=== PATIENT | male | born 1965 | race Caucasian/White ===

== ENCOUNTER → 2023-12-04 14:47 | Outpatient (BNVA) | payer MEDICARE, SELFPAY | DX: I48.91 Unspecified atrial fibrillation (principal) | CPT/HCPCS: 80053; 85025 ==

== ENCOUNTER → 2023-12-10 13:30 | Outpatient (BNVA) | payer MEDICARE, SELFPAY | PROVIDERS: Visit Provider Orthopaedic Surgery | DX: M48.062 Spinal stenosis, lumbar region with neurogenic claudication (principal); Z98.1 Arthrodesis status | CPT/HCPCS: 72110; 99204 ==

== ENCOUNTER 2023-12-24 13:37 | Emergency (ER) | payer MEDICARE, SELFPAY ==
[2023-12-24 14:28] VITALS: BP 117/75; PULSE 83; RESP 18; TEMP 36.4; O2SAT 96
--- NOTE | 2023-12-24 14:49 | CTR_ITS ---
PROCEDURE INFORMATION: Exam: CT Lumbar Spine Without Contrast Exam date and time: 12/24/2023 2:54 PM Age: 58 years old Clinical indication: Low back pain TECHNIQUE: Imaging protocol: Computed tomography of the lumbar spine without contrast. Radiation optimization: All CT scans at this facility use at least one of these dose optimization techniques: automated exposure control; mA and/or kV adjustment per patient size (includes targeted exams where dose is matched to clinical indication); or iterative reconstruction. COMPARISON: CR XR lumbar spine min 4V [id number] 12/10/2023 1:58 PM RADIATION DOSE METRICS: Total DLP (mGy-cm): 873 FINDINGS: Bones/joints: There has been previous lower lumbar dorsal decompression and fusion of the L4 through S1 vertebrae, with bilateral pedicle screws and paraspinal rods. No definite hardware related complication is evident. Bilateral osseous fusion are noted. There is an interbody fusion at the L4-L5. Severe loss disc height is seen at L5-S1. There is no anterior wedging deformity. No acute lucent fracture are visualized. Schmorl's nodes at the L2-L3 level are age indeterminate. There is severe facet arthropathy at L3-L4, the lowest non fused lumbar spinal level. No severe central canal stenosis is demonstrated by CT. Neural foraminal seen bilaterally L3-L4 and L5-S1. Soft tissue density in the right lateral recess at L5-S1 may reflect postoperative changes, but recurrent disc extrusion is not excluded. Soft tissues: Unremarkable. CT/CT lumbar spine wo con* [id number] IMPRESSION: 1. Extensive postsurgical changes of the lower lumbar spine, as above. No hardware related complication is evident. 2. Soft tissue density in the right lateral recess at L5-S1 may reflect postoperative changes, but recurrent disc extrusion is not excluded.
--- NOTE | 2023-12-24 15:32 | W.ED.BACK ---
HPI - Back Pain/Injury General: Chief Complaint: Back Pain/Injury Stated Complaint: Low back pain Time Seen by Provider: 12/24/23 14:47 History of Present Illness: 58-year-old man with a history of COPD, A-fib and pacemaker placement who presents to the emergency room with low back pain after fall this morning. He has chronic low back pain issues and has an MRI scheduled in [place] because he has the pacemaker he cannot have it done here. This morning he tripped over a dog and fell. He is having worsening pain in his low back. He is still ambulatory. No saddle numbness, no urinary retention or incontinence, no focal motor deficit, no sensory deficit. no recent fever. no cough. no shortness of breath. no chest pain. no abdominal pain. no nausea or vomiting. no dysuria. no altered mental status. no edema. Related Data Home Medications Medication Instructions Recorded Confirmed ribavirin 200 mg capsule 400 mg PO QAM 12/04/23 12/10/23 sofosbuvir 400 mg-velpatasvir 100 1 tab PO DAILY 12/04/23 12/10/23 mg tablet (Epclusa) sotalol 80 mg tablet 80 mg PO BID 12/04/23 12/10/23 Previous Rx's Medication Instructions Recorded albuterol sulfate 2.5 mg/3 mL 2.5 mg (3 mL) inhalation QID #75 mL 12/04/23 (0.083 %) solution for nebulization apixaban 5 mg tablet (Eliquis) 5 mg PO BID #60 tabs 12/04/23 cyclobenzaprine 5 mg tablet 5 mg PO TID PRN muscle spasm #90 12/04/23 tabs gabapentin 100 mg capsule 100 mg PO DAILY #30 caps 12/04/23 prednisone 20 mg tablet 20 mg PO DAILY #15 tabs 12/16/23 dexamethasone 6 mg tablet 6 mg PO DAILY 5 days #5 tabs 12/24/23 diclofenac sodium 50 mg 50 mg PO BID PRN pain #14 tabs 12/24/23 tablet,delayed release hydrocodone 5 mg-acetaminophen 325 1 tab PO Q6H PRN pain #20 tabs 12/24/23 mg tablet polyethylene glycol 3350 17 17 g PO DAILY #510 grams 12/24/23 gram/dose oral powder (Miralax) Allergies Allergy/AdvReac Type Severity Reaction Status Date / Time No Known Allergies Allergy Verified 12/24/23 14:33 Review of Systems Narrative: Constitutional symptoms: Negative except as documented in HPI. Skin symptoms: Negative except as documented in HPI. Eye symptoms: Negative except as documented in HPI. ENMT symptoms: Negative except as documented in HPI. Respiratory symptoms: Negative except as documented in HPI. Cardiovascular symptoms: Negative except as documented in HPI. Gastrointestinal symptoms: Negative except as documented in HPI. Genitourinary symptoms: Negative except as documented in HPI. Musculoskeletal symptoms: Negative except as documented in HPI. Neurologic symptoms: Negative except as documented in HPI. Psychiatric symptoms: Negative except as documented in HPI. Endocrine symptoms: Negative except as documented in HPI. PFS ED PFSH: Medical History (Updated 12/24/23 @ 15:37 by Latia Che MD) Encounter to establish care COPD (chronic obstructive pulmonary disease) Atrial fibrillation Hepatitis C Pacemaker 2023 Family History Father Congestive heart failure (CHF) Mother Heart disease Diabetes Brother Diabetes Social History Smoking and tobacco/nicotine status: never used tobacco/nicotine Physical Exam Narrative: EXAM NARRATIVE: General: Alert, no acute distress. Head: Normocephalic Neck: Trachea midline Eye: Extraocular movements are intact. Ears, nose, mouth and throat: Oral mucosa moist Respiratory: Respirations are non-labored Musculoskeletal: Normal ROM Back: no step off, no focal tenderness, some paraspinal muscle tenderness Neurological: Alert and oriented to person, place, time, and situation, No focal neurological deficit observed. Psychiatric: Cooperative, appropriate mood & affect. Course Vital Signs: Vital signs: Vital Signs Temperature 97.5 F L 12/24/23 14:28 Pulse Rate 83 12/24/23 14:28 Respiratory Rate 18 12/24/23 14:28 Blood Pressure 117/75 12/24/23 14:28 Pulse Oximetry 96 12/24/23 14:28 Oxygen Delivery Me thod Room Air 12/24/23 14:28 MDM - Back Pain/Injury Medical Decision Making CT of the lumbar spine: There is hardware present in the lumbar spine. No obvious hardware failures. No fracture. There may be evidence of some disc protrusion. No signs of canal stenosis. Patient will need an MRI and this is being scheduled in [place]. Cannot be done here because of his pacemaker. Good alignment. No step-offs. This was reviewed and interpreted by myself the emergency room physician. Assessment and plan: Acute on chronic low back pain Fall Lumbar strain ? IM Toradol, IM Decadron and p.o. [place]. - Discharged home - Discussed plan with patient. Answered any questions. - Evaluation and treatment of this problem were appropriate in the emergency setting. Labs Radiology Impressions Lumbar Spine CT 12/24/23 14:49 IMPRESSION: 1. Extensive postsurgical changes of the lower lumbar spine, as above. No hardware related complication is evident. 2. Soft tissue density in the right lateral recess at L5-S1 may reflect postoperative changes, but recurrent disc extrusion is not excluded. All radiology interpretation(s) finalized by discharge Discharge Plan Discharge Patient Disposition: Home Clinical Impression: Strain of lumbar region, History of back surgery, Acute exacerbation of chronic low back pain, Fall Condition: Stable Prescriptions: New hydrocodone-acetaminophen 5-325 mg tablet 1 tab PO Q6H PRN (Reason: pain) Qty: 20 0RF dexamethasone 6 mg tablet 6 mg PO DAILY 5 Days Qty: 5 0RF diclofenac sodium 50 mg tablet,delayed release (DR/EC) 50 mg PO BID PRN (Reason: pain) Qty: 14 0RF polyethylene glycol 3350 [Miralax] 17 gram/dose powder 17 g PO DAILY Qty: 510 0RF Rx Instructions: Take 1 scoop daily while taking pain medications. No Action sotalol 80 mg tablet 80 mg PO BID sofosbuvir-velpatasvir [Epclusa] 400-100 mg tablet 1 tab PO DAILY ribavirin 200 mg capsule 400 mg PO QAM Rx Instructions: must administer with food, preferably a high-fat meal albuterol sulfate 2.5 mg /3 mL (0.083 %) solution for nebulization 2.5 mg inhalation QID Qty: 75 0RF Eliquis 5 mg tablet 5 mg PO BID Qty: 60 2RF gabapentin 100 mg capsule 100 mg PO DAILY Qty: 30 2RF cyclobenzaprine 5 mg tablet 5 mg PO TID PRN (Reason: muscle spasm) Qty: 90 0RF prednisone 20 mg tablet 20 mg PO DAILY Qty: 15 0RF Rx Instructions: 60MG for 3 days 40MG for 2 days 20MG for 2 days Discharge Orders: Discharge ED (Routine); Ordered 12/24/23 Ordered By: Latia Che Referrals: Oren Andrews DO [Physician] - 1-3 days (Please call for an appointment and follow-up in the next few days.) Lakeisha Linder, MARGARET [Primary Care Provider] - Discharge Diet: Usual diet Discharge Activity: Increase activity as tolerated Patient Instructions: Back Pain (ED), Opioid Safety, Pain Management Activity Restrictions/Additional Instructions: Thank you for choosing [facility] for your healthcare needs today. Please realize this is an emergency room and that we are providing you with a medical screening exam and this may not be complete and all inclusive of all the testing and or work up that you may need to determine your ailment or severity of your illness. You have been screened and evaluated and felt safe for discharge. Health conditions do change or evolve sometimes and as such it is important that you follow up with your Primary Doctor to be re checked, 3-5 days is a general good time frame for follow up. You are always welcome to return to the ED for re assessment if your symptoms are worsening or you have new concerns Coding Level of Care Code ED Reading Specialist for Colleen Vaughan
[2023-12-24] MEDS: HYDROcodone-acetaminophen 10-325 mg Tablet 1 TAB PO (15:52)
[2023-12-24] MEDS: dexamethasone 10 mg/mL INJ IM (15:53)
[2023-12-24] MEDS: ketorolac 60 mg/2 mL INJ IM (15:55)
[2023-12-24 15:59] VITALS: PULSE 73; RESP 18; O2SAT 98
== END 2023-12-24 16:49 | disposition home or self-care (01) ==
PROVIDERS: Emergency Provider Emergency Medicine
DX: S39.012A Strain of muscle, fascia and tendon of lower back, initial encounter (principal); G89.29 Other chronic pain; Z79.01 Long term (current) use of anticoagulants; J44.9 Chronic obstructive pulmonary disease, unspecified; Z86.19 Personal history of other infectious and parasitic diseases; Z95.0 Presence of cardiac pacemaker; W01.0XXA Fall on same level from slipping, tripping and stumbling without subsequent striking against object, initial encounter
CPT/HCPCS: 72131; 96372; 99284; J1100; J1885

== ENCOUNTER → 2024-01-01 14:10 | Outpatient (BNVA) | payer MEDICAID, SELFPAY | DX: Z76.89 Persons encountering health services in other specified circumstances (principal); R35.1 Nocturia | CPT/HCPCS: 83036; G0103 ==

== ENCOUNTER 2024-01-02 13:39 | Emergency (ER) | payer MEDICARE, SELFPAY ==
[2024-01-02] VITALS (27 sets, daily range): BP systolic 97–118; BP diastolic 63–87; PULSE 73–83; RESP 14–29; TEMP 36.8; O2SAT 92–97; BMI 27.3
--- NOTE | 2024-01-02 13:49 | CT_ITS ---
WS: [id number] CT HEAD NONCONTRAST HISTORY: tia TECHNIQUE: Contiguous axial imaging performed through the brain in 2.5 mm imaging. Bone and soft tiss ue windows. Sagittal and coronal reformats reviewed. All CT scans at [facility] use at least one of these dose optimization techniques: automated exposure control; mA and/or kV adjustment per pa tient size (includes targeted exams where dose is matched to clinical indication); or iterative recon struction. DLP: 1145.75 mGy COMPARISON: None available. No acute intracranial hemorrhage, midline shift or mass effect. Mild volume loss and atrophy. Mild small vessel disease. Mild cerebellar atrophy. Ventricles: Normal size with no hydrocephalus. No inferior displacement of the cerebellar tonsils. Paranasal sinuses: Mild mucoperiosteal thickening in the posterior LEFT ethmoid air cells and LEFT sp henoid sinus. Mastoid air cells: Well pneumatized. Calvarium and scalp: Skull is intact with no soft tissue edema or swelling. Mild atherosclerosis in the intracranial carotid arteries. CT/CT head thrombolytic [id number] IMPRESSION: 1. No acute intracranial hemorrhage or edema. 2. Mild volume loss and small vessel disease. Notified Leah Petit MD at 01/02/2024 2:06 PM.
--- NOTE | 2024-01-02 13:50 | ECG_ITS ---
[facility] Test Date: 2024-01-02 Pat Name: Reji Remy Department: Room: Gender: Male Plant Controller: : 1965 Requested By: Leah Petit Order Number: [id number] Kadie MD: Bryan Lopez M.D. Measurements Intervals [place] Rate: 75 P: 67 TX: 150 QRS: 56 QRSD: 104 T: 37 QT: 401 QTc: 448 Interpretive Statements SINUS RHYTHM NONSPECIFIC T-WAVE ABNORMALITY No previous ECG available for comparison Electronically Signed On 01-02-2024 14:41:45 CDT by Bryan Lopez M.D. [id number]
--- NOTE | 2024-01-02 13:59 | XR_ITS ---
WS: [id number] Examination: XR chest 1V portable [id number] Reason for Exam: tia Date: 01/02/2024 Comparison: None. Findings: The heart is not enlarged mediastinum not widened. The paulino are not enlarged. Pacer leads are in plac e Granulomatous changes are present. There is no pulmonary edema. There is no large effusion. I see no dense consolidation. XR/XR chest 1V portable [id number] Impression: No acute lung process is seen.
[2024-01-02 14:08] LABS: Glucose Point of Care 543 mg/dL (70-110)
[2024-01-02 14:26] LABS: Basophils % 0.4 %; Eosinophils # 0.2 10^3/uL (0.0-0.8); Hematocrit 41.8 % (37-53); Lymphocytes # 2.4 10^3/uL (0.8-4.8); Lymphocytes % 20.8 %; Mean Corpuscular HGB Conc 36.6 g/dL (30-55); Mean Corpuscular Hemoglobin 32.7 pg (27-33); Mean Corpuscular Volume 89.3 fl (82-101); Mean Platelet Volume 9.6 fL (7.4-10.4); Monocytes # 0.7 10^3/uL (0.2-0.9); Monocytes % 6.4 %; Nucleated Red Blood Cells % 0 %; Platelet Count 362 10^3/cmm (157-399); Red Blood Count 4.68 10^6/uL (3.85-5.65); White Blood Count 11.28 10^3/uL (3.29-11.43)
--- NOTE | 2024-01-02 14:27 | ED_ITS ---
HPI - Altered Mental Status 2 General: Chief Complaint: Altered Mental Status Stated Complaint: possible tia Time Seen by Provider: 01/02/24 13:59 Source: patient Mode of arrival: ambulatory Limitations: no limitations History of Present Illness: 58-year-old male states roughly an hour before arrival he started to get a headache he states he had had some confusion with a headache and had numbness to the left side of his face. Patient states that his symptoms are since resolved his headaches improved is mild currently he states he no longer has any numbness he is ambulatory here he has no slurred speech no focal weakness. He states he is recently diagnosed with diabetes but is not started his meds. Denies any chest pain or fever Related Data Home Medications Medication Instructions Recorded Confirmed ribavirin 200 mg capsule 400 mg PO QAM 12/04/23 01/01/24 sofosbuvir 400 mg-velpatasvir 100 1 tab PO DAILY 12/04/23 01/01/24 mg tablet (Epclusa) sotalol 80 mg tablet 80 mg PO BID 12/04/23 01/01/24 Previous Rx's Medication Instructions Recorded albuterol sulfate 2.5 mg/3 mL 2.5 mg (3 mL) inhalation QID #75 mL 12/04/23 (0.083 %) solution for nebulization apixaban 5 mg tablet (Eliquis) 5 mg PO BID #60 tabs 12/04/23 prednisone 20 mg tablet 20 mg PO DAILY #15 tabs 12/16/23 citalopram 20 mg tablet (Celexa) 20 mg PO DAILY #30 tabs 01/01/24 cyclobenzaprine 5 mg tablet 5 mg PO TID PRN muscle spasm #90 01/01/24 tabs fluticasone propionate 50 1 spray intranasal BID #16 grams 01/01/24 mcg/actuation nasal spray,suspension (Flonase Allergy Relief) gabapentin 100 mg capsule 200 mg (2 x 100 mg) PO DAILY #60 01/01/24 caps metformin 500 mg tablet,extended 500 mg PO BID #60 tabs 01/02/24 release 24 hr ondansetron 4 mg disintegrating 4 mg PO Q6H PRN nausea and 01/02/24 tablet vomiting #14 tabs Allergies Allergy/AdvReac Type Severity Reaction Status Date / Time No Known Allergies Allergy Verified 01/01/24 13:34 Review of Systems 2 Const: Denies: fever(s), chills, body aches or change in appetite Eyes: Denies: blurry vision or eye discomfort ENMT: Denies: throat pain or dental pain Card: Denies: chest pain Resp: Denies: dyspnea GI: Denies: abdominal pain, nausea, vomiting or diarrhea Musc: Denies: neck pain or back pain Skin/Breast: Denies: rash Neuro: Reports: headache(s) PFSH ED 2 PFSH: Medical History (Updated 01/02/24 @ 16:07 by Leah Petit MD) Diabetes mellitus Depression Nocturia Encounter to establish care COPD (chronic obstructive pulmonary disease) Atrial fibrillation Hepatitis C Pacemaker 2023 Family History Father Congestive heart failure (CHF) Mother Heart disease Diabetes Brother Diabetes Social History Smoking and tobacco/nicotine status: never used tobacco/nicotine Physical Exam 2 Const: COMMON NORMALS: no acute distress, patient oriented x3 and healthy appearing HENMT: COMMON NORMALS: normocephalic and atraumatic HEAD & SCALP: n ormocephalic and atraumatic Neck/C-Spine: COMMON NORMALS: full ROM and supple Chest: COMMONS NORMALS: normal inspection of the chest and normal palpation of entire chest wall Resp: COMMON NORMALS: normal respiratory effort, No retractions, No use of accessory muscles and clear to auscultation bilaterally AUSCULTATION: clear to auscultation bilaterally Cardio: COMMON NORMALS: regular rate, regular rhythm and No murmurs present (Cardio) RATE: regular rate RHYTHM: regular rhythm Extremity: COMMON NORMALS: normal to inspection and full ROM Neuro: COMMON NORMALS: patient oriented x3, moves all extremities and no focal motor deficits CRANIAL NERVES: Yes CN normal except as noted SPEECH: s peech normal GAIT: Yes Normal gait present MOTOR EXAM: 5/5 motor strength present throughout Psych: COMMON NORMALS: mental status grossly normal, Normal thought process present and cooperative THOUGHT PROCESS: Normal thought process present Skin: COMMON NORMALS: no rashes or lesions noted and no wounds GENERAL SKIN EXAM: no rashes or lesions noted Course 2 Vital Signs: Vital signs: Vital Signs Temperature 98.2 F 01/02/24 13:46 Pulse Rate 76 01/02/24 16:35 Respiratory Rate 21 H 01/02/24 16:10 Blood Pressure 118/87 01/02/24 16:35 Pulse Oximetry 96 01/02/24 16:35 Oxygen Delivery Me thod Room Air 01/02/24 15:50 MDM - Altered Mental Status Medical Decision Making Patient presents with a headache he had had some facial numbness as well. His symptoms resolved his headaches resolved currently has no signs of a stroke here is a new onset diabetic is physician has just called him and metformin is blood sugars improved here we will prescribe some Zofran he stable for discharge she is follow-up with PCP return if worsening Medical Records I reviewed the patient's medical records. Lab Data I reviewed the patient's lab results. 01/02/24 14:13 01/02/24 14:[address] 01/02/24 13:49 IMPRESSION: 1. No acute intracranial hemorrhage or edema. 2. Mild volume loss and small vessel disease. Notified Leah Petit MD at 01/02/2024 2:06 PM. Chest X-Ray 01/02/24 13:59 Impression: No acute lung process is seen. Laboratory Results WBC 11.28 10^3/uL (3.29-11.43) 01/02/24 14:13 RBC 4.68 10^6/uL (3.85-5.65) 01/02/24 14:13 Hgb 15.30 g/dL (11.27-16.99) 01/02/24 14:13 Hct 41.8 % (37-53) 01/02/24 14:13 MCV 89.3 fl (82-101) 01/02/24 14:13 MCH 32.7 pg (27-33) 01/02/24 14:13 MCHC 36.6 g/dL (30-55) 01/02/24 14:13 RDW 12.0 % (12.1-15.1) L 01/02/24 14:13 Plt Count 362 10^3/cmm (157-399) 01/02/24 14:13 MPV 9.6 fL (7.4-10.4) 01/02/24 14:13 Neut % (Auto) 70.0 % 01/02/24 14:13 Lymph % (Auto) 20.8 % 01/02/24 14:13 [place] % (Auto) 6.4 % 01/02/24 14:13 Eos % (Auto) 2.0 % 01/02/24 14:13 Baso % (Auto) 0.4 % 01/02/24 14:13 Neut # (Auto) 7.90 10^3/uL (1.8-7.7) H 01/02/24 14:13 Lymph # (Auto) 2.4 10^3/uL (0.8-4.8) 01/02/24 14:13 [place] # (Auto) 0.7 10^3/uL (0.2-0.9) 01/02/24 14:13 Eos # (Auto) 0.2 10^3/uL (0.0-0.8) 01/02/24 14:13 Baso # (Auto) 0.0 10^3/uL (0.0-0.1) 01/02/24 14:13 Nucleated RBC % (auto) 0 % 01/02/24 14:13 Nucleated RBCs # 0.0 /100WBC 01/02/24 14:13 PT 15.90 SECONDS (12.1-14.9) H 01/02/24 14:13 INR 1.23 (0.8-1.2) H 01/02/24 14:13 Sodium 126 mmol/L (136-145) L 01/02/24 14:13 Potassium 4.3 mmol/L (3.5-5.1) 01/02/24 14:13 Chloride 87 mmol/L (98-107) L 01/02/24 14:13 Carbon Dioxide 20 mmol/L (22-29) L 01/02/24 14:13 Anion Gap 23.3 (5-19) H 01/02/24 14:13 BUN 32 mg/dL (8-23) H 01/02/24 14:13 Creatinine 1.6 mg/dL (0.7-1.2) H 01/02/24 14:13 GFR Calculation 44.3 mL/min (90-130) L 01/02/24 14:13 Glucose 535 mg/dL (65-115) H* 01/02/24 14:13 POC Glucose 256 mg/dL (70-110) H 01/02/24 15:53 Calculated Osmolality 293 mOsm/kg (285-295) 01/02/24 14:13 Calcium 8.9 mg/dL (8.5-10.5) 01/02/24 14:13 Total Bilirubin 0.7 mg/dL (0.15-1.2) 01/02/24 14:13 AST 26 U/L (0-40) 01/02/24 14:13 ALT 29 U/L (0-41) 01/02/24 14:13 Alkaline Phosphatase 69 U/L (40-130) 01/02/24 14:13 Total Protein 7.6 g/dL (6.6-8.7) 01/02/24 14:13 Albumin 4.1 g/dL (3.5-5.2) 01/02/24 14:13 Globulin 3.5 g/dL (1.3-4.6) 01/02/24 14:13 Ethyl Alcohol 52 mg/dL (0-10) H 01/02/24 14:13 All radiology interpretation(s) finalized by discharge Discharge Plan Discharge Patient Disposition: Home Clinical Impression: Headache, Hyperglycemia Condition: Stable Prescriptions: New ondansetron 4 mg tablet,disintegrating 4 mg PO Q6H PRN (Reason: nausea and vomiting) Qty: 14 0RF No Action sotalol 80 mg tablet 80 mg PO BID sofosbuvir-velpatasvir [Epclusa] 400-100 mg tablet 1 tab PO DAILY ribavirin 200 mg capsule 400 mg PO QAM Rx Instructions: must administer with food, preferably a high-fat meal albuterol sulfate 2.5 mg /3 mL (0.083 %) solution for nebulization 2.5 mg inhalation QID Qty: 75 0RF Eliquis 5 mg tablet 5 mg PO BID Qty: 60 2RF gabapentin 100 mg capsule 200 mg PO DAILY Qty: 60 2RF cyclobenzaprine 5 mg tablet 5 mg PO TID PRN (Reason: muscle spasm) Qty: 90 2RF fluticasone propionate [Flonase Allergy Relief] 50 mcg/actuation spray,suspension 1 spray intranasal BID Qty: 16 2RF Rx Instructions: administer into each nostril citalopram [Celexa] 20 mg tablet 20 mg PO DAILY Qty: 30 2RF prednisone 20 mg tablet 20 mg PO DAILY Qty: 15 0RF Rx Instructions: 60MG for 3 days 40MG for 2 days 20MG for 2 days metformin 500 mg tablet extended release 24 hr 500 mg PO BID Qty: 60 2RF Discharge Orders: Discharge ED (Routine); Ordered 01/02/24 Ordered By: Leah Petit Referrals: Lakeisha Linder, INTERNAL CONTROLS SPECIALIST [Primary Care Provider] - 4-7 days Discharge Diet: Advance as tolerated Discharge Activity: Resume usual activity Patient Instructions: Diabetic Hyperglycemia (ED), General Headache (ED) Coding Level of Care Code ED Horse Race Timer for Chg Thiernod NIH stroke score NIHSS Level Of Consciousness - 1a: 0 Level Of Consciousness Questions - 1b: Both Correct Level Of Consciousness Commands - 1c: Both Correct Best Gaze - 2: Normal Visual Huitron - 3: No Visual Loss Facial Palsy - 4: Normal Motor Arm Right - 5: No Drift Motor Arm Left - 5: No Drift Motor Leg Right - 6: No Drift Motor Leg Left - 6: No Drift Limb Ataxia - 7: Absent Sensory - 8: Normal Best Language - 9: No Aphasia Dysarthia - 10: Normal Extinction And Inattention - 11: 0 Score Total Score: 0
[2024-01-02 14:43] LABS: Alanine Aminotransferase 29 U/L (0-41); Albumin Level 4.1 g/dL (3.5-5.2); Alcohol Level 52 mg/dL (0-10); Alkaline Phosphatase 69 U/L (40-130); Aspartate Amino Transferase 26 U/L (0-40); Blood Urea Nitrogen 32 mg/dL (8-23); Calcium 8.9 mg/dL (8.5-10.5); Carbon Dioxide 20 mmol/L (22-29); Chloride 87 mmol/L (98-107); Creatinine Clr Calc Pharmacy 54.4822; Globulin 3.5 g/dL (1.3-4.6); Glomerular Filtration Rate 44.3 mL/min (90-130); Osmolality Calculated 293 mOsm/kg (285-295); Sodium 126 mmol/L (136-145); Total Bilirubin 0.7 mg/dL (0.15-1.2); Total Protein 7.6 g/dL (6.6-8.7)
[2024-01-02 14:48] LABS: Anion Gap 23.3 (5-19); Glucose 535 mg/dL (65-115); Potassium 4.3 mmol/L (3.5-5.1)
[2024-01-02 14:53] LABS: INR 1.23 (0.8-1.2)
[2024-01-02] MEDS: sodium chloride 0.9% 1,000 ML 999 ML IV ×2 (14:53→15:15)
[2024-01-02] MEDS: ondansetron 2 mg/ML SDV 2 mL 4 MG IVP (14:54)
[2024-01-02] MEDS: morphine 4 mg/mL SDV 1 mL IVP (14:59)
[2024-01-02] MEDS: insulin regular-human 100 units/1 mL 10 UNIT IVP (15:02)
[2024-01-02 15:58] LABS: Glucose Point of Care 256 mg/dL (70-110)
== END 2024-01-02 16:35 | disposition home or self-care (01) ==
PROVIDERS: Emergency Provider Emergency Medicine
DX: R51.9 Headache, unspecified (principal); E11.65 Type 2 diabetes mellitus with hyperglycemia; J44.9 Chronic obstructive pulmonary disease, unspecified; Z86.19 Personal history of other infectious and parasitic diseases; Z95.0 Presence of cardiac pacemaker; Z79.01 Long term (current) use of anticoagulants; Z79.84 Long term (current) use of oral hypoglycemic drugs
CPT/HCPCS: 36416; 70450; 71045; 80053; 80307; 82962; 85025; 85610; 93005; 96361; 96374; 96375; 99285; J1815; J2270; J2405; J7030

== ENCOUNTER → 2024-03-02 13:52 | Outpatient (BNVA) | payer MEDICARE, SELFPAY | DX: Z95.0 Presence of cardiac pacemaker (principal) | CPT/HCPCS: 93005 ==

== ENCOUNTER 2024-05-15 18:16 | Emergency (ER) | payer MEDICARE, SELFPAY ==
[2024-05-15] VITALS (8 sets, daily range): BP systolic 92–105; BP diastolic 57–76; PULSE 67–72; RESP 16–20; TEMP 36.4; O2SAT 91–97; BMI 27.2
--- NOTE | 2024-05-15 18:44 | XRR_ITS ---
PROCEDURE INFORMATION: Exam: XR Lumbosacral Spine Exam date and time: 05/15/2024 7:23 PM Age: 58 years old Clinical indication: Lumbago; Patient HX: Low back pain; HX lumbar discectomy/fusion x 5; Additional info: Fall low back pain TECHNIQUE: Imaging protocol: Radiologic exam of the lumbosacral spine. Views: 2 or 3 views. COMPARISON: CT lumbar spine wo con* [id number] 12/24/2023 2:54 PM FINDINGS: Bones/joints: Posterior instrumented fusion from L5-S1 with interbody cage graft at L4-L5. Hardware appears intact without complication. L4 and L5 laminectomies. Similar degenerative changes of the lumbar spine. No acute fracture. Vertebral body heights are maintained. Soft tissues: Unremarkable. XR/XR lumbar spine 2-3V* [id number] IMPRESSION: 1. No acute osseous findings. 2. Postsurgical changes in the lower lumbar spine.
--- NOTE | 2024-05-15 18:44 | XRR_ITS ---
PROCEDURE INFORMATION: Exam: XR Chest Exam date and time: 05/15/2024 8:10 PM Age: 58 years old Clinical indication: Fever; Prior surgery; Surgery date: 6+ months; Surgery type: Pacemaker; Additional info: Syncope; Fever TECHNIQUE: Imaging protocol: Radiologic exam of the chest. Views: 1 view. COMPARISON: CR XR chest 1V portable [id number] 01/02/2024 2:20 PM FINDINGS: Tubes, catheters and devices: Left subclavian pacer is in stable position. Lungs: Calcified granulomas in the left lung. No focal consolidation or evidence of pulmonary edema. Pleural spaces: Unremarkable. No pleural effusion. No pneumothorax. Heart/Mediastinum: Unremarkable. No cardiomegaly. Bones/joints: Unremarkable. XR/XR chest 1V portable [id number] IMPRESSION: No acute cardiopulmonary findings.
--- NOTE | 2024-05-15 18:57 | ECG_ITS ---
[facility] Date: [facility] Pat Name: Reji Remy Department: Room: Gender: Male Superintendent Drivers: : 1965 Requested By: Latia Mayo Order Number: [id number] Kadie MD: LORE CROW Measurements Intervals [place] Rate: 76 P: 75 NM: 160 QRS: 72 QRSD: 96 T: 67 QT: 409 QTc: 460 Interpretive Statements SINUS RHYTHM NONSPECIFIC T-WAVE ABNORMALITY Compared to ECG 01/02/2024 14:08:32 No significant changes Electronically Signed On 05-15-2024 23:18:48 HISTORICAL RECORDS ADMINISTRATOR by LORE CROW [id number]
[2024-05-15 19:01] LABS: Glucose Point of Care 142 mg/dL (70-110)
[2024-05-15] MEDS: ketorolac 30 mg/mL INJ IVP (19:18)
[2024-05-15 19:26] LABS: INR 1.01 (0.8-1.2)
[2024-05-15 19:28] LABS: Basophils # 0.1 10^3/uL (0.0-0.1); Eosinophils # 0.6 10^3/uL (0.0-0.8); Eosinophils % 6.8 %; Hematocrit 40.6 % (37-53); Lymphocytes # 3.1 10^3/uL (0.8-4.8); Lymphocytes % 38.3 %; Mean Corpuscular HGB Conc 36.2 g/dL (30-55); Mean Corpuscular Hemoglobin 32.1 pg (27-33); Mean Corpuscular Volume 88.6 fl (82-101); Mean Platelet Volume 9.4 fL (7.4-10.4); Monocytes # 0.8 10^3/uL (0.2-0.9); Monocytes % 9.5 %; Neutrophils # 3.61 10^3/uL (1.8-7.7); Neutrophils % 44.3 %; Nucleated Red Blood Cells % 0 %; Platelet Count 246 10^3/cmm (157-399); Red Blood Count 4.58 10^6/uL (3.85-5.65); Red Cell Distribution Width 11.6 % (12.1-15.1); White Blood Count 8.13 10^3/uL (3.29-11.43)
[2024-05-15 19:32] LABS: Alanine Aminotransferase 27 U/L (0-41); Albumin Level 4.3 g/dL (3.5-5.2); Alkaline Phosphatase 80 U/L (40-130); Aspartate Amino Transferase 26 U/L (0-40); Blood Urea Nitrogen 21 mg/dL (8-23); Carbon Dioxide 18 mmol/L (22-29); Chloride 97 mmol/L (98-107); Creatinine Clr Calc Pharmacy 72.4752; Globulin 3.1 g/dL (1.3-4.6); Glomerular Filtration Rate 61.8 mL/min (90-130); Glucose 128 mg/dL (65-115); Osmolality Calculated 277 mOsm/kg (285-295); Sodium 131 mmol/L (136-145); Total Bilirubin 0.4 mg/dL (0.15-1.2); Total Protein 7.4 g/dL (6.6-8.7)
[2024-05-15] MEDS: orphenadrine 30 mg/mL Inj 2 mL 60 MG IVP (20:24)
[2024-05-15] MEDS: morphine 4 mg/mL SDV 1 mL IVP (20:24)
--- NOTE | 2024-05-15 21:00 | W.ED.SYNCOPE ---
HPI - Syncope General: Chief Complaint: Syncope Stated Complaint: Passed out 4 times and fell Fever last 20 minutes Time Seen by Provider: 05/15/24 18:44 History of Present Illness: Patient presents to the ER with new onset syncopal episodes. Patient admits passing out twice a day at least 1 time falling down on his butt and injuring his low back. Patient does have a history of several back surgeries. Patient not hit his head. Patient is on Eliquis. Patient said he is mildly nauseous this may be due to the severe pain in his low back. Patient has no other complaints at this time. Related Data Home Medications Medication Instructions Recorded Confirmed ribavirin 200 mg capsule 400 mg PO QAM 12/04/23 03/02/24 sofosbuvir 400 mg-velpatasvir 100 1 tab PO DAILY 12/04/23 03/02/24 mg tablet (Epclusa) sotalol 80 mg tablet 80 mg PO BID 12/04/23 03/02/24 Previous Rx's Medication Instructions Recorded albuterol sulfate 2.5 mg/3 mL 2.5 mg (3 mL) inhalation QID #75 mL 12/04/23 (0.083 %) solution for nebulization prednisone 20 mg tablet 20 mg PO DAILY #15 tabs 12/16/23 cyclobenzaprine 5 mg tablet 5 mg PO TID PRN muscle spasm #90 01/01/24 tabs ondansetron 4 mg disintegrating 4 mg PO Q6H PRN nausea and 01/02/24 tablet vomiting #14 tabs glimepiride 1 mg tablet 1 mg PO QAM #30 tabs 03/03/24 apixaban 5 mg tablet (Eliquis) 5 mg PO BID #60 tabs 03/19/24 fluticasone propionate 50 1 spray intranasal BID #16 grams 03/25/24 mcg/actuation nasal spray,suspension (Flonase Allergy Relief) gabapentin 100 mg capsule 200 mg (2 x 100 mg) PO DAILY #60 03/25/24 caps gulcometer, stips, and lancets #1 ea 03/25/24 citalopram 20 mg tablet (Celexa) 20 mg PO DAILY #30 tabs 04/01/24 metformin 500 mg tablet,extended 500 mg PO BID #60 tabs 05/05/24 release 24 hr tadalafil 5 mg tablet (Cialis) 5 mg PO DAILY #30 tabs 05/05/24 Allergies Allergy/AdvReac Type Severity Reaction Status Date / Time No Known Allergies Allergy Verified 03/02/24 13:52 Review of Systems General: Reports: 10 or more systems reviewed and unremarkable except in HPI and below PFSH ED PFSH: Medical History Syncope Erectile dysfunction Diabetes mellitus Depression Nocturia Encounter to establish care COPD (chronic obstructive pulmonary disease) Atrial fibrillation Hepatitis C Pacemaker 2023 Family History Father Congestive heart failure (CHF) Mother Heart disease Diabetes Brother Diabetes Social History Smoking and tobacco/nicotine status: never used tobacco/nicotine Physical Exam Const: COMMON NORMALS: no acute distress, average body habitus, patient oriented x3, no limitations, healthy appearing, alert and well nourished HENMT: COMMON NORMALS: normocephalic, atraumatic, hearing grossly normal bilaterally, external ears normal, Normal external nose present and moist oral mucous membranes HEAD & SCALP: normocephalic and atraumatic NOSE: Normal external nose present EXTERNAL EAR: Yes external ears normal Eye: COMMON NORMALS: Equal, round and reactive pupils present, EOMs intact bilaterally, conjunctivae normal and no scleral icterus CONJUNCTIVA: Yes conjunctivae normal PUPIL: Yes Equal, round and reactive pupils present Neck/C-Spine: COMMON NORMALS: full ROM, no lymphadenopathy, supple, no meningeal signs, no JVD and Thyroid normal THYROID: Thyroid normal Chest: COMMONS NORMALS: normal inspection of the chest and normal palpation of entire chest wall Resp: COMMON NORMALS: normal respiratory effort, No retractions, No use of accessory muscles and clear to auscultation bilaterally AUSCULTATION: clear to auscultation bilaterally Cardio: COMMON NORMALS: no JVD, regular rate, regular rhythm, S1 normal heart sound present, S2 normal heart sound present, No gallops present (Cardio), No clicks present (Cardio), No murmurs present (Cardio) and No rub (Cardio) RATE: regular rate RHYTHM: regular rhythm HEART SOUNDS: S1 normal heart sound present and S2 normal heart sound present GI: COMMON NORMALS: Normal to inspection, nondistended, normoactive bowel sounds present, Soft to palpation, non-tender, No hepatosplenomegaly present and no masses PALPATION: Yes Soft to palpation and Yes No hepatosplenomegaly present Neuro: COMMON NORMALS: patient oriented x3 SENSORIUM/ORIENTATION: Yes alert MENINGEAL SIGNS: Yes no meningeal signs Course Vital Signs: Vital signs: Vital Signs Temperature 97.6 F 05/15/24 18:32 Pulse Rate 67 05/15/24 21:17 Respiratory Rate 18 05/15/24 21:19 Blood Pressure 104/76 05/15/24 21:17 Pulse Oximetry 95 05/15/24 21:19 Oxygen Delivery Me thod Room Air 05/15/24 18:32 MDM - Syncope Medical Decision Making Lab work was obtained as well as chest x-ray and lumbar spine x-ray, all essentially benign. Patient was informed of these results. Patient thinks the problem was he got up too quickly got lightheaded dizzy did not stop Walking and then passed out. His blood pressure here has been in the 90s to low 100s. We will decrease his blood pressure medicine and have him follow-up with his PCP. Medical Records I reviewed the patient's medical records. Lab Data I reviewed the patient's lab results. 05/15/24 19:07 05/15/24 19:07 Radiology Impressions Chest X-Ray 05/15/24 18:44 IMPRESSION: No acute cardiopulmonary findings. Lumbar Spine X-Ray 05/15/24 18:44 IMPRESSION: 1. No acute osseous findings. 2. Postsurgical changes in the lower lumbar spine. Laboratory Results WBC 8.13 10^3/uL (3.29-11.43) 05/15/24 19:07 RBC 4.58 10^6/uL (3.85-5.65) 05/15/24 19:07 Hgb 14.70 g/dL (11.27-16.99) 05/15/24 19:07 Hct 40.6 % (37-53) 05/15/24 19:07 MCV 88.6 fl (82-101) 05/15/24 19:07 MCH 32.1 pg (27-33) 05/15/24 19:07 MCHC 36.2 g/dL (30-55) 05/15/24 19:07 RDW 11.6 % (12.1-15.1) L 05/15/24 19:07 Plt Count 246 10^3/cmm (157-399) 05/15/24 19:07 MPV 9.4 fL (7.4-10.4) 05/15/24 19:07 Neut % (Auto) 44.3 % 05/15/24 19:07 Lymph % (Auto) 38.3 % 05/15/24 19:07 [place] % (Auto) 9.5 % 05/15/24 19:07 Eos % (Auto) 6.8 % 05/15/24 19:07 Baso % (Auto) 1.0 % 05/15/24 19:07 Neut # (Auto) 3.61 10^3/uL (1.8-7.7) 05/15/24 19:07 Lymph # (Auto) 3.1 10^3/uL (0.8-4.8) 05/15/24 19:07 [place] # (Auto) 0.8 10^3/uL (0.2-0.9) 05/15/24 19:07 Eos # (Auto) 0.6 10^3/uL (0.0-0.8) 05/15/24 19:07 Baso # (Auto) 0.1 10^3/uL (0.0-0.1) 05/15/24 19:07 Nucleated RBC % (auto) 0 % 05/15/24 19:07 Nucleated RBCs # 0.0 /100WBC 05/15/24 19:07 PT 14.00 SECONDS (12.1-14.9) 05/15/24 19:07 INR 1.01 (0.8-1.2) 05/15/24 19:07 Sodium 131 mmol/L (136-145) L 05/15/24 19:07 Potassium 4.0 mmol/L (3.5-5.1) 05/15/24 19:07 Chloride 97 mmol/L (98-107) L 05/15/24 19:07 Carbon Dioxide 18 mmol/L (22-29) L 05/15/24 19:07 Anion Gap 20.0 (5-19) H 05/15/24 19:07 BUN 21 mg/dL (8-23) 05/15/24 19:07 Creatinine 1.2 mg/dL (0.7-1.2) 05/15/24 19:07 GFR Calculation 61.8 mL/min (90-130) L 05/15/24 19:07 Glucose 128 mg/dL (65-115) H 05/15/24 19:07 POC Glucose 142 mg/dL (70-110) H 05/15/24 18:36 Calculated Osmolality 277 mOsm/kg (285-295) L 05/15/24 19:07 Calcium 9.0 mg/dL (8.5-10.5) 05/15/24 19:07 Total Bilirubin 0.4 mg/dL (0.15-1.2) 05/15/24 19:07 AST 26 U/L (0-40) 05/15/24 19:07 ALT 27 U/L (0-41) 05/15/24 19:07 Alkaline Phosphatase 80 U/L (40-130) 05/15/24 19:07 Total Protein 7.4 g/dL (6.6-8.7) 05/15/24 19:07 Albumin 4.3 g/dL (3.5-5.2) 05/15/24 19:07 Globulin 3.1 g/dL (1.3-4.6) 05/15/24 19:07 All radiology interpretation(s) finalized by discharge Discharge Plan Discharge Patient Disposition: Home Clinical Impression: Syncope due to orthostatic hypotension Condition: Stable Prescriptions: No Action sotalol 80 mg tablet 80 mg PO BID sofosbuvir-velpatasvir [Epclusa] 400-100 mg tablet 1 tab PO DAILY ribavirin 200 mg capsule 400 mg PO QAM Rx Instructions: must administer with food, preferably a high-fat meal albuterol sulfate 2.5 mg /3 mL (0.083 %) solution for nebulization 2.5 mg inhalation QID Qty: 75 0RF cyclobenzaprine 5 mg tablet 5 mg PO TID PRN (Reason: muscle spasm) Qty: 90 2RF glimepiride 1 mg tablet 1 mg PO QAM Qty: 30 0RF Rx Instructions: administer with breakfast prednisone 20 mg tablet 20 mg PO DAILY Qty: 15 0RF Rx Instructions: 60MG for 3 days 40MG for 2 days 20MG for 2 days Eliquis 5 mg tablet 5 mg PO BID Qty: 60 2RF (DME) gulcometer, stips, and lancets See Rx Instructions .Route .MEDSUPPLY Qty: 1 0RF Rx Instructions: As directed fluticasone propionate [Flonase Allergy Relief] 50 mcg/actuation spray,suspension 1 spray intranasal BID Qty: 16 2RF Rx Instructions: administer into each nostril gabapentin 100 mg capsule 200 mg PO DAILY Qty: 60 2RF citalopram [Celexa] 20 mg tablet 20 mg PO DAILY Qty: 30 2RF tadalafil [Cialis] 5 mg tablet 5 mg PO DAILY Qty: 30 0RF metformin 500 mg tablet extended release 24 hr 500 mg PO BID Qty: 60 2RF ondansetron 4 mg tablet,disintegrating 4 mg PO Q6H PRN (Reason: nausea and vomiting) Qty: 14 0RF Discharge Orders: Discharge ED (Routine); Ordered 05/15/24 Ordered By: Adarsh Eli Referrals: Lakeisha Linder, TECHNICIAN AUTOMATED EQUIPMENT [Primary Care Provider] - 1 week Patient Instructions: Syncope (ED), Hypotension (ED) Activity Restrictions/Additional Instructions: Please cut your olmesartan 40 mg tablets into half. Take half or 20 mg a day and see if this increases your blood pressure and makes it less likely to have orthostatic hypotension and syncope. Please keep a blood pressure log and follow-up with your family physician within the next 7 days for further evaluation and treatment. Thank you for choosing [facility] for your healthcare needs today. Please realize that you were seen in the emergency department and that we are providing you with an emergency medical screening exam and this may not be a complete and all exclusive of all testing and/or medical workup we may need to determine your element or severity of your illness. It is very important that you follow-up as instructed with your primary care provider or specialist for the additional evaluation and to discuss your medical treatment plan. You may return to the emergency department should you have concerns or if your condition changes or worsens in any way. Coding Level of Care Code ED Gold Frame Assembler for Colleen Vaughan
[2024-05-15] MEDS: HYDROmorphone 1 mg/mL INJ 1 mL IVP ×2 (21:19→22:50)
== END 2024-05-15 23:00 | disposition home or self-care (01) ==
PROVIDERS: Emergency Provider Emergency Medicine
DX: I95.1 Orthostatic hypotension (principal); Z79.01 Long term (current) use of anticoagulants; Z79.84 Long term (current) use of oral hypoglycemic drugs; J44.9 Chronic obstructive pulmonary disease, unspecified; Z95.0 Presence of cardiac pacemaker; E11.9 Type 2 diabetes mellitus without complications
CPT/HCPCS: 36416; 71045; 72100; 80053; 82962; 85025; 85610; 93005; 96374; 96375; 96376; 99285; J1171; J1885; J2270; J2360

== ENCOUNTER → 2024-06-02 10:56 | Outpatient (BNVA) | payer MEDICARE, SELFPAY | PROVIDERS: PCP Family Medicine; Visit Provider Family Medicine | DX: E11.9 Type 2 diabetes mellitus without complications (principal) | CPT/HCPCS: 82043; 83036; 84439; 84443 ==

== ENCOUNTER 2024-06-30 08:41 | Outpatient (CLI) | payer MEDICARE, SELFPAY ==
--- NOTE | 2024-06-30 08:47 | CT_ITS ---
WS: [id number] LDCT LUNG CANCER SCREENING HISTORY: NICOTINE DEPENDENCE, CIGARETTES TECHNIQUE: Axial imaging performed from the apices to 1 cm below the costophrenic angles. Coronal and sagittal reformats are submitted with axial MIP series. All CT scans at [facility] use at least one of these dose optimization techniques: automated exposure control; mA and/or kV adjustment per patient size (includes targeted exams where dose is matched to clinical indication); or iterative reconstruction. DLP: 73.11 mGy.cm DIvol: Mean CTDIvol: 1.60 (mGy) COMPARISON: None available. Diagnostic quality: Satisfactory Lungs: Normally aerated lungs. Benign granulomata. No mass or nodule. No endobronchial lesions. Heart: Normal size heart with no pericardial effusion.. LEFT subclavian cardiac pacer. Other findings: Calcified LEFT hilar lymph nodes. No adenopathy. Normal size aorta. Normal size pulmonary artery. Incompletely visualized adrenal glands. CT/CT lung screening [id number] IMPRESSION: LUNG-RADS: 1-Negative FOLLOW UP: 12 Month: Continue annual screening with LDCT OTHER FINDINGS (S MODIFIER): None.
== END 2024-06-30 08:42 | disposition home or self-care (01) ==
PROVIDERS: PCP Family Medicine; Visit Provider Family Medicine
DX: Z12.2 Encounter for screening for malignant neoplasm of respiratory organs (principal); F17.218 Nicotine dependence, cigarettes, with other nicotine-induced disorders; J84.10 Pulmonary fibrosis, unspecified; Z96.89 Presence of other specified functional implants; I89.8 Other specified noninfective disorders of lymphatic vessels and lymph nodes
CPT/HCPCS: 71271; 82043; 83036; 84439; 84443

== ENCOUNTER 2024-11-14 11:50 | Emergency (ER) | payer MEDICARE, SELFPAY ==
--- OUTSIDE RECORDS SUMMARY | 2020-06-05 19:00 | XMS_ITS | Continuity of Care Document ---
Author Organization [facility] oup Address [address] [place] [address] Phone Care Team Providers Care Graphic Coordinator Name Role Phone Waylon Holder MD Unavailable Unavailable Allergies, Adverse Reactions, Alerts Substance Reaction Status Criticality No Known Allergies Active No Inform ation Medications Medication Instructions Dosage Effective Dates (start - stop) Status Comments Chantix 1 mg tablet take 1 tablet by oral route 2 times every day with glass of water after meals 1 MG - Active pt to take 1/2 tab once a day for 3 days, then 1/2 tab twice a day for 4 days, then finally 1 tab twice a day thereafter Cialis 20 mg tablet take 1 tablet by oral route every day 20 MG - Active albuterol sulfate HFA 90 mcg/actuation aerosol inhaler inhale 2 puff by inhalation route every 4 - 6 hours as needed 180 MCG - Active cyclobenzaprine 5 mg tablet take 1 tablet by oral route every day 5 MG - Active meclizine 25 mg tablet take 1 tablet by oral route every day as needed 25 MG - Active oxycodone-acetaminop hen 5 mg-325 mg tablet take 1 tablet by oral route every 6 hours as needed 1.00 tablet - Active Epclusa 400 mg-100 mg tablet take 1 tablet by oral route every day 1.00 tablet - Active tadalafil 20 mg tablet take 1 tablet by oral route every day 20 MG - Active Testone CIK 200 mg/mL intramuscular kit inject 0.25 milliliter by intramuscular route every week 50 MG - Active Problems Condition Type Effective Dates (start - stop) Clini kenny Status Comments No Known Problems Procedures Procedure Date Medical Records Fee Office/outpatient visit, [facility] Advance Directives Directive Yes / No Effective Date File Name No Information Encounters Encounter Description Practice Location Reason(s) For Visit Diagnoses Date Provider Providers Copied on Encounter [facility], [address], [place], [place], [id number], tel:[phone] [employer] [facility] No Information 1 Glory Connors. [address], [place], [place], [address] , . tel: [phone] Referring Provider: Referred Self. Office/outpat ient visit, [facility], [address], [place], [place], [address], tel:[phone] [employer] [facility] Freeform HPI (chief complaint) Hx TIA/stroke w/o residHistory of chest pain at restBorderline hypertension 0 Glory Connors. [address], [place], [place], [address] , [place]. tel: [phone] Referring Provider: Referred Self. [facility], [address], [place], [address], tel:[phone] [facility] No Information 0 Glory Connors. [address], [place], [address] , . tel: [phone] Family History Family Member Type Diagnosis Age At Onset Mother Problem cardiac stent Payers Payer name Insurance type Covered libertarian ID Authoriza tion(s) No Information Social History Type Description Quantity Date Captured Comments Sex Male Smoking Status No Information Chief Complaint And Reason For Visit No Information Reason For Referral Reason For Referral No Information History Of Present Illness Encounter Date Complaint History Of Prese nt Illness Freeform HPI 54-year-old man who is kindly referred by Dr. Marisel Eckert.He had been seen in the hospital, or admitted to the hospital in January 2020 with an episode of left face numbness and left arm sensations. He was evaluated for TIA stroke and included*CT brain without contrast, normal*MR brain with and without contrast, normal*CTA brain and neck normal*TTE echocardiogram, normal no evidence of interatrial septal abnormality but no bubble study*Total cholesterol about 161 with an HDL of 42, LDL 91, triglycerides less than 150*ECG within the range of normalHe has a history of reactive airways disease using an inhaler albuterol. He has history of chronic pain and list oxycodone acetaminophen is regular medicineThere is a history of low testosterone where he uses a testosterone IM injection 0.25 mL of a 200 mg/mL solution, so 50 mg weekly intramuscular. He also uses tadalafil 20 mg daily.He had been admitted to the hospital with a syndrome of left face numbness as stated above. In the end the diagnosis was of a TIA. 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 He also continues to smoke about 1 pack/dayHe has been on aspirin since he has been homeHe has not been on cholesterol altering medicineHe said he has good exercise ability could easily walk across a parking lot without difficulty or use steps. He does however use an inhaler. Functional Status Date Functional Assessmen t No Information Instructions Date Instruction Additional Infor mation No Information Assessments Type Assessment Date No Information Patient Care Teams Name Effective Dates (start - stop) Status Members No Information
--- OUTSIDE RECORDS SUMMARY | 2022-05-30 19:00 | XMS_ITS | Continuity of Care Document ---
Author Organization [facility] Address [address] [place] [address] Phone Care Team Providers Care Delivery Department Supervisor Name Role Phone Carmelo Hale MD Unavailable [...] Procedures Procedure Date CONFERENCE With [employer] Chief Creative Officer 2022 Deposition In House Deposition In House CONFERENCE With Atty [employer] Chief Creative Officer 2022 Copies Medical Records/Xrays Postop followup visit [...] Diagnoses Date Provider Providers Copied on Encounter [facility], [address], [place], [place], [address], tel:[phone] Miscellaneou s-Legal No Information 3 Geoffrey Rhodes. [address] [facility], [facility] [address], [place], [address], [place]. tel:[phone] Referring Provider: Carmelo Hale MD, [address] [facility] [address], [place], [address]. tel:[phone] [facility], [address], [place], [place], [address], tel:[phone] Miscellaneou s-Legal No Information 3 Geoffrey Rhodes. [address] [facility], [facility] [address], [place], [place], [address], . tel:[phone] Referring Provider: Carmelo Hale MD, [address] [facility] [address], [place], [address]. tel:[phone] [facility], [address], [place], [place], [address], tel:[phone] Miscellaneou s-Legal No Information 3 Debra Montilla. [address]50 [facility], [address], [address], . tel:[phone] Referring Provider: Roldan Richardson MD, [address] [place], [address]. tel:[phone] [facility], [address], [place], [place], [address], tel:[phone] Thao s-Legal No Information 3 Debra VANG Roldan. [address] [facility], [address], [place], [address], . tel:[phone] Referring Provider: Roldan Richardson MD, [address] [facility] [address], [place], [address]. tel:[phone] [facility], [address], [place], [address], tel:[phone] Thao s-Medical Records No Information 2 Debra VANG [facility]. [address] [facility], [facility] [address], [place], [address], . tel:[phone] Referring Provider: Roldan Richardson MD, [address] [facility] [address], [place], [address]. tel:[phone] [facility], [address], [place], [place], [address], tel:[phone] [facility] 400 lumbar spine (chief complaint) Lumbar radiculopathy 2 Cristiano Mai. [address] [facility], [address], [place], [address], . tel:[phone] Referring Provider: Carmelo Hale MD, [address] [facility] [address], [place], [address]. tel:[phone] Office/outpa tient visit,est, [facility], [address], [place], [place], [address], tel:[phone] [facility] 204 lumbar spine (chief complaint) Facet arthritis of lumbar regionLumbar post-laminect maciel syndromeEncou nter for therapeutic drug level monitoringLon g term (current) use of opiate analgesic 2 Khris Wharton. [address], [address], [place], [place], [address], [place]. tel:[phone] Referring Provider: Dio Pinedo MD, [address], [place], [address]. tel:[phone] [facility], [address], [place], [place], [address], [place] tel:[phone] [facility] No Information 2 Geoffrey Rhodes. [address], [address], [place], [place], [address], [place]. tel:[phone] Referring Provider: Carmelo Hale MD, [address], [place], [address]. tel:[phone] Office/outpa tient visit,[facility], [address], [place], [place], [address], [place] tel:[phone] [facility] [address] lumbar spine (chief complaint) Facet arthritis of lumbar regionLumbar post-laminect maciel syndromeLong term (current) use of opiate analgesicEnco unter for therapeutic drug level monitoring 2 Khris Wharton. [address], [address], [place], [place], [address], [place]. tel:[phone] Referring Provider: Dio Pinedo MD, [address], [place], [address]. tel:[phone] Office/outpa tient visit,[facility], [address], [place], [place], [address], [place] tel:[phone] [facility] [address] lumbar spine (chief complaint) Spinal stenosis, lumbar region with neurogenic claudicationL umbar radiculopathy Hx MRSA infection 2 Cristiano Mai. [address] [address], [address], [place], [place], [address], . tel:[phone] Referring Provider: Carmelo Hale MD, [address] [facility] [address], [place], [address]. tel:[phone] Office/outpa tient visit,est, [facility], [address], [place], [place], [address], tel:[phone] [facility] 400 lumbar spine (chief complaint) Lumbar post-laminect maciel syndromeNeura l foraminal stenosis of lumbosacral spineSpinal stenosis, lumbar region with neurogenic claudicationN eural foraminal stenosis of lumbar spine 2 Geoffrey Rhodes. [address] [facility], [address], [place], [place], [address], . tel:[phone] Referring Provider: Carmelo Hale MD, [address] [facility] [address], [place], [address]. tel:[phone] [facility], [address], [place], [place], [address], tel:[phone] [facility] [place] [facility]-Medical Records No Information 2 Debra Montilla. [address] [facility], [facility] [address], [place], [address], . tel:[phone] Referring Provider: Roldan Richardson MD, [address] [facility] [address], [place], [address]. tel:[phone] [facility], [address], [place], [place], [address], tel:[phone] [facility] 204 lumbar spine pain (chief complaint) Facet arthritis of lumbar regionLong term (current) use of opiate analgesicLumb ar post-laminect maciel syndrome 2 Khris Wharton. [address], [address], [place], [place], [address], [place]. tel:[phone] Referring Provider: Dio Pinedo MD, [address], [place], [address]. tel:[phone] Office/outpa tient visit,[facility], [address], [place], [place], [address], [place] tel:[phone] [place] [phone] lumbar spine (chief complaint) Lumbar post-laminect maciel syndromeNeura l foraminal stenosis of lumbosacral spineSpinal stenosis, lumbar region with neurogenic claudicationN eural foraminal stenosis of lumbar spine 2 Geoffrey Rhodes. [address], [address], [place], [place], [address], [place]. tel:[phone] Referring Provider: Carmelo Hale MD, [address], [place], [address]. [phone] Office/outpa tient visit,[facility], [address], [place], [place], [address], [place] tel:[phone] [place] [address] lumbar spine (chief complaint) correction (current) use of opiate analgesicEnco unter for therapeutic drug level monitoringFac et arthritis of lumbar region Apr-0 2 Amparo Silva. [address], [address], [place], [place], [address], [place]. tel:[phone] Referring Provider: Shria Donohue, [address], [place], [address]. tel:[phone] Office/outpa tient visit,[facility], [address], [place], [place], [address], [place] tel:[phone] [facility] 204 lumbar spine (chief complaint) correction (current) use of opiate analgesicFace t arthritis of lumbar regionSpinal stenosis, lumbar region with neurogenic claudication 2 Amparo Silva. [address], [address], [place], [place], [address], [place]. tel:[phone] Referring Provider: Shira Donohue, [address], [place], [address]. tel:[phone] [facility], [address], [place], [place], [address], [place] tel:[phone] [facility] 400 lumbar spine (chief complaint) Lumbar radiculopathy 1 Candido Oh. [address], [address], [place], [place], [address], [place]. tel:[phone] Referring Provider: Carmelo Hale MD, [address], [place], [address]. tel:[phone] [facility], [address], [place], [place], [address], [place] tel:[phone] [facility] [place] s-Medical Records No Information 1 Geoffrey Rhodes. [address], [address], [place], [place], [address], [place]. tel:[phone] Referring Provider: Carmelo Hale MD, [address], [place], [address]. tel:[phone] [facility], [address], [place], [place], [address], [place] tel:[phone] [place] [address] No Information 1 Rogelio Cortez. [address], [address], [place], [address], [place]. tel:[phone] Referring Provider: Carmelo Hale MD, [address], [place], [address]. tel:[phone] [facility], [address], [place], [place], [address], [place] tel:[phone] [facility] No Information 1 Geoffrey Rhodes. [address], [address], [place], [place], [address], [place]. tel:[phone] Referring Provider: Carmelo Hale MD, [address], [place], [address]. tel:[phone] [facility], [address], [place], [address], [place] tel:[phone] [facility] [place] s-Medical Records No Information 1 Geoffrey Rhodes. [address], [address], [place], [place], [address], [place]. tel:[phone] Referring Provider: Carmelo Hale MD, [address], [place], [address]. tel:[phone] Office/outpa tient visit,est, high [facility], [address], [place], [place], [address], [place] tel:[phone] [facility] 400 lumbar spine (chief complaint) Lumbar post-laminect maciel syndromeNeura l foraminal stenosis of lumbosacral spineSpinal stenosis, lumbar region with neurogenic claudicationN eural foraminal stenosis of lumbar spineFoot drop, left foot 1 Geoffrey Rhodes. [address], [address], [place], [place], [address], [place]. tel:[phone] Referring Provider: Carmelo Hale MD, [address], [place], [address]. tel:[phone] [facility], [address], [place], [place], [address], [place] tel:[phone] [address] Foot drop, left foot Oct- 1 Geoffrey Rhodes. [address], [address], [place], [place], [address], [place]. tel:[phone] Referring Provider: Carmelo Hale MD, [address], [place], [address]. tel:[phone] Office/outpa tient visit,[facility], high [facility], [address], [place], [place], [address], [place] tel:[phone] [facility] 400 lumbar spine (chief complaint) Lumbar post-laminect maciel syndromeNeura l foraminal stenosis of lumbosacral spineSpinal stenosis, lumbar region with neurogenic claudicationF oot drop, left footNeural foraminal stenosis of lumbar spine Sep-2 1 Geoffrey Rhodes. [address], [address], [place], [place], [address], [place]. tel:[phone] Referring Provider: Carmelo Hale MD, [address], [place], [address]. tel:[phone] [facility], [address], [place], [place], [address], tel:[phone] [facility] [address] Postlaminecto my syndrome, not elsewhere classifiedOth symptoms and signs involving the musculoskelet al systemFoot drop, left foot Sep-2 1 Lashae Milton. [address], [address], [place], [place], [address], [place]. tel:[phone] Referring Provider: Carmelo Hale MD, [address], [place], [address]. tel:[phone] [facility], [address], [place], [place], [address], tel:[phone] [facility] [address] Weakness of left lower extremityLeft foot dropPostlamin ectomy syndrome, not elsewhere classified Sep-1 1 Lashae JEANINE Yoan. [address], [address], [place], [place], [address], [place]. tel:[phone] Referring Provider: Carmelo Hale MD, [address], [place], [address]. tel:[phone] [facility], [address], [place], [place], [address], tel:[phone] [facility] [place] s-Medical Records No Information 1 Geoffrey Rhodes. [address], [address], [place], [place], [address], [place]. tel:[phone] Referring Provider: Carmelo Hale MD, [address] [facility] [address], [place], [address]. tel:[phone] [facility], [address], [place], [place], [address], tel:[phone] [facility] [address] Lumbar post-laminect maciel syndrome 1 Alla Juarez. [address] [facility], [address], [place], [place], [address], . tel:[phone] Referring Provider: Roldan Richardson MD, [address] [facility] [address], [place], [address]. tel:[phone] Office/outpa tient visit,[facility], [facility], [address], [place], [place], [address], [place] tel:[phone] [facility] [address] lumbar spine (chief complaint) Lumbar post-laminect maciel syndromeLumba r radiculopathy Neural foraminal stenosis of lumbar spineNeural foraminal stenosis of lumbosacral spineSpinal stenosis, lumbar region with neurogenic claudication 1 Geoffrey Rhodes. [address], [address], [place], [place], [address], [place]. tel:[phone] Referring Provider: Roldan Richardson MD, [address] [facility] [address], [place], [address]. tel:[phone] [facility], [address], [place], [place], [address], tel:[phone] [facility]-Medical Records No Information 1 Geoffrey Rhodes. [address] [facility], [address], [place], [place], [address], [place]. tel:[phone] Referring Provider: Carmelo Hale MD, [address] [facility] [address], [place], [address]. tel:[phone] Office/outpa tient visit,[facility], [facility], [address], [place], [place], [address], tel:[phone] [facility] 400 lumbar spine (chief complaint) Lumbar post-laminect maciel syndrome 1 Debra Montilla. [address] [facility], [address], [place], [place], [address], . tel:[phone] Referring Provider: Roldan Richardson MD, [address] [facility] [address], [place], [address]. [phone] [facility], [address], [place], [place], [address], [place] tel:[phone] [facility] 204 Facet arthritis of lumbar region 1 Khris Wharton. [address] [facility], [address], [place], [place], [address], [place]. tel:[phone] Referring Provider: Gisselle GARCIA, [address] [facility] [address], [place], [address]. tel:[phone] Office/outpa tient visit,[facility], [address], [place], [place], [address], [place] tel:[phone] [facility] [address] lumbar spine (chief complaint) Postlaminecto my syndromeLong term (current) use of opiate analgesic Jun- 9- 1 Jagjit Pitts. [address], [address], [place], [place], [address], . tel:[phone] Referring Provider: Gisselle GARCIA, [address] [facility] [address], [place], [address]. tel:[phone] [facility], [address], [place], [place], [address], [place] tel:[phone] [facility] [address] Lumbar post-laminect maciel syndrome Jun- 0- 1 Debra VANG [facility]. [address] [facility], [address], [place], [place], [address], . tel:[phone] Referring Provider: Roldan Richardson MD, [address] [facility] [address], [place], [address]. tel:[phone] Office/outpa tient visit,[facility], high [facility], [address], [place], [place], [address], tel:[phone] [facility] 201 lumbar spine (chief complaint) Lumbar post-laminect maciel syndrome Jun-0 - 1 Debra VANG [facility]. [address] [facility], [address], [place], [place], [address], . tel:[phone] Referring Provider: Roldan Richardson MD, [address] [facility] [address], [place], [address]. tel:[phone] [facility], [address], [place], [place], [address], tel:[phone] [facility]-Medical Records No Information - 0 Khris Wharton. [address] [facility], [address], [place], [place], [address], [place]. tel:[phone] Referring Provider: Dio Pinedo MD, [address], [place], [address]. tel:[phone] Office/outpa tient visit,[facility], [address], [place], [place], [address], [place] tel:[phone] [facility] 204 lumbar spine (chief complaint) Postlaminecto my syndromeLong term (current) use of opiate analgesic Dec- 0 Khris Wharton. [address], [address], [place], [address], [place]. tel:[phone] Referring Provider: Dio Pinedo MD, [address], [place], [address]. tel:[phone] Office/outpa tient visit,[facility], [address], [place], [place], [address], [place] tel:[phone] [facility] 204 lumbar spine (chief complaint) Body mass index (BMI) 28.0-28.9, adultPostlami nectomy syndromeLong term (current) use of opiate analgesicPain management contract agreement 0 Khris Wharton. [address], [address], [place], [place], [address], [place]. tel:[phone] Office/outpa tient visit,[facility], [address], [place], [place], [address], [place] tel:[phone] [facility] 204 lumbar spine (chief complaint) Body mass index (BMI) 28.0-28.9, adultLumbar post-laminect maciel syndrome Oct- 0 Yanelis Duke. [address], [place], [place], [address], [place]. tel:[phone] Referring Provider: Srikanth Hilario MD, [address], [place], [address]. tel:[phone] [facility], [address], [place], [place], [address], [place] tel:[phone] [facility] No Information 0 Yanelis Duke. [address], [place], [place], [address], [place]. tel:[phone] Referring Provider: Srikanth Hilario MD, [address], [place], [address]. tel:[phone] [facility], [address], [place], [place], [address], [place] tel:[phone] [facility] Records Lumbar radiculopathy 0 Yanelis Duke. [address], [place], [place], [address], [place]. tel:[phone] Referring Provider: Srikanth Hilario MD, [address], [place], [address]. tel:[phone] Office/outpa tient visit,est, [facility], [address], [place], [place], [address], [place] tel:[phone] [facility] lumbar spine pain (chief complaint) Body mass index (BMI) 28.0-28.9, adultLumbar post-laminect maciel syndrome 0 Yanelis Duke. [address], [place], [place], [address], [place]. tel:[phone] Referring Provider: Srikanth Hilario MD, [address], [place], [address]. tel:[phone] [facility], [address], [address], [place] tel:[phone] [facility] No Information 0 Yanelis Duke. [address], [place], [place], [address], [place]. tel:[phone] Referring Provider: Srikanth Hilario MD, [address], [place], [address]. tel:[phone] [facility], [address], [place], [place], [address], tel:[phone] [facility] Information 0 Yanelis Duke. [address], [address], [place]. tel:[phone] Referring Provider: Srikanth Hilario MD, [address], [place], [address]. tel:[phone] [facility], [address], [address], tel:[phone] [facility] No Information 0 Yanelis Duke. [address], [address], [place]. tel:[phone] Referring Provider: Srikanth Hilario MD, [address], [place], [address]. tel:[phone] Office/outpa tient visit,est, mod [facility], [address], [address], tel:[phone] [facility] [address] lumbar spine pain (chief complaint) Lumbar post-laminect maciel syndromeBody mass index (BMI) 28.0-28.9, adult 0 Yanelis Duke. [address], [place], [place], [address], [place]. tel:[phone] Referring Provider: Srikanth Hilario MD, [address], [place], [address]. tel:[phone] [facility], [address], [place], [place], [address], tel:[phone] [facility] [address] Lumbar post-laminect maciel syndrome 0 Yanelis Duke. [address], [place], [place], [address], [place]. tel:[phone] Referring Provider: Srikanth Hilario MD, [address], [place], [address]. tel:[phone] Office/outpa tient visit,est, mod [facility], [address], [place], [place], [address], [place] tel:[phone] [facility] lumbar spine pain (chief complaint) Body mass index (BMI) 26.0-26.9, adultLumbar post-laminect maciel syndrome Apr-2 0 Yanelis Duke. [address], [place], [place], [address], [place]. tel:[phone] Referring Provider: Srikanth Hilario MD, [address], [place], [address]. tel:[phone] [facility], [address], [place], [place], [address], [place] tel:[phone] [facility] [address] lumbar spine (chief complaint) Lumbar post-laminect maciel syndromeBody mass index (BMI) 26.0-26.9, adult Apr-2 0 Debra Montilla. [address] [facility], [facility], [place], [place], [id number], [place]. tel:[phone] Referring Provider: Roldan Richardson MD, [address] [facility] [address] [place] [address], [address]. tel:[phone] [facility], [address], [place], [place], [id number], [place] tel:[phone] [facility] [place] s-Medical Records No Information Jul-2 0 Debra Montilla. [address] [facility], [address], [place], [place], [address], [place]. tel:[phone] Referring Provider: Roldan Richardson MD, [address] [facility] [address], [place], [address]. tel:[phone] [facility], [address], [place], [place], [address], [place] tel:[phone] [facility] No Information Jul-0 0 Debra Montilla. [address] [facility], [address], [place], [place], [address], [place]. tel:[phone] Referring Provider: Roldan Richardson MD, [address] [facility] [address], [place], [address]. tel:[phone] Office/outpa tient visit,[facility], [facility], [address], [place], [place], [address], [place] tel:[phone] [facility] 204 lumbar spine pain (chief complaint) Body mass index (BMI) 26.0-26.9, adultLumbar post-laminect maciel syndrome Apr-0 0 Yanelis Duke. [address], [place], [place], [address], [place]. tel:[phone] Referring Provider: Srikanth Hilario MD, [address], [place], [address]. tel:[phone] [facility], [address], [place], [place], [address], [place] tel:[phone] [facility] 400 lumbar spine (chief complaint) Facet arthritis of lumbar regionLumbar post-laminect maciel syndromeBody mass index (BMI) 26.0-26.9, adult Mar-3 0 Debra Montilla. [address] [facility], [address], [place], [place], [address], [place]. tel:[phone] Referring Provider: Roldan Richardson MD, [address] [facility] [address], [place], [address]. tel:[phone] Office/outpa tient visit,est, high [facility], [address], [place], [place], [address], [place] tel:[phone] [facility] 204 lumbar spine pain (chief complaint) Body mass index (BMI) 26.0-26.9, adultLumbar post-laminect maciel syndrome Jun-06 02- 0 Yanelis Duke. [address], [place], [place], [address], [place]. tel:[phone] Referring Provider: Srikanth Hilario MD, [address], [place], [address]. tel:[phone] [facility], [address], [place], [place], [address], [place] tel:[phone] [facility] 400 lumbar spine (chief complaint) Lumbar post-laminect maciel syndromeLumba r radiculopathy Jun- 0-202 0 Laverne Morgan. [address] [facility], [address], [place], [place], [address], [place]. tel:[phone] Referring Provider: Eddie Donohue, [address] [facility] [address], [place], [address]. tel:[phone] [facility], [address], [place], [place], [address], [place] tel:[phone] [facility] 400 lumbar spine (chief complaint) Body mass index (BMI) 26.0-26.9, adultLumbar post-laminect maciel syndromeFacet arthritis of lumbar region Jun- 0 Debra Montilla. [address] [facility], [address], [place], [place], [address], [place]. tel:[phone] Referring Provider: Roldan Richardson MD, [address] [facility] [address], [place], [address]. tel:[phone] [facility], [address], [place], [place], [address], [place] tel:[phone] [facility] [place] s-Medical Records No Information - 0 Yanelis Duke. [address], [place], [place], [address], [place]. tel:[phone] Referring Provider: Srikanth Hilario MD, [address], [place], [address]. tel:[phone] [facility], [address], [place], [place], [address], [place] tel:[phone] [facility] In Pt No Information Jun-0 0 Debra Montilla. [address] [facility], [address], [place], [place], [address], [place]. tel:[phone] Referring Provider: Aliyah Morrison DO [facility], [address] , [place], [address]. tel:[phone] [facility], [address], [place], [place], [address], [place] tel:[phone] [facility] 400 Lumbar post-laminect maciel syndrome Mar-0 0 Suzanne Otero. [address] [facility], [address], [place], [place], [address], [place]. tel:[phone] [facility], [address], [place], [place], [address], [place] tel:[phone] [facility] 204 No Information Mar-0 0 Yanelis Duke. [address], [place], [place], [address], [place]. tel:[phone] Office/outpa tient visit,[facility], [facility], [address], [place], [place], [address], [place] tel:[phone] [facility] 204 lumbar spine (chief complaint) Body mass index (BMI) 26.0-26.9, adultLumbar post-laminect maciel syndromeLong term (current) use of opiate analgesicEnco unter for therapeutic drug level monitoring 0 Yanelis Duke. [address], [place], [place], [address], . tel:[phone] Referring Provider: Srikanth Hilario MD, [address], [place], [address]. [phone] [facility], [address], [place], [place], [address], [place] tel:[phone] [facility] 400 lumbar spine (chief complaint) Body mass index (BMI) 26.0-26.9, adultLumbar post-laminect maciel syndromeFacet arthritis of lumbar region May- 0 Debra Fernandezuj. [address] [address], [place], [place], [address], . tel:[phone] Referring Provider: Roldan Richardson MD, [address] [address], [place], [address]. tel:[phone] [facility], [address], [place], [place], [address], tel:[phone] [facility] 400 lumbar spine (chief complaint) Lumbar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
[2024-11-14 11:52] VITALS: BP 146/90; PULSE 86; RESP 14; TEMP 36.3; O2SAT 96; BMI 25.8
--- OUTSIDE RECORDS SUMMARY | 2024-11-14 11:57 | XMS_ITS | Patient Health Record ---
Author Organization [facility] Address [address] [place] [address] Care Team Providers Care Metal Bumper Name Role Phone Srikanth Hilario Primary Care Provider Allergies No Known Allergies Reason For Referral No Information Medications Medication SIG (Take, Route, Frequency, Duration) Notes Start Date End Date Status Sulfamethoxazole-T rimethoprim 800-160 MG Tablet TAKE 1 TABLET BY MOUTH TWICE DAILY Oral; Duration: 7 Active Morphine Sulfate ER 15 MG Tablet Extended Release 1 tablet Orally every 12 hrs 01/18/2022 Active Cephalexin 500 MG Capsule TAKE 1 CAPSULE BY MOUTH THREE TIMES DAILY Oral; Duration: 2 Active Narcan 4 MG/0.1ML Liquid as directed Nasally 01/18/2022 Active Lunesta 1 MG Tablet 1 tablet immediately before bedtime as needed Orally Once a day; Duration: 30 days 01/18/2022 Active Percocet 10-325 MG Tablet 1 tablet as needed Orally every 6 hrs 01/18/2022 Active meclizine hydrochloride 25 MG Oral Tablet *please review for potential _update for e-prescription and drug interaction check* meclizine hydrochloride 25 MG Oral TabletOriginal Medicationmeclizine hydrochloride 25 MG Oral Tablet 02/15/2020 Active 1 ML testosterone cypionate 200 MG/ML Injection *please review for potential _update for e-prescription and drug interaction check* 1 ML testosterone cypionate 200 MG/ML InjectionOriginal Medication1 ML testosterone cypionate 200 MG/ML Injection 02/15/2020 Active Tadalafil 20 MG Tablet Oral tadalafil 20 MG Oral TabletOriginal Medicationtadalafil 20 MG Oral Tablet 02/15/2020 Active pregabalin 50 MG Oral Capsule *please review for potential _update for e-prescription and drug interaction check* pregabalin 50 MG Oral CapsuleOriginal Medicationpregabalin 50 MG Oral Capsule 02/15/2020 Active Amitriptyline HCl 50 MG Tablet 1-2 tablet at bedtime as needed Orally Once a day; Duration: 30 day(s) 12/19/2021 Active Viagra 100 MG Tablet Oral sildenafil 100 MG Oral TabletOriginal Medicationsildenafil 100 MG Oral Tablet 02/15/2020 Active Social History Tobacco Use: Social History Observation Description Date Details (start date - stop date) Current Smoker NA - NA Sex Assigned At : Social History Observation Description Sex Assigned At Male Social History Tobacco Use: Social Info Question Answer Notes Tobacco Use/Smoking Tobacco use: current smoker Additional Details Category Social Info Options Details Drugs/Alcohol: Do you drink alcohol? Yes Problems Problem Type SNOMED Code ICD Code Onset Dates Problem Status W/U Status Risk Notes Problem Testicular hypofunction (186660802) Testicular hypofunction (E29.1) Active confirmed Problem Chronic pain (12031315) Other chronic pain (G89.29) Active confirmed Problem Tobacco user (343221464) Cigarette nicotine dependence without complication (F17.210) Active confirmed Problem Post-laminectomy syndrome (76758517) Postlaminectomy syndrome, not elsewhere classified (M96.1) 02/15/20 Active confirmed Problem Acute bilateral low back pain without sciatica (M54.50) 02/15/20 Active confirmed Plan Of Treatment No Information Insurance Providers Payer Name Payer Address Payer Phone Subscriber Number Group Number Insured Name Patient Relationship to Insured Coverage Start Date Coverage End Date Medicare Part B [facility] [address] [address] TREMAINEMARIANNA MCDANIELS [id number] [phone] [id number] MAYDA WEINBERG Self - patient is the insured Medical (General) History Surgical History Surgery Date(Month/Year) x5 back
--- OUTSIDE RECORDS SUMMARY | 2024-11-14 11:57 | XMS_ITS | Patient Health Record ---
Author Organization [facility] Address [address] [place], [place] [address] Care Team Providers Care Survey Research Analyst Name Role Phone Kalli VANG, Yuki Primary Care Provider Audrey Bunn MD, Gatito Unavailable [phone] Ward FISHER DIVINGFaye Unavailable [phone] Allergies No Known Allergies Results Component Value Reference Range Notes Urine tox screen / MS if ind icated Reviewed date:07/30/2024 07:00:17 AM Interpretation:Negative for THC Performing Lab: Notes/Report: Negative for THC Urine tox screen / MS if ind icated Reviewed date:07/30/2024 07:00:17 AM Interpretation:Negative for THC Performing Lab: Notes/Report: Negative for THC Urine tox screen / MS if ind icated Reviewed date:07/06/2024 03:56:29 PM Interpretation:Reported THC Performing Lab: Notes/Report: Reported THC Reason For Referral Reason History of back pain greater than three months duration; History of back pain Diagnosis 1 Dorsalgia, unspecifi ed (M54.9) Diagnosis 2 Other chronic pain ( G89.29) Diagnosis 3 Other specified post procedural states (Z98.890) Referring Provider First Name Yuki Referring Provider Last Name Kalli Referring Provider Speciality Family Med icine Referred Organization [facility] Referred Provider Gatito Bunn Referred Address [address] [place], [id number], Referred Provider Specialty Pain Managem ent General Notes Vale Morales 01/2025 10:40:56 AM >Sent for insurance verification. Need SSN also., Emi Balderrama 06/08/2024 10:49:04 AM >ACTIVE. $30.00 COPAY. Sj Moraleselle 06/10/2024 04:06:05 PM >Mailbox is full and cannot accept messages. Will mail letter tomorrow if patient does not respond to missed call., Andrew Vale 06/11/2024 08:59:26 AM >Mailed letter. Referral Priority Routine Reason Sleep Study (21386)/ CPAP Titration Study (86163) as appropriate Diagnosis 1 Hypersomnia, unspeci fied (G47.10) Referral Organization [facility] Referring Provider First Name Gatito Referring Provider Last Name Sepideh Referring Provider Speciality Pain Manag ement Referred Provider Lab, Sleep General Notes CPT code 95641 appro abe at [facility]; Authorization number, [employer] - [id number]; Dates of service, 07/17/2024 - 09/15/2024, Sara Son 07/20/2024 11:01:48 AM > referral faxed, Sara Son 07/27/2024 03:05:26 PM > spoke with Dianne at [facility] Sleep Lab - patient is scheduled as above Referral Priority Routine Referral Appointment Date 08/17/2024 Medications Medication SIG (Take, Route, Frequency, Duration) Notes Start Date End Date Status citalopram 20 mg 1 tab(s) orally once a day Active oxyCODONE 10 mg 1 tab orally Q4-6H p rn pain (max 3/day; hold within 4H of planned sleep) for 28 days ICD-10: G89.29 08/26/2024 Active glimepiride 1 mg 1 tab(s) orally once a day Active oxyCODONE 10 mg 1 tab orally Q4-6H p rn pain (max 3/day; hold within 4H of planned sleep) for 28 days Do not fill prior to 10/21/24. ICD-10: G89.29 08/26/2024 Active metFORMIN 500 mg 1 tab(s) orally 2 ti mes a day Active sotalol 80 mg 1 tab(s) orally 2 ti mes a day Active oxyCODONE 10 mg 1 tab orally Q4-6H p rn pain (max 3/day; hold within 4H of planned sleep) for 28 days Do not fill prior to 09/23/24. ICD-10: G89.29 08/26/2024 Active Social History Tobacco Use: Social History Observation Description Date Details (start date - stop date) Current Smoker NA - NA Tobacco use: Question Answer Notes : current smoker Are you interested in quitting? Ready to quit How many cigarettes a day do you smoke? 6-10 How often do you smoke cigarettes? every day How soon after you wake up do you smoke your fir st cigarette? within 5 min When did you start smoking? 1984 AUDIT-C (Standard) Question Answer Notes Did you have a drink contain ing alcohol in the past year? Yes How often did you have a dri nk containing alcohol in the past year? 2 to 3 times a week (3 points) How many drinks did you have on a typical day when you were drinking in the past year? 3 or 4 drinks (1 point) How often did you have six o r more drinks on one occasion in the past year? 2 to 4 times a month (2 points) Points 6 Interpretation Positive Problems Problem Type SNOMED Code ICD Code Onset Dates Problem Status W/U Status Risk Notes Problem Solitary sacroiliitis (358151529) Sacroiliitis, not elsewhere classified (M46.1) Active confirmed Problem High risk drug monitoring status (753565231) half-way (current) use of opiate analgesic (Z79.891) Active confirmed Problem Hypersomnia (15324622) Hypersomnia, unspecified (G47.10) Active confirmed Problem Sleep disorder (66123027) Other sleep disorders (G47.8) Active confirmed Problem Chronic pain (11006529) Other chronic pain (G89.29) Active confirmed Problem Essential hypertension (44278182) Essential (primary) hypertension (I10) Active confirmed Problem Backache (608656042) Dorsalgia, unspecified (M54.9) Active confirmed Problem Post-laminectomy syndrome (93352284) Postlaminectomy syndrome, not elsewhere classified (M96.1) Active confirmed Problem Long-term current use of drug therapy (299407922) Other intermodal dispatcher (current) drug therapy (Z79.899) Active confirmed Problem Postprocedural states (009605395) Other specified postprocedural states (Z98.890) Active confirmed Problem Vertebrogenic low back pain (8968997740319398 01) Vertebrogenic low back pain (M54.51) Active confirmed Vital Signs Temperature 97.6 degrees Fahrenheit 08/26/2024 Blood pressure diastolic 100 mm Hg 08/26/2024 Oximetry 97 % 08/26/2024 Height 70 in 08/26/2024 Blood pressure systolic 157 mm Hg 08/26/2024 Weight 184.4 lbs 08/26/2024 BMI 26.46 kg/m2 08/26/2024 Encounters Encounter Location Date Provider Diagnosis [facility] [address] [id number] 07/06/2024 Faye Ward Vertebrogenic low ba ck pain M54.51 ; Postlaminectomy syndrome, not elsewhere classified M96.1 ; Sacroiliitis, not elsewhere classified M46.1 ; Essential (primary) hypertension I10 ; Other sleep disorders G47.8 and Other intermodal dispatcher (current) drug therapy Z79.899 [facility] [address] [id number] 07/16/2024 Gatito Bunn Vertebrogenic low ba ck pain M54.51 ; Other chronic pain G89.29 ; Postlaminectomy syndrome, not elsewhere classified M96.1 ; Essential (primary) hypertension I10 ; Hypersomnia, unspecified G47.10 and Other nursing home (current) drug therapy Z79.899 [facility] [address] [id number] 08/26/2024 Gatito Bunn Vertebrogenic low ba ck pain M54.51 ; Other chronic pain G89.29 ; Essential (primary) hypertension I10 ; Hypersomnia, unspecified G47.10 and intermodal dispatcher (current) use of opiate analgesic Z79.891 Assessments Encounter Date Diagnosis (ICD Code) Assessment Notes Treatment Notes Treatment Clinical Notes Section Notes 08/26/2024 Other chronic pain (ICD-10 - G89.29) Patient reports symptom improvement with use of his pain medication; ability to complete his outdoor chores with greater ease. Plan to continue oral opioid medication at today's visit. 08/26/2024 Vertebrogenic low back pain (ICD-10 - M54.51) Chronic axial lumbosacral spine pain post prior lumbar surgeries. 07/16/2024 Other chronic pain (ICD-10 - G89.29) Patient reports history of good benefit from opioid therapy, with different medications trialed in the past as detailed, below. Patient desires to resume opioid therapy. Plan to initiate opioid medication management services via this facility at today's visit. Risks of opioid therapy discussed in great detail with patient. Conditions for opioid therapy discussed (patient compliance related discussion). 07/16/2024 Vertebrogenic low back pain (ICD-10 - M54.51) Chronic axial lumbosacral spine pain post prior laminectomy surgeries as well as post instrumentation of the lower spine (L4-S1). Patient stated that he has no desire to follow-up with his surgeon or any neurosurgeon and he does not want to have any more formal neurosurgical procedures. Patient stated that he is amenable to SCS surgery if indicated following a positive SCS trial. Almost all conservative measures trialed by patient with history of no benefit or worsening of symptoms (such as with PT). Light stretching is of minimal benefit. 07/06/2024 Postlaminectomy syndrome, not elsewhere classified (ICD-10 - M96.1) No evidence of LSP flexion / extension noted on patient's 12/10/23 x-ray report. No evidence of hardware failure noted on patient's 12/24/23 CT report. 07/06/2024 Vertebrogenic low back pain (ICD-10 - M54.51) Patient to consider treatment options pending evaluation by Dr. Bunn. 07/06/2024 Sacroiliitis, not elsewhere classified (ICD-10 - M46.1) 07/16/2024 Postlaminectomy syndrome, not elsewhere classified (ICD-10 - M96.1) No evidence of lumbar spine flexion - extension noted on patient's 12/10/23 x-ray report. No evidence of hardware failure noted on patient's 12/24/23 CT report. Verbal and written information given patient on 07/16/24 regarding SCS therapy. Patient stated intent to review the information, check out the company's website and do an internet search. Patient stated understanding to make an appointment if he desires to further discuss this interventional spine treatment option. 08/26/2024 Essential (primary) hypertension (ICD-10 - I10) Education sheet given at today's visit; patient to address with PCP. 08/26/2024 Hypersomnia, unspecified (ICD-10 - G47.10) Patient reports his sleep study is scheduled for 08/2024 and will review results with his PCP. Plan to continue to restrict opioid usage in relation to sleep for safety concerns. 07/16/2024 Essential (primary) hypertension (ICD-10 - I10) Education sheet given at today's visit; patient to address with PCP. 07/06/2024 Essential (primary) hypertension (ICD-10 - I10) Education sheet given at today's visit; patient to address with PCP. 07/06/2024 Other sleep disorders (ICD-10 - G47.8) Multiple sleep issues reported by patient on intake screening paperwork. Consider completion of a sleep study. 07/16/2024 Hypersomnia, unspecified (ICD-10 - G47.10) Multiple sleep issues reported by patient on intake screening paperwork / sleep apnea screening (see Medical History, below). Patient counseled at length on his hypersomnia and risks. Plan a sleep study. Plan to restrict opioid usage in relation to sleep for safety concerns: patient has verbalized understanding to hold short-acting opioids within four hours of planned sleep. Patient has been counseled on the risks of sleep apnea (if present), with or without opioid and / or other sedative usage, and the patient verbalized understanding and acceptance of the increased risk (sleep apnea, respiratory depression, ) with opioid (such as oxycodone, hydrocodone or morphine) and / or sedative substance (such as marijuana, alcohol, sleeping pills, benzodiazepines) usage. Patient has been counseled that synergistic risk occurs with concomitant opioid and sedative(s) usage. Patient has been counseled to hold opioid and / or sedative substances prior to planned sleep or dangerous activities and patient verbalized understanding that noncompliance would be at patient's increased risk. 08/26/2024 half-way (current) use of opiate analgesic (ICD-10 - Z79.891) Patient has a total daily MED of 45. This places the patient in the [facility] moderate risk category for total daily opioid usage. Patient has confirmed he currently has a dose of Narcan nasal spray as provided by his pharmacy. 2022 opioid (OUD) risk tool score =3. This places the patient in the high risk category. 07/16/2024 Other intermodal dispatcher (current) drug therapy (ICD-10 - Z79.899) Patient has received the Opioid Analgesic [facility] Patient Counseling Guide. Patient has had opportunity to read the Guide and ask questions pertaining to the Guide. Patient has been advised on 07/16/24 that any suspected patient misuse, abuse, or diversion of controlled substances (i.e. opioids/narcotics/ pain killers) will result in dissolution of treatment from this clinic. Patients adhering to the concepts contained within the patient's Treatment Agreement will be protected from such termination of care. Patient signed an opioid consent form on 07/16/24. Patient has been given a copy of the Treatment Agreement and Cannabis Policy; signed on 06/29/24. 2022 opioid (OUD) risk tool score =3. This places the patient in the high risk category. Plan urine toxicology screen today to obtain a base level for THC and monitor for presence of any unprescribed or illicit controlled substance(s). POCT results are positive for THC; will need to send specimen to an outside lab for definitive testing. 07/06/2024 Other nursing home (current) drug therapy (ICD-10 - Z79.899) Patient was given a copy of the Treatment Agreement and Cannabis Policy; signed on 06/29/24. 2022 opioid (OUD) risk tool score =3. This places the patient in the high risk category. Plan urine toxicology screen today in anticipation of possibly starting opioid therapy at future visit as well as to assess for any prescribed, unprescribed, and / or illicit controlled substance(s). 08/26/2024 Other The service was provided by ISABEL Eli, as part of the ongoing care plan established by Gatito Bunn MD, who was present in the office for direct supervision during the encounter. Patient was provided with a letter at today's visit informing patient that this clinic is closing due to Dr. Bunn's long term; see scanned document. Terminal prescriptions were given to the patient along with tapering instructions. 07/06/2024 Other Case reviewed a nd treatment plan approved by Dr. Bunn. 07/16/2024 Other Pateint made th e treatment decision on 07/16/24 to discontinue any marijuana (THC) use in the future as a condition for treatment with opioid therapy via this facility. Patient stated that he has not used that much THC in the past and has not really liked it or felt any real benefit from using marijuana. 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) Post laminectomy syndrome Hepatitis C (08/2023) Diabetes mellitus type 2 Neuropathy of both feet Nicotine dependence Generalized anxiety disorder and depress ion Vasovagal syncope Erectile dysfunction Nocturia COPD Atrial fibrillation Hypertension Sleep disorder, significant hypersomnia risk (patient described sleep as poor with complaints of frequent awakenings, non-refreshing sleep, restless legs, falls asleep while driving, restlessness during sleep, morning headaches, difficulty in sleeping, thrashing about, and impaired memory / intellectual function noted upon sleep apnea screening) Surgical History Surgery Date(Month/Year) Lumbar laminectomy, performed in [place], [place] by Dr. Erick Parra, 1994 Colonoscopy, performed in [place], 2018 Revision of laminectomy, per formed at [facility] in [place], [place], by Dr. Richardson, 2019 L4-5, L5-S1 fusion / fixatio n, performed at [facility] in [place], [place], 2020 Revision of fusion, performe d at [facility] in [place], [place], 2021 Placement of pacemaker, perf ormed at [facility] by Dr. Rhodes, 2023 Hospitalization History Reason Date(Month/Year) Kidney stones, treated at [facility], 2019
--- OUTSIDE RECORDS SUMMARY | 2024-11-14 11:57 | XMS_ITS | Clinical Summary ---
Author Organization [facility] Address [address] [place] [address] Phone Care Team Providers Care Tool Grinding Machine Operator Name Role Phone Unavailable Primary Care Provider Unavailabl e Encounters Date Type Department Care Team Description 10/20/2024 External Device Data [facility] ABSTRACTION Provider, Abstract 10/14/2024 External Device Data [facility] ABSTRACTION Provider, Abstract from Last 3 Months Social History Tobacco Use Types Packs/Day Years Used Date Smoking Tobacco: Never Assessed Sex and Gender Information Value Date Recorded Sex Assigned at Not on file Legal Sex Male 11:34 AM CDT Gender Identity Not on file Sexual Orientation Not on file Plan of Treatment Health Maintenance Due Date Last Done Comments DIABETES ANNUAL FOOT EXAM 09/05/1981 DIABETES ANNUAL RETINAL EXAM 09/05/1981 DIABETES MICROALBUMIN ANNUAL SCREEN 09/05/1981 LDL CHOLESTEROL ANNUAL 09/05/1981 DTAP/TDAP/TD VACCINES (1 - Tdap) 09/05/1982 COLORECTAL SCREENING 09/05/2008 Colorectal Cancer Screening 09/05/2008 FIT-DNA Q 3 years 09/05/2008 FIT/FOBT Q 1 year 09/05/2008 Flex Sig/CT Colonography Q 5 years 09/05/2008 ZOSTER VACCINE (2 of 2) 02/17/2021 12/23/2020 DIABETES HBA1C Q 6 MONTHS 03/28/2023 09/26/2022, RSV VACCINE (60+ or ) (1 - Risk 60-74 years 1-dose series) 2023 COVID-19 Vaccine (5 - 2023-2 5 season) 2023 04/16/2022, 03/29/2021, 08/13/2020, Additional history exists INFLUENZA VACCINE (#1) 2024 2, 12/23/2020, 12/21/2019, Additional history exists Medical Devices Implanted Type Area Medical Administrative Specialist Device Identifier Shelf Expiration Date Model / Serial / Lot Lead-07/24/2023 Rose [id number] Implanted:06/28 (Quantity not on file) Lead [employer] [id number] / [id number] / Lead-07/24/2023 Rose [id number] Implanted:06/28 (Quantity not on file) Lead [employer] 8TC-52 / [id number] / Pacemaker-07/23 [employer] [id number] Implanted:06/28 (Quantity not on file) Pacemaker [employer] [id number] / [id number] / Description:Dr. Thomas joseph [phone], fax [phone] [place] [address] [place] [address]
--- NOTE | 2024-11-14 12:37 | W.ED.EYEPROB ---
HPI - Eye Problem General: Chief complaint: Eye Problems Stated complaint: Eyes swollen shut Time Seen by Provider: 11/14/24 12:00 History of Present Illness: 59-year-old male presents emergency room eyes painful and swollen. He said pain swelling and disc burning in the eyes for the last 2 days become progressively worse. He is unsure of any exposure. 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 No recollection of any foreign bodies in the eye. No direct trauma to the eye. Associated symptoms: Denies fever(s) or neck pain Related Data Home Medications ?Medication ?Instructions ?Recorded ?Confirmed sotalol 80 mg tablet 80 mg PO BID 12/04/23 06/02/24 Previous Rx's ?Medication ?Instructions ?Recorded albuterol sulfate 2.5 mg/3 mL 2.5 mg (3 mL) inhalation QID #75 mL 12/04/23 (0.083 %) solution for nebulization ondansetron 4 mg disintegrating 4 mg PO Q6H PRN nausea and 01/02/24 tablet vomiting #14 tabs fluticasone propionate 50 1 spray intranasal BID #16 grams 03/25/24 mcg/actuation nasal spray,suspension (Flonase Allergy Relief) gulcometer, stips, and lancets #1 ea 03/25/24 atorvastatin 20 mg tablet (Lipitor) 20 mg PO DAILY cholesterol #90 tabs 06/02/24 cyclobenzaprine 10 mg tablet 10 mg PO .qpm #90 tabs 06/02/24 gabapentin 100 mg capsule 100 mg PO BID #60 caps 06/02/24 citalopram 20 mg tablet (Celexa) 20 mg PO DAILY #30 tabs 07/31/24 apixaban 5 mg tablet (Eliquis) 5 mg PO BID #60 tabs 09/08/24 glimepiride 1 mg tablet 1 mg PO QAM #90 tabs 10/02/24 metformin 500 mg tablet,extended 500 mg PO BID #60 tabs 10/14/24 release 24 hr hydrocodone 5 mg-acetaminophen 325 1 tab PO Q6H PRN pain #12 tabs 11/14/24 mg tablet tobramycin 0.3 %-dexamethasone 0.1 2 drp ophthalmic (eye) QID 5 days 11/14/24 % eye drops,suspension #5 mL Allergies Allergy/AdvReac Type Severity Reaction Status Date / Time No Known Allergies Allergy Verified 11/14/24 11:58 Review of Systems Const: Denies: fever(s) or chills Eyes: Reports: photophobia, eye discomfort and eye redness Card: Denies: chest pain Resp: Denies: dyspnea GI: Denies: abdominal pain : Denies: dysuria, urinary frequency or urinary urgency Musc: Denies: neck pain or back pain Skin/Breast: Denies: rash PFSH ED PFSH: Medical History 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 Chronic back pain greater than 3 months duration 5 back surgeries; has had injections; has been on opiates in past Nicotine dependence, cigarettes, with other nicotine-induced disorders LDCT 3.08.21 done--repeat one year Hx of hepatitis C treated and cleared with antiviral Generalized anxiety disorder Syncope Erectile dysfunction Diabetes mellitus Depression Nocturia COPD (chronic obstructive pulmonary disease) Atrial fibrillation Pacemaker 2023 Surgical History Hx of cardiac pacemaker placed 2023 by [facility] the [facility] Hx of colonoscopy 2019--in [place]; normal History of lumbar surgery has had 5 surgeries Family History Father Congestive heart failure (CHF) Mother Heart disease Diabetes Brother Diabetes Social History Smoking and tobacco/nicotine status: current every day tobacco/nicotine user cigarettes Packs smoked per day: 1 [ Other cigarette details: started age 12] Alcohol intake: current Alcohol type: beer Substance/Drug Use: former Date of last use: last use 40yrs ago Former substance use details: 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 Household members: spouse Marital status: Number of children: 2 Highest education level completed: GED or Equivalent Current occupational status: disabled 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; 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 Resp: COMMON NORMALS: normal respiratory effort and No retractions Neuro: SENSORIUM/ORIENTATION: Yes oriented to person, Yes oriented to place and Yes oriented to time Skin: COMMON NORMALS: no rashes or lesions noted GENERAL SKIN EXAM: no rashes or lesions noted Course Vital Signs: Vital signs: Vital Signs Temperature 97.4 F L 11/14/24 11:52 Pulse Rate 86 11/14/24 11:52 Respiratory Rate 17 11/14/24 12:44 Blood Pressure 146/90 11/14/24 11:52 Pulse Oximetry 98 11/14/24 12:44 Oxygen Delivery Me thod Room Air 11/14/24 11:52 MDM - Eye Problem Medical Decision Making Patient has moderate iritis. Improved significantly after application of Cyclogyl to the eyes. Discussed with Dr. Gatito Lopez on-call for ophthalmology he agrees with course and plan. Will put the patient on TobraDex eyedrops and have him follow-up in the ophthalmology clinic Saturday morning at 9 AM. Discussed with the patient. He had significant improvement in his symptoms once he had his eyes dilated. No radiology studies performed this visit Discharge Plan Discharge Patient Disposition: Home Clinical Impression: Iritis Condition: Stable Prescriptions: New tobramycin-dexamethasone 0.3-0.1 % drops,suspension 2 drp ophthalmic (eye) QID 5 Days Qty: 5 0RF hydrocodone-acetaminophen 5-325 mg tablet 1 tab PO Q6H PRN (Reason: pain) Qty: 12 0RF No Action sotalol 80 mg tablet 80 mg PO BID albuterol sulfate 2.5 mg /3 mL (0.083 %) solution for nebulization 2.5 mg inhalation QID Qty: 75 0RF gabapentin 100 mg capsule 100 mg PO BID Qty: 60 2RF atorvastatin [Lipitor] 20 mg tablet 20 mg PO DAILY Qty: 90 1RF cyclobenzaprine 10 mg tablet 10 mg PO .qpm Qty: 90 1RF (DME) gulcometer, stips, and lancets See Rx Instructions .Route .MEDSUPPLY Qty: 1 0RF Rx Instructions: As directed fluticasone propionate [Flonase Allergy Relief] 50 mcg/actuation spray,suspension 1 spray intranasal BID Qty: 16 2RF Rx Instructions: administer into each nostril citalopram [Celexa] 20 mg tablet 20 mg PO DAILY Qty: 30 2RF Eliquis 5 mg tablet 5 mg PO BID Qty: 60 2RF glimepiride 1 mg tablet 1 mg PO QAM Qty: 90 0RF Rx Instructions: administer with breakfast metformin 500 mg tablet extended release 24 hr 500 mg PO BID Qty: 60 2RF ondansetron 4 mg tablet,disintegrating 4 mg PO Q6H PRN (Reason: nausea and vomiting) Qty: 14 0RF Discharge Orders: Discharge ED (Routine); Ordered 11/14/24 Ordered By: Flavio Skinner Referrals: Gatito Lopez [Physician, Opthalmology] Referral Note: 9 AM October 17, 2024 Yuki Mahan MD [Primary Care Provider, [facility]] Discharge Diet: Usual diet Discharge Activity: Limit activity as instructed Patient Instructions: Iritis (ED), Opioid Safety, Pain Management, Patient Portal & Dena Instructions Activity Restrictions/Additional Instructions: Thank you for choosing [facility] for your healthcare needs today. It is very important that you follow up as instructed or that you return to the Emergency Department should you have concerns or if your condition changes or worsens in any way. You are seen in the emergency room with pain in your eyes. On exam there is no sign of any foreign bodies or corneal scratches appears to be you have developed an iritis. We dilated the eyes you will have very poor depth perception and blurry vision for the next approximately 24 to 36 hours. Recommend you also use TobraDex eyedrops 2 drops 4 times a day and follow-up with Dr. Lopez in the ophthalmology clinic in 2 days at 9 AM on October 17. Print Language: Citizen Of [place] Coding Level of Care Code ED Bank Secrecy Act Officer for Colleen Vaughan
[2024-11-14 12:44] VITALS: RESP 17; O2SAT 98
[2024-11-14] MEDS: tetracaine 0.5% Op Soln 4 mL Btl 2 DROP EYE-BOTH (12:44)
[2024-11-14] MEDS: morphine 4 mg/mL SDV 1 mL 2 MG IVP (12:44)
[2024-11-14] MEDS: cyclopentolate 1% Op Soln 2 mL Btl 1 DROP EYE-BOTH (13:27)
== END 2024-11-14 13:45 | disposition home or self-care (01) ==
PROVIDERS: Emergency Provider Family Medicine; PCP Family Medicine
DX: H20.9 Unspecified iridocyclitis (principal); E11.40 Type 2 diabetes mellitus with diabetic neuropathy, unspecified; J44.9 Chronic obstructive pulmonary disease, unspecified; I48.91 Unspecified atrial fibrillation; Z95.0 Presence of cardiac pacemaker; F17.210 Nicotine dependence, cigarettes, uncomplicated; Z79.899 Other long term (current) drug therapy; Z79.01 Long term (current) use of anticoagulants; Z79.84 Long term (current) use of oral hypoglycemic drugs
CPT/HCPCS: 96374; 99284; J2270; J9999

== ENCOUNTER → 2024-11-19 14:45 | Outpatient (BNVA) | payer MEDICARE, SELFPAY | PROVIDERS: PCP Family Medicine; Visit Provider Family Medicine | DX: E11.65 Type 2 diabetes mellitus with hyperglycemia (principal); R79.89 Other specified abnormal findings of blood chemistry; E87.1 Hypo-osmolality and hyponatremia | CPT/HCPCS: 80048; 83036; 84403 ==

== ENCOUNTER 2024-12-27 18:19 | Emergency (ER) | payer MEDICARE, SELFPAY ==
--- OUTSIDE RECORDS SUMMARY | 2020-06-05 19:00 | XMS_ITS | Continuity of Care Document ---
Author Organization [facility] o[facility] Address [address] [place] [address] Phone Care Team Providers Care Longwall Machine Operator Helper Name Role Phone Waylon Holder MD Unavailable [...] Procedure Date Medical Records [facility]ee [facility] Advance Directives Directive Yes / No Effective Date File Name No Information Encounters Encounter Description Practice Location Reason(s) For Visit Diagnoses Date Provider Providers Copied on Encounter [facility], [address], [place], [place], [address], tel:[phone] [place] [employer] [facility] No Information 1 Glory Connors. [address], [place], [place], [address] , . tel: [phone] Referring Provider: Referred Self. Office/outpat ient visit, [facility], [address], [place], [place], [address], tel:[phone] [place] [facility] Freeform HPI (chief complaint) Hx TIA/stroke w/o residHistory of chest pain at restBorderline hypertension 0 Glory Connors. [address], [place], [place], [address] , [place]. tel: [phone] Referring Provider: Referred Self. [facility], [address], [place], [address], tel:[phone] [employer] [facility] No Information 0 Glory Connors. [address], [place], [address] , . 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 He also [...]
--- OUTSIDE RECORDS SUMMARY | 2022-05-30 19:00 | XMS_ITS | Continuity of Care Document ---
Author Organization [facility] Address [address] [place] [address] Phone Care Team Providers Care Trade Promotion Analyst Name Role Phone Carmelo Hale MD Unavailable Unavailable Allergies, Adverse Reactions, Alerts Substance Reaction Status Criticality No Known Allergies Active No Inform ation Medications Medication Instructions Dosage Effective Dates (start - stop) Status Comments gabapentin 300 mg capsule take 1 capsule by oral route 3 times every day 300 MG - Active morphine ER 15 mg tablet,extended release take 1 tablet by oral route every 12 hours 15 MG - Active NON ACUTE PAIN Percocet 10 mg-325 mg tablet take 1 tablet by oral route every 8 hours as needed - Active NON ACUTE PAIN amitriptyline 50 mg tablet take 1 tablet by oral route every day at bedtime 50 MG - Active Narcan 4 mg/actuation nasal spray spray 0.1 milliliter by intranasal route in 1 nostril may repeat dose every 2-3 minutes as needed, PREVENTIVE MEDICATION - Active cyclobenzaprine 10 mg tablet take 1 tablet by oral route TID as needed - Active methocarbamol 500 mg tablet take 1 tablet by oral route 3 times every day prn spams - Active ketorolac 10 mg tablet take 1 tablet by oral route every 6 hours as needed for up to 5 days total use 10 MG - Active Procedures Procedure Date CONFERENCE With Atty Or Terminal Gauger 2022 Deposition In House Deposition In House CONFERENCE With Atty Or Terminal Gauger 2022 [facility] Medical Records/Xrays Postop followup visit Office/outpatient visit,est, mod 2021 Laminectomy/foraminotomy Laminectomy/foraminotomy Office/outpatient visit,est, high Office/outpatient visit,est, high Office/outpatient visit,est, mod 2021 [facility] Medical Records/Xrays Office/outpatient visit,est, mod 2021 Office/outpatient visit,est, mod 2021 Office/outpatient visit,est, mod 2021 Office/outpatient visit,est, mod 2021 X-ray exam lower spine 2-3 views 2021 Postop followup visit X-ray exam lower spine 2-3 views 2020 [facility] Medical Records/Xrays Trans Facet Lumbar Interbody Fusion (TLI F) Posterolateral Fusion Addtl Level Laminectomy/foraminotomy Laminectomy/foraminotomy Addtl Level Jan Posterior Segmental Instrum INSJ BIOMECHANICAL DEVICE Trans Facet Lumbar Interbody Fusion (TLI F) Posterolateral Fusion Addtl Level Laminectomy/foraminotomy Laminectomy/foraminotomy Addtl Level Jan Posterior Segmental Instrum INSJ BIOMECHANICAL DEVICE [facility] Medical Records/Xrays Office/outpatient visit,est, high Office/outpatient visit,est, high Mechanical traction therapy Electric stimulation therapy, Unattended PT EVAL LOW COMPLEX Electric stimulation therapy, Unattended [facility] Records/Xrays Office/outpatient visit,est, high [facility] Records/Xrays Office/outpatient visit,est, high Office/outpatient visit,est, mod 2020 Office/outpatient visit,est, high [facility] Records/Xrays Office/outpatient visit,est, mod 2019 Office/outpatient visit,est, high Office/outpatient visit,est, mod 2019 Paravertebral Facet Injection Lumbar /w Imaging Paravertebral Facet Injection Lumbar /w Imaging Paravertebral Face Inj Lumbar 2nd Level Paravertebral Face Inj Lumbar 2nd Level Paravertebral Facet Inj Lumbar 3rd And A ny Add Paravertebral Facet Inj Lumbar 3rd And A ny Add [facility] Medical Records/Xrays Office/outpatient visit,est, mod 2019 Paravertebral Facet Injection Lumbar /w Imaging Paravertebral Facet Injection Lumbar /w Imaging Paravertebral Face Inj Lumbar 2nd Level Paravertebral Face Inj Lumbar 2nd Level Paravertebral Facet Inj Lumbar 3rd And A ny Add Paravertebral Facet Inj Lumbar 3rd And A ny Add [facility] Medical Records/Xrays [facility] Medical Records/Xrays Office/outpatient visit,est, mod 2019 Office/outpatient visit,est, mod 2019 Postop followup visit [facility] Medical Records/Xrays [facility] Records/Xrays Office/outpatient visit,est, mod 2019 Postop followup visit Office/outpatient visit,est, high Postop followup visit Postop followup visit [facility] Medical Records/Xrays Laminectomy/foraminotomy Laminectomy/foraminotomy Addtl Level Jun Open bone biopsy, lumbar/cervical Laminectomy/foraminotomy Laminectomy/foraminotomy Addtl Level Jun Open bone biopsy, lumbar/cervical Office/outpatient visit,umer mod 2019 Postop followup visit Postop followup visit Postop followup visit Office/outpatient visit,umer mod 2019 Laminectomy/foraminotomy Laminectomy/foraminotomy Advance Directives Directive Yes / No Effective Date File Name No Information Encounters Encounter Description Practice Location Reason(s) For Visit Diagnoses Date Provider Providers Copied on Encounter [facility], [address], [place], [place], [address], tel:[phone] Miscellaneou s-Legal No Information 3 Geoffrey Rhodes. [address] [facility], [facility] [address], [place], [address], [place]. tel:[phone] Referring Provider: Carmelo Hale MD, [address] [facility] [address], [address]. tel:[phone] [facility], [address], [place], [place], [address], tel:[phone] Miscellaneou s-Legal No Information 3 Geoffrey Rhodes. [address] [facility], [facility] [address], [place], [place], [address], . tel:[phone] Referring Provider: Carmelo Hale MD, [address] [facility] [address], [place], [address]. tel:[phone] [facility], [address], [place], [place], [address], tel:[phone] Miscellaneou s-Legal No Information 3 Debra Montilla. [address] [facility], [address], [id number], . tel:[phone] Referring Provider: Roldan Richardson MD, [address] [place], [address]. tel:[phone] [facility], [address], [place], [place], [address], tel:[phone] Thao s-Legal No Information 3 Debra VANG Roldan. [address] [facility], [address], [address], . tel:[phone] Referring Provider: Roldan Richardson MD, [address] [facility] [address], [place], [address]. tel:[phone] [facility], [address], [address], tel:[phone] [facility] s-Medical Records No Information 2 Debra VANG [facility]. [address] [facility], [facility] [address], [place], [address], . tel:[phone] Referring Provider: Roldan Richardson MD, [address] [facility] [address], [place], [address]. tel:[phone] [facility], [address], [place], [place], [address], tel:[phone] [facility] 400 lumbar spine (chief complaint) Lumbar radiculopathy 2 Cristiano Mai. [address] [facility], [address], [place], [address], . tel:[phone] Referring Provider: Carmelo Hale MD, [address] [facility] [address], [place], [address]. tel:[phone] Office/outpa tient visit,est, [facility], [address], [place], [place], [address], tel:[phone] [facility] 204 lumbar spine (chief complaint) Facet arthritis of lumbar regionLumbar post-laminect maciel syndromeEncou nter for therapeutic drug level monitoringLon g term (current) use of opiate analgesic 2 Khris Wharton. [address], [address], [place], [place], [address], [place]. tel:[phone] Referring Provider: Dio Pinedo MD, [address], [place], [address]. tel:[phone] [facility], [address], [place], [place], [address], [place] tel:[phone] [facility] No Information 2 Geoffrey Rhodes. [address], [address], [place], [place], [address], [place]. tel:[phone] Referring Provider: Carmelo Hale MD, [address], [place], [address]. tel:[phone] Office/outpa tient visit,[facility], [address], [place], [place], [address], [place] tel:[phone] [facility] [address] lumbar spine (chief complaint) Facet arthritis of lumbar regionLumbar post-laminect maciel syndromeLong term (current) use of opiate analgesicEnco unter for therapeutic drug level monitoring 2 Khris Wharton. [address], [address], [place], [place], [address], [place]. tel:[phone] Referring Provider: Dio Pinedo MD, [address], [place], [address]. tel:[phone] Office/outpa tient visit,[facility], [address], [place], [place], [address], [place] tel:[phone] [facility] [address] lumbar spine (chief complaint) Spinal stenosis, lumbar region with neurogenic claudicationL umbar radiculopathy Hx MRSA infection 2 Cristiano Mai. [address] [facility] [address], [address], [place], [place], [address], . tel:[phone] Referring Provider: Carmelo Hale MD, [address] [facility] [address], [place], [address]. tel:[phone] Office/outpa tient visit,est, [facility], [address], [place], [place], [address], tel:[phone] [facility] 400 lumbar spine (chief complaint) Lumbar post-laminect maciel syndromeNeura l foraminal stenosis of lumbosacral spineSpinal stenosis, lumbar region with neurogenic claudicationN eural foraminal stenosis of lumbar spine 2 Geoffrey Rhodes. [address] [facility], [address], [place], [place], [address], . tel:[phone] Referring Provider: Carmelo Hale MD, [address] [facility] [address], [place], [address]. tel:[phone] [facility], [address], [place], [place], [address], tel:[phone] [facility] s-Medical Records No Information 2 Debra Montilla. [address] [facility], [facility] [address], [place], [address], . tel:[phone] Referring Provider: Roldan Richardson MD, [address] [facility] [address], [place], [address]. tel:[phone] [facility], [address], [place], [place], [address], tel:[phone] [facility] 204 lumbar spine pain (chief complaint) Facet arthritis of lumbar regionLong term (current) use of opiate analgesicLumb ar post-laminect maciel syndrome 2 Khris Wharton. [address], [address], [place], [place], [address], [place]. tel:[phone] Referring Provider: Dio Pinedo MD, [address], [place], [address]. tel:[phone] Office/outpa tient visit,[facility], [address], [place], [place], [address], [place] tel:[phone] [place] [address] lumbar spine (chief complaint) Lumbar post-laminect maciel syndromeNeura l foraminal stenosis of lumbosacral spineSpinal stenosis, lumbar region with neurogenic claudicationN eural foraminal stenosis of lumbar spine 2 Geoffrey Rhodes. [address], [address], [place], [place], [address], [place]. tel:[phone] Referring Provider: Carmelo Hale MD, [address], [place], [address]. [phone] Office/outpa tient visit,[facility], [address], [place], [place], [address], [place] tel:[phone] [place] [address] lumbar spine (chief complaint) manager terminal (current) use of opiate analgesicEnco unter for therapeutic drug level monitoringFac et arthritis of lumbar region Apr-0 2 Amparo Silva. [address], [address], [place], [place], [address], [place]. tel:[phone] Referring Provider: Shira Donohue, [address], [place], [address]. tel:[phone] Office/outpa tient visit,[facility], [address], [place], [place], [address], [place] tel:[phone] [facility] 204 lumbar spine (chief complaint) intermediate (current) use of opiate analgesicFace t arthritis of lumbar regionSpinal stenosis, lumbar region with neurogenic claudication 2 Amparo Silva. [address], [address], [place], [place], [address], [place]. tel:[phone] Referring Provider: Shira Donohue, [address], [place], [address]. tel:[phone] [facility], [address], [place], [place], [address], [place] tel:[phone] [facility] 400 lumbar spine (chief complaint) Lumbar radiculopathy 1 Candido Oh. [address], [address], [place], [place], [address], [place]. tel:[phone] Referring Provider: Carmelo Hale MD, [address], [place], [address]. [phone] [facility], [address], [place], [place], [address], [place] tel:[phone] [facility] s-Medical Records No Information 1 Geoffrey Rhodes. [address], [address], [place], [address], [place]. tel:[phone] Referring Provider: Carmelo Hale MD, [address], [place], [address]. tel:[phone] [facility], [address], [place], [place], [address], [place] tel:[phone] [place] [address] No Information 1 Rogelio Cortez. [address], [address], [place], [place], [address], [place]. tel:[phone] Referring Provider: Carmelo Hale MD, [address], [place], [address]. [phone] [facility], [address], [place], [place], [address], [place] tel:[phone] [facility] No Information 1 Geoffrey Rhodes. [address], [address], [place], [place], [address], [place]. tel:[phone] Referring Provider: Carmelo Hale MD, [address], [place], [address]. tel:[phone] [facility], [address], [place], [place], [address], [place] tel:[phone] [facility] s-Medical Records No Information 1 Geoffrey Rhodes. [address], [address], [place], [place], [address], [place]. tel:[phone] Referring Provider: Carmelo Hale MD, [address], [place], [address]. tel:[phone] Office/outpa tient visit,est, high [facility], [address], [place], [place], [address], [place] tel:[phone] [facility] 400 lumbar spine (chief complaint) Lumbar post-laminect maciel syndromeNeura l foraminal stenosis of lumbosacral spineSpinal stenosis, lumbar region with neurogenic claudicationN eural foraminal stenosis of lumbar spineFoot drop, left foot 1 Geoffrey Rhodes. [address], [address], [place], [place], [address], [place]. tel:[phone] Referring Provider: Carmelo Hale MD, [address], [place], [address]. tel:[phone] [facility], [address], [place], [place], [address], [place] tel:[phone] [address] Foot drop, left foot Oct- 1 Geoffrey Rhodes. [address], [address], [place], [place], [address], [place]. tel:[phone] Referring Provider: Carmelo Hale MD, [address], [place], [address]. tel:[phone] Office/outpa tient visit,[facility], high [facility], [address], [place], [place], [address], [place] tel:[phone] [facility] 400 lumbar spine (chief complaint) Lumbar post-laminect maciel syndromeNeura l foraminal stenosis of lumbosacral spineSpinal stenosis, lumbar region with neurogenic claudicationF oot drop, left footNeural foraminal stenosis of lumbar spine Sep-2 1 Geoffrey Rhodes. [address], [address], [place], [address], [place]. tel:[phone] Referring Provider: Carmelo Hale MD, [address], [place], [address]. tel:[phone] [facility], [address], [place], [place], [address], tel:[phone] [facility] [address] Postlaminecto my syndrome, not elsewhere classifiedOth symptoms and signs involving the musculoskelet al systemFoot drop, left foot Sep-2 1 Lashae Milton. [address], [address], [place], [place], [address], [place]. tel:[phone] Referring Provider: Carmelo Hale MD, [address], [place], [address]. tel:[phone] [facility], [address], [place], [place], [address], tel:[phone] [facility] [address] Weakness of left lower extremityLeft foot dropPostlamin ectomy syndrome, not elsewhere classified Sep-1 1 Lashae JEANINE Yoan. [address], [address], [place], [place], [address], [place]. tel:[phone] Referring Provider: Carmelo Hale MD, [address], [place], [address]. tel:[phone] [facility], [address], [place], [place], [address], tel:[phone] [facility] s-Medical Records No Information 1 Geoffrey Rhodes. [address], [address], [place], [place], [address], [place]. tel:[phone] Referring Provider: Carmelo Hale MD, [address] [facility] [address], [place], [address]. tel:[phone] [facility], [address], [place], [place], [address], tel:[phone] [facility] [address] Lumbar post-laminect maciel syndrome 1 Alla Juarez. [address] [facility], [address], [place], [place], [address], . tel:[phone] Referring Provider: Roldan Richardson MD, [address] [facility] [address], [place], [address]. tel:[phone] Office/outpa tient visit,[facility], [facility], [address], [place], [place], [address], [place] tel:[phone] [facility] [address] lumbar spine (chief complaint) Lumbar post-laminect maciel syndromeLumba r radiculopathy Neural foraminal stenosis of lumbar spineNeural foraminal stenosis of lumbosacral spineSpinal stenosis, lumbar region with neurogenic claudication 1 Geoffrey Rhodes. [address], [address], [place], [place], [address], [place]. tel:[phone] Referring Provider: Roldan Richardson MD, [address] [facility] [address], [place], [address]. tel:[phone] [facility], [address], [place], [place], [address], tel:[phone] [facility] s-Medical Records No Information 1 Geoffrey Rhodes. [address] [facility], [address], [place], [address], [place]. tel:[phone] Referring Provider: Carmelo Hale MD, [address] [facility] [address], [place], [address]. tel:[phone] Office/outpa tient visit,[facility], [facility], [address], [place], [place], [address], tel:[phone] [facility] 400 lumbar spine (chief complaint) Lumbar post-laminect maciel syndrome 1 Debra Montilla. [address] [facility], [address], [place], [place], [address], . tel:[phone] Referring Provider: Roldan Richardson MD, [address] [facility] [address], [place], [address]. [phone] [facility], [address], [place], [address], [place] tel:[phone] [facility] 204 Facet arthritis of lumbar region 1 Khris Wharton. [address] [facility], [address], [place], [place], [address], [place]. tel:[phone] Referring Provider: Gisselle GARCIA, [address] [facility] [address], [place], [address]. tel:[phone] Office/outpa tient visit,[facility], [address], [place], [place], [address], [place] tel:[phone] [facility] [address] lumbar spine (chief complaint) Postlaminecto my syndromeLong term (current) use of opiate analgesic Jun- 9- 1 Jagjit Pitts. [address], [address], [place], [place], [address], . tel:[phone] Referring Provider: Gisselle GARCIA, [address] [facility] [address], [place], [address]. tel:[phone] [facility], [address], [place], [place], [address], [place] tel:[phone] [facility] [address] Lumbar post-laminect maciel syndrome Jun- 0- 1 Debra VANG [facility]. [address] [facility], [address], [place], [place], [address], . tel:[phone] Referring Provider: Roldan Richardson MD, [address] [facility] [address], [place], [address]. tel:[phone] Office/outpa tient visit,[facility], high [facility], [address], [place], [place], [address], tel:[phone] [facility] 201 lumbar spine (chief complaint) Lumbar post-laminect maciel syndrome Jun-0 - 1 Debra VANG [facility]. [address] [facility], [address], [place], [place], [address], . tel:[phone] Referring Provider: Roldan Richardson MD, [address] [facility] [address], [place], [address]. tel:[phone] [facility], [address], [place], [place], [address], tel:[phone] [facility]-Medical Records No Information - 0 Khris Wharton. [address] [facility], [address], [place], [place], [address], [place]. tel:[phone] Referring Provider: Dio Pinedo MD, [address], [place], [address]. tel:[phone] Office/outpa tient visit,[facility], [address], [place], [place], [address], [place] tel:[phone] [facility] 204 lumbar spine (chief complaint) Postlaminecto my syndromeLong term (current) use of opiate analgesic Dec- 0 Khris Wharton. [address], [address], [place], [place], [address], [place]. tel:[phone] Referring Provider: Dio Pinedo MD, [address], [place], [address]. tel:[phone] Office/outpa tient visit,[facility], [address], [place], [address], [place] tel:[phone] [facility] 204 lumbar spine (chief complaint) Body mass index (BMI) 28.0-28.9, adultPostlami nectomy syndromeLong term (current) use of opiate analgesicPain management contract agreement 0 Khris Wharton. [address], [address], [place], [place], [address], [place]. tel:[phone] Office/outpa tient visit,[facility], [address], [place], [place], [address], [place] tel:[phone] [facility] 204 lumbar spine (chief complaint) Body mass index (BMI) 28.0-28.9, adultLumbar post-laminect maciel syndrome Oct- 0 Yanelis Duke. [address], [place], [address], [place]. tel:[phone] Referring Provider: Srikanth Hilario MD, [address], [place], [address]. tel:[phone] [facility], [address], [place], [place], [address], [place] tel:[phone] [facility] No Information 0 Yanelis Duke. [address], [place], [place], [address], [place]. tel:[phone] Referring Provider: Srikanth Hilario MD, [address], [place], [address]. tel:[phone] [facility], [address], [place], [place], [address], [place] tel:[phone] [facility] Records Lumbar radiculopathy 0 Yanelis Duke. [address], [place], [address], [place]. tel:[phone] Referring Provider: Srikanth Hilario MD, [address], [place], [address]. tel:[phone] Office/outpa tient visit,est, [facility] Sports Medicine, [address], [place], [place], [address], [place] tel:[phone] [facility] Tele[facility] lumbar spine pain (chief complaint) Body mass index (BMI) 28.0-28.9, adultLumbar post-laminect maciel syndrome 0 Yanelis Duke. [address], [place], [place], [address], [place]. tel:[phone] Referring Provider: Srikanth Hilario MD, [address], [place], [address]. tel:[phone] [facility], [address], [place], [address], [place] tel:[phone] [facility] No Information 0 Yanelis Duke. [address], [place], [place], [address], [place]. tel:[phone] Referring Provider: Srikanth Hilario MD, [address], [place], [address]. tel:[phone] [facility], [address], [place], [place], [address], tel:[phone] [facility] No Information 0 Yanelis Duke. [address], [place], [address], [place]. tel:[phone] Referring Provider: Srikanth Hilario MD, [address], [place], [address]. tel:[phone] [facility], [address], [place], [address], tel:[phone] [facility] No Information 0 Yanelis Duke. [address], [place], [address], [place]. tel:[phone] Referring Provider: Srikanth Hilario MD, [address], [place], [address]. tel:[phone] Office/outpa tient visit,est, mod [facility], [address], [address], tel:[phone] [facility] [address] lumbar spine pain (chief complaint) Lumbar post-laminect maciel syndromeBody mass index (BMI) 28.0-28.9, adult 0 Yanelis Duke. [address], [place], [place], [address], [place]. tel:[phone] Referring Provider: Srikanth Hilario MD, [address], [place], [address]. tel:[phone] [facility], [address], [place], [place], [id number], tel:[phone] [facility] Procedure [address] Lumbar post-laminect maciel syndrome 0 Yanelis Duke. [address], [place], [place], [address], [place]. tel:[phone] Referring Provider: Srikanth Hilario MD, [address], [place], [address]. tel:[phone] Office/outpa tient visit,est, mod [facility], [address], [place], [place], [address], [place] tel:[phone] [facility] lumbar spine pain (chief complaint) Body mass index (BMI) 26.0-26.9, adultLumbar post-laminect maciel syndrome Apr-2 0 Yanelis Duke. [address], [place], [place], [address], [place]. tel:[phone] Referring Provider: Srikanth Hilario MD, [address], [place], [address]. tel:[phone] [facility], [address], [place], [place], [address], [place] tel:[phone] [facility] [address] lumbar spine (chief complaint) Lumbar post-laminect maciel syndromeBody mass index (BMI) 26.0-26.9, adult Apr-2 0 Debra Montilla. [address] [facility], [address] [facility], [place], [place], [address], [place]. tel:[phone] Referring Provider: Roldan Richardson MD, [address] [facility] [address] [place] [address], [address]. tel:[phone] [facility], [address], [place], [place], [address], [place] tel:[phone] [facility] s-Medical Records No Information Jul-2 0 Debra Montilla. [address] [facility], [address], [place], [place], [address], [place]. tel:[phone] Referring Provider: Roldan Richardson MD, [address] [facility] [address], [place], [address]. tel:[phone] [facility], [address], [place], [place], [address], [place] tel:[phone] [facility] s-Medical Records No Information Jul-0 0 Debra Montilla. [address] [facility], [address], [place], [place], [address], [place]. tel:[phone] Referring Provider: Roldan Richardson MD, [address] [facility] [address], [place], [address]. tel:[phone] Office/outpa tient visit,[facility], [facility], [address], [place], [place], [address], [place] tel:[phone] [facility] 204 lumbar spine pain (chief complaint) Body mass index (BMI) 26.0-26.9, adultLumbar post-laminect maciel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 the leg on the left side. The symptoms are aggravated by daily activities, sitting and standing. Reji states that the symptoms are relieved by rest. In addition to lumbar spine pain the patient is also experiencing decreased mobility. He denies having any pertinent negatives. lumbar spine pain Mr Remy is a 53 year old male who complains of lumbar spine pain. Patient is prescribed Percocet which provides 50-60% relief. He presents with pain. The symptoms occur constantly. The problem is stable. Currently the patient states that the symptoms are mild-moderate. The pain is described as sharp and shooting. The symptoms occur with activity. He rates his best pain as 4/10. He rates his worst pain as 8/10. He rates his current pain as 6/10. The pain radiates from the lower back on the left side then to the leg on the left side. The symptoms are aggravated by daily activities, sitting and walking. Reji states that the symptoms are relieved by rest. In addition to lumbar spine pain the patient is also experiencing decreased mobility. He denies having any pertinent negatives. lumbar spine Reji Remy is a 53 year old male. Patient is present for a 4 week reassessment. Patient s/p L4-5 bilateral Laminotomy and Foraminotomy on 05/14/[address] Richardson. Patient s/p I&D on 07/03/19 with Andree Parisi. Patient states his Pik line was removed today. he states he has generalized pain but reports improvement since surgery. He reports current pain level 6/10. The symptoms occur occasionally. The problem is fluctuating. Currently the patient states that the symptoms are mild-moderate. The pain is described as aching and dull. The symptoms occur continuously. The symptoms are aggravated by daily activities. Reji states that the symptoms are relieved by pain medicine and rest. In addition to lumbar spine the patient is also experiencing decreased mobility. lumbar spine pain Mr Remy is a 53 year old male who complains of lumbar spine pain. Patient is prescribed Percocet which provides 50% relief. He presents with pain. The symptoms occur constantly. The problem is stable. Currently the patient states that the symptoms are mild-moderate. The pain is described as dull. The symptoms occur with activity. He rates his best pain as 4/10. He rates his worst pain as 8/10. He rates his current pain as 7/10. The pain radiates from the lower back on the left side then to the leg on the left side. The symptoms are aggravated by daily activities. Reji states that the symptoms are relieved by rest. In addition to lumbar spine pain the patient is also experiencing decreased mobility. He denies having any pertinent negatives. lumbar spine Reji Remy is a 53 year old male. Patient s/p irrigation and debridement performed on 07/03/[address] Richardson. Patient s/p Bilateral L4-5 laminotomy foraminotomy performed on 05/14/[address] Richardson. He presents with pain. The problem is improving. Currently the patient states that the symptoms are severe. The pain is described as aching. The symptoms occur intermittently. The patient is experiencing pain in the following location: lower back. He rates his worst pain as 10/10. He rates his current pain as 8/10. The pain radiates to the left thigh. The symptoms are aggravated by daily activities. Reji states that the symptoms are relieved by pain medicine and rest. In addition to lumbar spine the patient is also experiencing decreased mobility and numbness and tingling, LLE. lumbar spine pain Mr Remy is a 53 year old male who complains of lumbar spine pain. Patient is prescribed Percocet which provides 50% relief. He presents with pain. He states that the symptoms have been chronic non-traumatic. The symptoms occur constantly. The problem is stable. Currently the patient states that the symptoms are moderate-severe. The pain is described as sharp. The symptoms occur continuously. The patient is experiencing pain in the following location: lower back on the left side. He rates his current pain as 8/10. The symptoms are aggravated by daily activities. Reji states that the symptoms are relieved by pain medicine and rest. In addition to lumbar spine pain the patient is also experiencing decreased mobility. lumbar spine Mr Remy is a 53 year old male who complains of lumbar spine. Patient s/p bilateral L4-5 laminotomy foraminotomy performed on 05/14/[address] Richardson Also s/p s/p I&D on 07/03/19 with S. Aureus. He presents with pain. The symptoms occur constantly. The problem is stable. The patient is experiencing pain in the following location: lower back. He rates his current pain as 8/10. lumbar spine Reji Remy is a 53 year old male. Patient s/p bilateral L4-5 laminotomy foraminotomy performed on 05/14/[address] Richardson Also s/p s/p I&D on 07/03/19 with S. Aureus. Patient is present for clinical reassessment. lumbar spine Mr Remy is a 53 year old male who complains of lumbar spine. He presents with pain. Patient is referred by Dr. Richardson. Patient s/p bilateral L4-5 laminotomy foraminotomy performed on 05/14/[address] Richardson. Patient is taking NSAIDs for pain. He complains of BLE numbness. The symptoms occur constantly with intermittent worsening. Currently the patient states that the symptoms are moderate. The pain is described as aching, throbbing and shooting. The symptoms occur continuously. The patient is experiencing pain in the following location: lower back. He rates his current pain as 7/10. The pain does not radiate. The symptoms are aggravated by daily activities, walking, twisting and standing. Reji states that the symptoms are relieved by no specific activity. In addition to lumbar spine the patient is also experiencing LLE weakness. lumbar spine Reji Remy is a 53 year old male. Patient s/p bilateral L4-5 laminotomy foraminotomy performed on 05/14/[address] Richardson He presents with pain and swelling at incision. The symptoms occur intermittently. The problem is fluctuating. Currently the patient states that the symptoms are variable. The pain is described as aching, sharp and shooting. The patient is experiencing pain in the following location: lower back. He rates his worst pain as 10/10. He rates his current pain as 6/10. The pain radiates to the lower extremities. The symptoms are aggravated by daily activities. Reji states that the symptoms are relieved by rest. In addition to lumbar spine the patient is also experiencing decreased mobility. lumbar spine Reji Remy is a 53 year old male. Patient presents 3 wks s/p bilateral L4-5 laminotomy & foraminotomy by Dr. Richardson on 05/14/19. He reports he is having spasms and [place] is not relieving pain. He presents with surgery follow up and pain. The symptoms occur intermittently. The problem is unchanged. Currently the patient states that the symptoms are moderate. The pain is described as aching. The symptoms occur intermittently. The patient is experiencing pain in the following location: lower back. He rates his current pain as 8/10. The pain radiates to the lower extremities on the left side. Reji states that the symptoms are relieved by rest. In addition to lumbar spine the patient is also experiencing decreased mobility. lumbar spine Reji Remy is a 53 year old male. Patient presents 2 wks s/p bilateral L4-5 laminotomy & foraminotomy by Dr. Richardson on 05/14/19. He has intermittent sharp shooting pain down his left leg. He has tingling of the feet with sitting. He states his gait is off on the left side. He is having constant low grade headaches from 05/10/2019. Pain level is 5-6 / 10. He presents with surgery follow up. The symptoms occur constantly with intermittent worsening. The problem is fluctuating. Currently the patient states that the symptoms are mild-moderate. The pain is described as aching and sharp. The symptoms occur continuously. The symptoms are aggravated by daily activities and walking. Reji states that the symptoms are relieved by rest. He denies having any associated symptoms. Functional Status Date Functional Assessmen t No Information Instructions Date Instruction Additional Infor cindy Patient is 4 weeks s .p Bilateral L3-4 Revision Laminotomy/foraminotomy performed by Dr. Hale on 10/12/21 for a history including lami 04/2020 and then I&D 06/[address] Richardson after he had cauda equina He notes residual marked low back and left greater than right leg pain in L5 dermatomeHe is miserableHe has had epidurals with the pain persisting despite Epidurals with Dr Johnson, Dr Hilario, Dr McneillMRI demonstrates moderate to severe foraminal stenosis L4-5, L5-S1 and central stenosis L3-4, L4-5I ordered PT with worseningPT notes reviewed MRI lumbar are reviewed with images independently reviewed along with reportsMedications were reviewed. he cannot tolerate neurontinHE IS CONCERNED WITH WORSENING LEFT LEG NUMBNESS AND WEAKNESSWe performed laminectomy foraminotomy L3-4 with TLIF L4-5, L5-S1 (fusion would be indicated due to prior decompression, need to restore foraminal height and concern for iatrogenic instability) 01/2021Initially he was markedly improvedHowever, he has now noting low back and buttocks into the legsI ordered CT lumbar to assess the fusion and screws placementCT demonstrates well positioned screws but residual stenosis at L3-4Fusion is consolidating and screws are well positionedWe discussed revision bilateral laminotomy foraminotomy L3-4 . Patient is extremely happy with the results of the surgery. He is doing well. He continues to take pain medication as per pain management. He continues taking gabapentin. He is ambulating well with distances now. Exam today demonstrates the posterior lumbar incision to be well-healed. Motor strength is 5/5 except for a slight weakness of the EHL on the left at 4/5 sensory exam is intact. Recommend gabapentin 300 mg p.o. 3 times daily #90. Patient will continue with pain management as directed. Return in 4 weeks for his 8-week postoperative visit. Related to Lumbar radiculopathy Continue physician d irected home exercisesPercocet 10/325mg q8h PRNMorphine ER 15 mg [id number]:Testing: Urine toxicology as neededLifestyle: Encouraged stress releasing techniques IE meditation and yoga, pool based exercises-walking and core strengthening. Instructed not to consume ETOH while taking narcotics and to not drive while a new medication or dose is being started prior to acknowledging side-effects. Follow up: PRN / Discharge Related to intermediate (current) use of opiate analgesic Continue physician d irected home exercisesPercocet 10/325mg 1-2 tablets q4-6h PRNConsults:Testing: Urine toxicology as neededLifestyle: Encouraged stress releasing techniques IE meditation and yoga, pool based exercises-walking and core strengthening. Instructed not to consume ETOH while taking narcotics and to not drive while a new medication or dose is being started prior to acknowledging side-effects. Follow up: 1 month for medications and UDS REPORT Related to intermediate (current) use of opiate analgesic Patient presents for H&P pre-op visit for revision bilateral laminotomy foraminotomy L3-4 to be [place] 10[place]12[place] [facility] [place] Hale for a history including s/p lami 04/2020 and then I&D 06/[address] Richardson after he had cauda equina He notes residual marked low back and left greater than right leg pain in L5 dermatomeHe is miserableHe has had epidurals with the pain persisting despite Epidurals with Dr Johnson, Dr Hilario, Dr McneillMRI demonstrates moderate to severe foraminal stenosis L4-5, L5-S1 and central stenosis L3-4, L4-5I ordered PT with worseningPT notes reviewed MRI lumbar are reviewed with images independently reviewed along with reportsMedications were reviewed. he cannot tolerate neurontinHE IS CONCERNED WITH WORSENING LEFT LEG NUMBNESS AND WEAKNESSWe performed laminectomy foraminotomy L3-4 with TLIF L4-5, L5-S1 (fusion would be indicated due to prior decompression, need to restore foraminal height and concern for iatrogenic instability) 01/2021Initially he was markedly improvedHowever, he has now noting low back and buttocks into the legsI ordered CT lumbar to assess the fusion and screws placementCT demonstrates well positioned screws but residual stenosis at L3-4Fusion is consolidating and screws are well positionedWe discussed revision bilateral laminotomy foraminotomy L3-4 the patient has been medically cleared for the above-mentioned procedure. All laboratory work was reviewed and found to be within normal limits. We discussed risks complications and alternatives regarding the above-mentioned procedure to include but not limited to what is listed on the consent form the patient has signed in the office today. We discussed preoperative nothing by mouth. We discussed preoperative medications. Patient will be seen postoperatively as scheduled. All questions were answered. Patient would like to proceed as outlined above.patient continues to complain of severe bilateral lower extremity pain with inability to ambulate long distances. Related to Lumbar radiculopathy s/p lami 04/2020 and then I&D 06/[address] Richardson after he had cauda equina He notes residual marked low back and left greater than right leg pain in L5 dermatomeHe is miserableHe has had epidurals with the pain persisting despite Epidurals with Dr Johnson, Dr Hilario, Dr McneillMRI demonstrates moderate to severe foraminal stenosis L4-5, L5-S1 and central stenosis L3-4, L4-5I ordered PT with worseningPT notes reviewed MRI lumbar are reviewed with images independently reviewed along with reportsMedications were reviewed. he cannot tolerate neurontinHE IS CONCERNED WITH WORSENING LEFT LEG NUMBNESS AND WEAKNESSWe performed laminectomy foraminotomy L3-4 with TLIF L4-5, L5-S1 (fusion would be indicated due to prior decompression, need to restore foraminal height and concern for iatrogenic instability) 01/2021Initially he was markedly improvedHowever, he has now noting low back and buttocks into the legsI ordered CT lumbar to assess the fusion and screws placementCT demonstrates well positioned screws but still some stenosis at L3-4Fusion is consolidating and screws are well positionedWe discussed revision bilateral laminotomy foraminotomy L3-4Medications were discussed. He cannot tolerate neurontin All questions were answered. Risks and benefits were discussed. Alternatives discussed. Procedure described in detail. We will proceed forward. Discussion with patient ensued with regards to whether surgery is to be performed at the hospital versus outpatient surgery center. Risks and benefits of both were described, along with discussion of increased occurence of nosocomial infection and morbidity at the hospital as compared with an outpatient setting. The patient wished to proceed forward with surgery at an outpatient facility. Thus, we will proceed forward with [place] [facility] Related to Lumbar post-laminectomy syndrome Continue physician d irected home exercisesPercocet 10/325mg q8h PRNConsults:Testing: Urine toxicology as neededLifestyle: Encouraged stress releasing techniques IE meditation and yoga, pool based exercises-walking and core strengthening. Instructed not to consume ETOH while taking narcotics and to not drive while a new medication or dose is being started prior to acknowledging side-effects. Follow up: 1 month for medications and UDS Related to intermediate (current) use of opiate analgesic s/p lami 04/2020 and then I&D 06/[address] Richardson after he had cauda equina He notes residual marked low back and left greater than right leg pain in L5 dermatomeHe is miserableHe has had epidurals with the pain persisting despite Epidurals with Dr Johnson, Dr Hilario, Dr McneillMRI demonstrates moderate to severe foraminal stenosis L4-5, L5-S1 and central stenosis L3-4, L4-5I ordered PT with worseningPT notes reviewed MRI lumbar are reviewed with images independently reviewed along with reportsMedications were reviewed. he cannot tolerate neurontinHE IS CONCERNED WITH WORSENING LEFT LEG NUMBNESS AND WEAKNESSWe performed laminectomy foraminotomy L3-4 with TLIF L4-5, L5-S1 (fusion would be indicated due to prior decompression, need to restore foraminal height and concern for iatrogenic instability) 01/2021Initially he was markedly improvedHowever, he has now noting low back and buttocks into the legsI will order CT lumbar to assess the fusion and screws placementMedications were discussed. He cannot tolerate neurontin Related to Lumbar post-laminectomy syndrome Continue physician d irected home exercisesPercocet 5/325 mg Q6h PRNConsults:Testing: Urine toxicology as neededLifestyle: Encouraged stress releasing techniques IE meditation and yoga, pool based exercises-walking and core strengthening. Instructed not to consume ETOH while taking narcotics and to not drive while a new medication or dose is being started prior to acknowledging side-effects. Follow up: 1 month for medications and UDS f/u with Dr. Pinedo. Related to manager terminal (current) use of opiate analgesic Continue physician d irected home exercisesPercocet 5/325 mg Q6h PRNConsults:Testing: Urine toxicology as neededLifestyle: Encouraged stress releasing techniques IE meditation and yoga, pool based exercises-walking and core strengthening. Instructed not to consume ETOH while taking narcotics and to not drive while a new medication or dose is being started prior to acknowledging side-effects. Follow up: 1 month for medications and UDS with Dr. Pinedo. Related to manager terminal (current) use of opiate analgesic S/P Lumbar fusion a month ago. Continue with bending/lifting/twisting precautions. Can transition out of brace. Any new weakness, loss of bowl or bladder let us know right away. Resolute for pain management. Follow in 4 weeks, xray upon arrival. Related to Lumbar radiculopathy s/p lami 04/2020 and then I&D 06/[address] Richardson after he had cauda equina He notes residual marked low back and left greater than right leg pain in L5 dermatomeHe is miserableHe has had epidurals with the pain persisting despite Epidurals with Dr Johnson, Dr Hilario, Dr Pollock demonstrates moderate to severe foraminal stenosis L4-5, L5-S1 and central stenosis L3-4, L4-5I ordered PT with worseningPT notes reviewed MRI lumbar are reviewed with images independently reviewed along with reportsMedications were reviewed. he cannot tolerate neurontinHE IS CONCERNED WITH WORSENING LEFT LEG NUMBNESS AND WEAKNESSWe again discussed laminectomy foraminotomy L3-4 with TLIF L4-5, L5-S1 (fusion would be indicated due to prior decompression, need to restore foraminal height and concern for iatrogenic instability)THIS IS INDICATED DO TO PAIN REFRACTORY TO PT, EPIDURALS, MEDICATION AND TIME WITH NOW WORSENING WEAKNESS AND NUMBNESS All questions were answered. Risks and benefits were discussed. Alternatives discussed. Procedure described in detail. We will proceed forward.He will need MRSA swab and preop vancomycin Discussion with patient ensued with regards to whether surgery is to be performed at the hospital versus outpatient surgery center. Risks and benefits of both were described, along with discussion of increased occurence of nosocomial infection and morbidity at the hospital as compared with an outpatient setting. The patient wished to proceed forward with surgery at an outpatient facility. Thus, [place] [facility] [place] to Lumbar post-laminectomy syndrome s/p lami 04/2020 and then I&D 06/[address] Richardson after he had cauda equina He notes residual marked low back and left greater than right leg pain in L5 dermatomeHe is miserableHe has had epidurals with the pain persisting despite Epidurals with Dr Johnson, Dr Hilario, Dr Pollock demonstrates moderate to severe foraminal stenosis L4-5, L5-S1 and central stenosis L3-4, L4-5I ordered PT with worseningPT notes reviewed MRI lumbar are reviewed with images independently reviewed along with reportsMedications were reviewed. he cannot tolerate neurontinHE IS CONCERNED WITH WORSENING LEFT LEG NUMBNESS AND WEAKNESSWe again discussed laminectomy foraminotomy L3-4 with TLIF L4-5, L5-S1 (fusion would be indicated due to prior decompression, need to restore foraminal height and concern for iatrogenic instability)THIS IS INDICATED DO TO PAIN REFRACTORY TO PT, EPIDURALS, MEDICATION AND TIME WITH NOW WORSENING WEAKNESS AND NUMBNESS All questions were answered. Risks and benefits were discussed. Alternatives discussed. Procedure described in detail. We will proceed forward.He will need MRSA swab and preop vancomycin Related to Lumbar post-laminectomy syndrome s/p lami 04/2020 and then I&D 06/[address] Richardson after he had cauda equina He notes residual marked low back and left greater than right leg pain in L5 dermatomeHe is miserableHe has had epidurals with the pain persisting despite Epidurals with Dr Johnson, Dr Hilario, Dr Pollock demonstrates moderate to severe foraminal stenosis L4-5, L5-S1 and central stenosis L3-4, L4-5 MRI lumbar are reviewed with images independently reviewed along with reportsMedications were reviewed. he cannot tolerate neurontinI will trial PTWe did discuss he may require laminectomy foraminotomy L3-4 with TLIF L4-5, L5-S1 (fusion would be indicated due to prior decompression, need to restore foraminal height and concern for iatrogenic instability)Risks and benefits of surgery were discussed. Related to Lumbar post-laminectomy syndrome Mr. Remy is seen to day for evaluation of his lumbar spine. He reports improvement in his radicular pain, however continues to have numbness in the left leg and left foot drop. He reports improvement in his right-sided radicular symptoms. He underwent subsequent I&D on 07/03/23 epidural abscess and his cultures are growing staph aureus, resistant only to penicillin. He had a PICC line and is completed 6 weeks of IV antibiotics. His wound is completely healed. he still has residual weakness in the left leg however this is also improving. He was in pain management with Dr. Hilario. He still has a residual left foot drop which was present prior to surgery. He continues to have lower back pain which is chronic. His incision is fully healed. He has completed all of his antibiotics. He still does not have a primary care physician. Over the past few weeks he reports worsening lower back pain radiating into the legs, worse on the left side. His lumbar spine MRI imaging and radiologist report reviewed dated 10/17/2020 showing decompression at L4-L5 with bilateral foraminal narrowing at L4-5 and L5-S1. There is decompression centrally at L4-5 with minimal central stenosis. Per the report, the MRI was compared to previous lumbar spine MRI examinations dated 05/14/2019, 05/18/2019, 05/22/2019, 06/09/2019, 07/02/2019, 07/14/2019, and 09/10/2019, and the MRI from 10/17/2020 is unchanged from prior examinations. We discussed treatment options including conservative care, injections, and surgery. After thorough discussion he elected to continue following with pain management for possible injections and medications. For his residual foraminal stenosis, the surgery to treat this problem would be a lumbar fusion at L4-5 and L5-S1, however given his history of spine infection, the risk of infection is too high with instrumented fusion and I do not recommend surgery at this time. He can continue following along with pain management. Related to Lumbar post-laminectomy syndrome Continue physician d irected home exercisesOpiate agreement Right RFA [id number] L5S1 2 weeks after Left RFA [id number] 5/325 mg Q6h PRNValium 5mg 1-2 tabs 1 hr prior to procedure may repeat 30 minutes prior to procedure patient advised must have a bulk driver for post-injection to drive him homeConsults:Testing: Urine toxicology as neededLifestyle: Encouraged stress releasing techniques IE meditation and yoga, pool based exercises-walking and core strengthening. Instructed not to consume ETOH while taking narcotics and to not drive while a new medication or dose is being started prior to acknowledging side-effects. Follow up: 1 month for medications and UDS results Related to manager terminal (current) use of opiate analgesic Mr. Remy is seen to day for evaluation of his lumbar spine. He reports improvement in his radicular pain, however continues to have numbness in the left leg and left foot drop. He reports improvement in his right-sided radicular symptoms. He underwent subsequent I&D on 07/03/23 epidural abscess and his cultures are growing staph aureus, resistant only to penicillin. He had a PICC line and is completed 6 weeks of IV antibiotics. His wound is completely healed. he still has residual weakness in the left leg however this is also improving. He was in pain management with Dr. Hilario. He still has a residual left foot drop which was present prior to surgery. He continues to have lower back pain which is chronic. His incision is fully healed. He has completed all of his antibiotics. He still does not have a primary care physician. We discussed treatment options including conservative care, injections, and surgery. After thorough discussion he elected to continue following with pain management, and I will see him back PRN as there is no indication for surgery at this time. . Related to Lumbar post-laminectomy syndrome Mr. Remy is seen to day for evaluation of his lumbar spine. He reports improvement in his radicular pain, however continues to have numbness in the left leg and left foot drop. He reports improvement in his right-sided radicular symptoms. He underwent subsequent I&D on 07/03/23 epidural abscess and his cultures are growing staph aureus, resistant only to penicillin. He had a PICC line and is completed 6 weeks of IV antibiotics. His wound is completely healed. he still has residual weakness in the left leg however this is also improving. He was in pain management with Dr. Hilario. He still has a residual left foot drop which was present prior to surgery. He continues to have lower back pain which is chronic. His incision is fully healed. He has completed all of his antibiotics. He still does not have a primary care physician. We discussed treatment options including conservative care, injections, and surgery. After thorough discussion he elected to continue following with pain management, and I will see him back PRN as there is no indication for surgery at this time. . Related to Lumbar post-laminectomy syndrome Continue physician d irected home exercisesPercocet 5/325 mg Q6h PRNConsults:Testing: Urine toxicology as neededLifestyle: Encouraged stress releasing techniques IE meditation and yoga, pool based exercises-walking and core strengthening. Instructed not to consume ETOH while taking narcotics and to not drive while a new medication or dose is being started prior to acknowledging side-effects. Follow up: 1 month for medications and ORAL SWAB REPORT Related to intermediate (current) use of opiate analgesic Continue physician d irected home exercisesPercocet 5/325 mg Q6h PRNCyclobenzaprine 10 mg q12h PRN + 5 refills November 2019Consults:Testing: Urine toxicology as neededLifestyle: Encouraged stress releasing techniques IE meditation and yoga, pool based exercises-walking and core strengthening. Instructed not to consume ETOH while taking narcotics and to not drive while a new medication or dose is being started prior to acknowledging side-effects. 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 His main complaint today is low back pain with no radiation most of the time worse with back extension and rotation on exam. He has tried PT/physician directed home exercises for at least 6 weeks within the last 6 months for at least 3-4 days per week times one hour, NSAIDs, hydrocodone, oxycodone, gabapentin with side effectsCurrent medication regimen controlling patient's pain; more functional; no diversion/misuse, no side effects. He is complaining of worsening low back pain with no radiation worsened back extension and rotation on exam. Since last MBB patient has been doing physician directed home exercises for at least 6 weeks within the last 6 months 3-4 days per week times one hour, NSAIDS. Patient has functional limitations 2/2 pain.MRI lumbar spine reviewed with the patient shows multilevel disc herniations, stenosis, facet arthropathystatus post MBB bilateral L4, L5, S1 with 70% relief. He thinks I should go higher11/15 second MBB bilateral L3, L4, L5 with 100% reliefpatient will schedule in the future: RFA lumbar 1 side at a time L3, L4, L5, S1also briefly mentioned left SI joint injectionPercocet 5 mg every 8 hours as neededWarned patient to be careful mixing multiple sedating medications including opioids, benzos, muscle relaxants, sleeping pills, alcohol, marijuana, etc.Major risks specifically discussed: addiction, overdose, deathDOH pamphlet given to patient and discussed non-opioid alternatives: NSAIDS, PT/Chiro, injections, massage, TENS, acupuncture, etcUDS: patient lost medication so not taking anything recently. Follow-upnext visitNarcanLyrica: Blurry vision. Cymbalta 30 mg dailyLunesta 1 mg nightly as neededCompound creamFollow up 1 month Related to Lumbar post-laminectomy syndrome Dietary management e ducation, guidance, and counseling Related to Body mass index (BMI) 28.0-28.9, adult Dietary needs education Related to Body mass index (BMI) 28.0-28.9, adult male history of lumb ar surgery status [place] status post emergent surgery L4-5 presents with low back pain with occasional radiation into his lower extremities since surgery. His main complaint today is low back pain with no radiation most of the time worse with back extension and rotation on exam. He has tried PT/physician directed home exercises for at least 6 weeks within the last 6 months for at least 3-4 days per week times one hour, NSAIDs, hydrocodone, oxycodone, gabapentin with side effectsCurrent medication regimen controlling patient's pain; more functional; no diversion/misuse, no side effects. He is complaining of worsening low back pain with no radiation worsened back extension and rotation on exam. Since last MBB patient has been doing physician directed home exercises for at least 6 weeks within the last 6 months 3-4 days per week times one hour, NSAIDS. Patient has functional limitations 2/2 pain.MRI lumbar spine reviewed with the patient shows multilevel disc herniations, stenosis, facet arthropathystatus post MBB bilateral L4, L5, S1 with 70% relief. He thinks I should go highersecond MBB bilateral L3, L4, L5 with fluoroscopic guidance. Risks and benefits reviewed. If the patient receives at least 50% pain relief, I will go ahead with RFAPatient will compare first block to second blockalso briefly mentioned left SI joint injectionPercocet 5 mg every 8 hours as neededWarned patient to be careful mixing multiple sedating medications including opioids, benzos, muscle relaxants, sleeping pills, alcohol, marijuana, etc.Major risks specifically discussed: addiction, overdose, deathDOH pamphlet given to patient and discussed non-opioid alternatives: NSAIDS, PT/Chiro, injections, massage, TENS, acupuncture, etcUDS: next visitNarcanLyrica: Blurry vision. Cymbalta 30 mg dailyLunesta 1 mg nightly as neededCompound creamFollow up 1 month Related to Lumbar post-laminectomy syndrome Dietary management e ducation, guidance, and counseling Related to Body mass index (BMI) 28.0-28.9, adult male history of lumb ar surgery status [place] status post emergent surgery L4-5 presents with low back pain with occasional radiation into his lower extremities since surgery. His main complaint today is low back pain with no radiation most of the time worse with back extension and rotation on exam. He has tried PT/physician directed home exercises for at least 6 weeks within the last 6 months for at least 3-4 days per week times one hour, NSAIDs, hydrocodone, oxycodone, gabapentin with side effectsCurrent medication regimen controlling patient's pain; more functional; no diversion/misuse, no side effects. He is complaining of worsening low back pain with no radiation worsened back extension and rotation on exam. He has tried PT/home exercises for at least 6 weeks within the last 6 months for at least 3-4 days per week times one hour, NSAIDs, opioids, gabapentin, Cymbalta. His pain gives him functional limitationsMRI lumbar spine reviewed with the patient shows multilevel disc herniations, stenosis, facet arthropathyMBB bilateral L4, L5, S1 with fluoroscopic guidance. Risks and benefits reviewed. If the patient receives at least 50% pain relief, I will go ahead with a second MBB. also briefly mentioned left SI joint injectionPercocet 5 mg every 8 hours as neededWarned patient to be careful mixing multiple sedating medications including opioids, benzos, muscle relaxants, sleeping pills, alcohol, marijuana, etc.Major risks specifically discussed: addiction, overdose, deathDOH pamphlet given to patient and discussed non-opioid alternatives: NSAIDS, PT/Chiro, injections, massage, TENS, acupuncture, etcUDS: next visitNarcanLyrica: Blurry vision. Cymbalta 30 mg dailyLunesta 1 mg nightly as neededCompound creamFollow up 1 month Related to Lumbar post-laminectomy syndrome Dietary management e ducation, guidance, and counseling Related to Body mass index (BMI) 28.0-28.9, adult male history of lumb ar surgery status [place] status post emergent surgery L4-5 presents with low back pain with occasional radiation into his lower extremities since surgery. His main complaint today is low back pain with no radiation most of the time worse with back extension and rotation on exam. He has tried PT/physician directed home exercises for at least 6 weeks within the last 6 months for at least 3-4 days per week times one hour, NSAIDs, hydrocodone, oxycodone, gabapentin with side effectsCurrent medication regimen controlling patient's pain; more functional; no diversion/misuse, no side effects. His radicular pain is okay at this point. He is complaining of worsening low back pain with no radiation worsened back extension and rotation on exam. He has tried PT/home exercises for at least 6 weeks within the last 6 months for at least 3-4 days per week times one hour, NSAIDs, opioids, gabapentin, Cymbalta. His pain gives him functional limitationsMRI lumbar spine reviewed with the patient shows multilevel disc herniations, stenosis, facet arthropathyMBB bilateral L4, L5, S1with fluoroscopic guidance. Risks and benefits reviewed. If the patient receives at least 50% pain relief, I will go ahead with a second MBB. also briefly mentioned left SI joint injectionPercocet 5 mg every 8 hours as neededMajor risks specifically discussed: addiction, overdose, deathDOH pamphlet given to patient and discussed non-opioid alternatives: NSAIDS, PT/Chiro, injections, massage, TENS, acupuncture, etcUDS: awaiting resultsNarcanLyrica: Blurry vision. Cymbalta 30 mg dailyLunesta 1 mg nightly as neededCompound creamFollow up 1 month Related to Lumbar post-laminectomy syndrome Dietary needs education Related to Body mass index (BMI) 26.0-26.9, adult Mr. Remy is seen to day for evaluation of his lumbar spine. He reports improvement in his radicular pain, however continues to have numbness in the left leg and left foot drop. He reports improvement in his right-sided radicular symptoms. He underwent subsequent I&D on 07/03/23 epidural abscess and his cultures are growing staph aureus, resistant only to penicillin. He had a PICC line and is completed 6 weeks of IV antibiotics. His wound is completely healed. he still has residual weakness in the left leg however this is also improving. He is in pain management with Dr. Hilario. We discussed treatment options including conservative care, injections, and surgery. After thorough discussion he elected to continue with his infectious disease doctor, will continue following with pain management, and I will see him back PRN. Related to Lumbar post-laminectomy syndrome Dietary needs education Related to Body mass index (BMI) 26.0-26.9, adult male history of lumb ar surgery status [place] status post emergent surgery L4-5 presents with low back pain with occasional radiation into his lower extremities since surgery. His main complaint today is low back pain with no radiation most of the time worse with back extension and rotation on exam. He has tried PT/physician directed home exercises for at least 6 weeks within the last 6 months for at least 3-4 days per week times one hour, NSAIDs, hydrocodone, oxycodone, gabapentin with side effectsCurrent medication regimen controlling patient's pain; more functional; no diversion/misuse, no side effects. His radicular pain is okay at this point. He is complaining of worsening low back pain with no radiation worsened back extension and rotation on exam. He has tried PT/home exercises for at least 6 weeks within the last 6 months for at least 3-4 days per week times one hour, NSAIDs, opioids, gabapentin, CymbaltaMRI lumbar spine reviewed with the patient shows multilevel disc herniations, stenosis, facet arthropathyMBB bilateral L4, L5, S1with fluoroscopic guidance. Risks and benefits reviewed. If the patient receives at least 50% pain relief, I will go ahead with a second MBB. also briefly mentioned left SI joint injectionincrease Percocet 5 mg every 8 hours as neededMajor risks specifically discussed: addiction, overdose, deathDOH pamphlet given to patient and discussed non-opioid alternatives: NSAIDS, PT/Chiro, injections, massage, TENS, acupuncture, etcUDS: follow-up next visitNarcanLyrica: Blurry vision. Cymbalta 30 mg dailyLunesta 1 mg nightly as neededCompound creamFollow up 1 month Related to Lumbar post-laminectomy syndrome Dietary management e ducation, guidance, and counseling Related to Body mass index (BMI) 26.0-26.9, adult Mr. Remy is seen to day for evaluation of his lumbar spine. He reports improvement in his radicular pain, however continues to have numbness in the left leg and left foot drop. He reports improvement in his right-sided radicular symptoms. His incision is healing nicely without evidence of erythema, drainage or infection. His sutures are still in place. He underwent subsequent I&D on 07/03/23 epidural abscess and his cultures are growing staph aureus, resistant only to penicillin. He currently has a PICC line and is receiving IV antibiotics. he was readmitted and subsequent MRI shows improvement in his severe stenosis and improvement in the epidural abscess, however there is still infection present. His wound is healing nicely. Today. He continues with his PICC line. We discussed treatment options including conservative care, injections, and surgery. After thorough discussion he elected to continue with his IV antibiotics, will followup with pain management, and I will refer him to infectious disease for monitoring as an outpatient. I will see him back in clinic in 4 weeks for assessment Related to Lumbar post-laminectomy syndrome Dietary needs education Related to Body mass index (BMI) 26.0-26.9, adult male history of lumb ar surgery status [place] status post emergent surgery L4-5 presents with low back pain with occasional radiation into his lower extremities since surgery. His main complaint today is low back pain with no radiation most of the time worse with back extension and rotation on exam. He has tried PT/physician directed home exercises for at least 6 weeks within the last 6 months for at least 3-4 days per week times one hour, NSAIDs, hydrocodone, oxycodone, gabapentin with side effectsCurrent medication regimen controlling patient's pain; more functional; no diversion/misuse, no side effectsMRI lumbar spine reviewed with the patient shows multilevel disc herniations, stenosis, facet arthropathyMBB left L4, L5, S1with fluoroscopic guidance. Risks and benefits reviewed. If the patient receives at least 50% pain relief, I will go ahead with a second MBB. also briefly mentioned left SI joint injectionPercocet 5 mg once daily as neededMajor risks specifically discussed: addiction, overdose, deathDOH pamphlet given to patient and discussed non-opioid alternatives: NSAIDS, PT/Chiro, injections, massage, TENS, acupuncture, etcUDS: awaiting resultsNarcanLyrica: Blurry vision. Start Cymbalta 30 mg dailyLunesta 1 mg nightly as neededCompound creamFollow up 1 month Related to Lumbar post-laminectomy syndrome Dietary management e ducation, guidance, and counseling Related to Body mass index (BMI) 26.0-26.9, adult Continue antibiotics per Dr. Durant through PICC line. Patient will follow up as scheduled with Dr. Richardson in 2 weeks. Related to Lumbar post-laminectomy syndrome Mr. Remy is seen to day for evaluation of his lumbar spine. He reports improvement in his radicular pain, however continues to have numbness in the left leg and left foot drop. He reports improvement in his right-sided radicular symptoms. His incision is healing nicely without evidence of erythema, drainage or infection. His sutures are still in place. He underwent subsequent I&D on 07/03/23 epidural abscess and his cultures are growing staph aureus, resistant only to penicillin. He currently has a PICC line and is receiving IV antibiotics. We discussed treatment options including conservative care, injections, and surgery. After thorough discussion he elected to continue with his IV antibiotics, will followup in a few days for suture removal, and I will refer him to pain management for medication. I will see him back in clinic in 2 weeks for assessment Related to Lumbar post-laminectomy syndrome Dietary needs education Related to Body mass index (BMI) 26.0-26.9, adult male history of lumb ar surgery status [place] status post emergent surgery L4-5 presents with low back pain with occasional radiation into his lower extremities since surgery. His main complaint today is low back pain with no radiation most of the time worse with back extension and rotation on exam. He has tried PT/physician directed home exercises for at least 6 weeks within the last 6 months for at least 3-4 days per week times one hour, NSAIDs, hydrocodone, oxycodone, gabapentin with side effectsMRI lumbar spine reviewed with the patient shows multilevel disc herniations, stenosis, facet arthropathyMBB bilateral L4, L5, S1with fluoroscopic guidance. Risks and benefits reviewed. If the patient receives at least 50% pain relief, I will go ahead with a second MBB. Percocet 5 mg once daily as neededOpioid agreement reviewed with patient and signed.Major risks specifically discussed: addiction, overdose, deathDOH pamphlet given to patient and discussed non-opioid alternatives: NSAIDS, PT/Chiro, injections, massage, TENS, acupuncture, etcUDS: follow up at next visit.NarcanLyrica 50mg titrated up to 150mg dailyCompound creamFollow up 1 month Related to Lumbar post-laminectomy syndrome Dietary management e ducation, guidance, and counseling Related to Body mass index (BMI) 26.0-26.9, adult Discussed risks and benefits of treatment plan. Related to Lumbar post-laminectomy syndrome Mr. Remy iis seen jose del angel for evaluation of his lumbar spine. He reports improvement in his radicular pain, however continues to have numbness in the lower legs and left foot drop. His incision has some erythema, however there is no drainage in the skin is healed. He has some swelling underneath the skin. His postoperative MRI shows no residual stenosis at L4-L5, however his most recent lumbar spine MRI shows a left-sided synovial cyst at L5-S1, prior right sided L5-S1 laminotomy, as well as superficial fluid collection above the fascia. There is no evidence of abscess underneath the fascia. He continues to smoke. We discussed treatment options including conservative care, injections, and surgery. After thorough discussion he elected to proceed with a referral to pain management to help control. His postoperative pain as well as to manage his lumbar facet disease. I will see him back in clinic in 2 weeks for assessment Related to Lumbar post-laminectomy syndrome Dietary needs education Related to Body mass index (BMI) 26.0-26.9, adult 3 wks s/p bilateral L4-5 laminotomy & foraminotomy by Dr. Richardson on 05/14/19. He reports he is having spasms and Elberon is not relieving pain. He presents with surgery follow up and pain. Patient continues to have low back pain and low back spasm and left leg pain. Patient has stopped his gabapentin due to chronic headaches and this has relieved the headache situation. He is asking for stronger pain medication then the Elberon given on his last visit. Discussed the use of opioids with the patient I have discussed the advantages and disadvantages of non-opioid alternatives if appropriate for the treatment of pain such as [id number] medications and physical therapy. The risk of taking prescribed opioid medications were discussed including but not limited to addiction, injury, overdose, and . The patient has been provided the approved [facility] educational pamphlet non-opioid alternatives.we'll give Percocet 5/325 #28 one tablet every 6 hours with no additional refills unless the patient is seen by pain management. Keflex 500 mg one by mouth every 8 7 days Bactrim DS 1 by mouth twice a day 7 days. Patient will return in 1 week for wound check. Patient is demonstrating erythema of the incision without active drainage. Related to Lumbar radiculopathy 2 wks s/p bilateral L4-5 laminotomy & foraminotomy by Dr. Richardson on 05/14/19. The posterior lumbar incision is healing well. Motor strength is 5 over 5 bilaterally. Patient is requesting additional pain medication and muscle relaxants. Patient continues to have left lower extremity radicular complaints he is also having left-sided lumbar spasm. His exam demonstrates no evidence of focal weakness. Sensory exam is intact. Flexeril 10 mg by mouth twice a day #30 Elberon No. 28 5/325 one tablet every 6 hours for pain control.gabapentin 300 mg 1 by mouth 3 times a day #60. Patient is also complaining about chronic frontal headaches since the time of the surgery. He states these are significant. We'll refer to neurology for workup. Related to Lumbar radiculopathy Assessments Type Assessment Date No Information Patient Care Teams Name Effective Dates (start - stop) Status Members No Information
[2024-12-27 18:21] VITALS: BP 153/97; PULSE 98; RESP 20; TEMP 36.7; O2SAT 97
--- NOTE | 2024-12-27 18:22 | ED_ITS ---
HPI - General Adult 2 General: Chief complaint: Urogenital-Male Stated complaint: Possible Kidney Stones Time Seen by Provider: 12/27/24 18:21 History of Present Illness: 59-year-old male presents emergency room complaining of low back pain radiating from his left flank down to the groin that began suddenly this afternoon around 4 PM. Patient has had multiple kidney stones in the past states this feels like what he had in the past with a kidney stone. Denies dysuria urgency or frequency denies hematuria. No recent trauma. Associated symptoms: Deny chest pain, dyspnea or rash Related Data Home Medications ?Medication ?Instructions ?Recorded ?Confirmed sotalol 80 mg tablet 80 mg PO BID 12/04/23 Previous Rx's ?Medication ?Instructions ?Recorded albuterol sulfate 2.5 mg/3 mL 2.5 mg (3 mL) inhalation QID #75 mL 12/04/23 (0.083 %) solution for nebulization gulcometer, stips, and lancets #1 ea 03/25/24 atorvastatin 20 mg tablet (Lipitor) 20 mg PO DAILY cho lesterol #90 tabs 06/02/24 gabapentin 100 mg capsule 100 mg PO BID #60 caps 06/02 apixaban 5 mg tablet (Eliquis) 5 mg PO BID #60 tabs glimepiride 1 mg tablet 1 mg PO QAM #90 tabs 5 metformin 500 mg tablet,extended 500 mg PO BID #60 tab s 10/14/24 release 24 hr hydrocodone 5 mg-acetaminophen 325 1 tab PO Q6H PRN pa in #12 tabs 11/14/24 mg tablet citalopram 20 mg tablet (Celexa) 20 mg PO DAILY #30 ta bs 11/17/24 cyclobenzaprine 10 mg tablet 10 mg PO BID PRN muscle s pasm #180 11/19/24 tabs fluticasone propionate 50 1 spray intranasal BID #16 g dominique 11/19/24 mcg/actuation nasal spray,suspension (Flonase Allergy Relief) diclofenac sodium 75 mg 75 mg PO Q12H PRN pain #20 t abs 12/27/24 tablet,delayed release prednisone 20 mg tablet 20 mg PO TID #15 tabs tizanidine 4 mg tablet 4 mg PO Q6H PRN muscle spast icity 12/27/24 #20 tabs Allergies Allergy/AdvReac Type Severity Reaction Status Date / Time No Known Allergies Allergy Verified 11/19/24 13:51 Review of Systems 2 Const: Denies: fever(s) or chills Card: Denies: chest pain Resp: Denies: dyspnea GI: Denies: abdominal pain : Denies: dysuria, urinary frequency, urinary urgency or hematuria Musc: Denies: neck pain or back pain Skin/Breast: Denies: rash PFSH ED 2 PFSH: Medical History Nephrolithiasis Mixed hyperlipidemia Alcohol abuse Chronic hyponatremia Low testosterone in male 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 Chronic back pain greater than 3 months duration 5 back surgeries; has had injections; has been on opiates in past Nicotine dependence, cigarettes, with other nicotine-induced disorders LDCT 3.08.21 done--repeat one year Hx of hepatitis C treated and cleared with antiviral Generalized anxiety disorder Syncope Other male erectile dysfunction Diabetes mellitus Depression Nocturia COPD (chronic obstructive pulmonary disease) Atrial fibrillation Pacemaker 2023 Surgical History Hx of cardiac pacemaker placed 2023 by [facility] of [facility] Hx of colonoscopy 2018--in [place]; normal History of lumbar surgery has had 5 surgeries Family History Father Congestive heart failure (CHF) Mother Heart disease Diabetes Brother Diabetes Social History Smoking and tobacco/nicotine status: current every day tobacco/nicotine user cigarettes Packs smoked per day: 1 [ Other cigarette details: started age 12] Alcohol intake: current Alcohol intake frequency: 3 or more drinks per day Alcohol type: beer Substance/Drug Use: former Date of last use: last use 40yrs ago Former substance use details: 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 Household members: spouse Marital status: Number of children: 2 Highest education level completed: GED or Equivalent Current occupational status: disabled 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; 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 Physical Exam 2 Const: GENERAL APPEARANCE: cooperative ORIENTATION/CONSCIOUSNESS: Yes awake, Yes oriented to person, Yes oriented to place and Yes oriented to time HENMT: COMMON NORMALS: normocephalic, atraumatic and hearing grossly normal bilaterally HEAD & SCALP: normocephalic and atraumatic Resp: COMMON NORMALS: normal respiratory effort, No retractions, No use of accessory muscles and clear to auscultation bilaterally AUSCULTATION: clear to auscultation bilaterally Cardio: COMMON NORMALS: regular rate, regular rhythm and No murmurs present (Cardio) RATE: regular rate RHYTHM: regular rhythm GI: COMMON NORMALS: Soft to palpation and No hepatosplenomegaly present A USCULTATION: Yes normoactive bowel sounds PALPATION: Yes Soft to palpation, No Tenderness to palpation present (GI), No Guarding due to palpation present (GI) and Yes No hepatosplenomegaly present Back/Pelvis: OTHER: Left CVA tenderness Extremity: COMMON NORMALS: normal to inspection, capillary refill normal, no clubbing, cyanosis or edema, no calf tenderness and no pedal edema Neuro: SENSORIUM/ORIENTATION: Yes oriented to person, Yes oriented to place and Yes oriented to time Skin: COMMON NORMALS: no rashes or lesions noted GENERAL SKIN EXAM: no rashes or lesions noted Course 2 Vital Signs: Vital signs: Vital Signs Temperature 98.1 F 12/27/24 18:21 Pulse Rate 90 12/27/24 20:03 Respiratory Rate 18 12/27/24 20:03 Blood Pressure 136/86 12/27/24 20:03 Pulse Oximetry 96 12/27/24 20:03 Oxygen Delivery Me thod Room Air 12/27/24 20:03 [facility] - General Adult Medical Decision Making Patient is much improved. He says the pain is gone and sounds like a more of a spasmatic like back pain when he first arrived he was having's pretty significant pain he said it felt like his previous kidney stone we did address as such but the CT and the urine did not show evidence of stone. Will discharge him home on prednisone taper tizanidine and diclofenac use. He said chronic back issues and he has follow-up with Dr. Andrews recommend he complete that is planned Medical Records I reviewed the patient's medical records. Lab Data I reviewed the patient's lab results. 12/27/24 18:36 12/27/24 18:36 Radiology Impressions Abdomen/Pelvis CT 12/27/24 18:31 IMPRESSION: No acute findings. Laboratory Results WBC 8.50 10^3/uL (3.29-11.43) 12/27/24 18:36 RBC 4.60 10^6/uL (3.85-5.65) 12/27/24 18:36 Hgb 14.60 g/dL (11.27-16.99) 12/27/24 18:36 Hct 39.6 % (37-53) 12/27/24 18:36 MCV 86.1 fl (82-101) 12/27/24 18:36 MCH 31.7 pg (27-33) 12/27/24 18:36 MCHC 36.9 g/dL (30-55) 12/27/24 18:36 RDW 12.0 % (12.1-15.1) L 12/27/24 18:36 Plt Count 234 10^3/cmm (157-399) 12/27/24 18:36 MPV 9.0 fL (7.4-10.4) 12/27/24 18:36 Neut % (Auto) 39.6 % 12/27/24 18:36 Lymph % (Auto) 49.9 % 12/27/24 18:36 [place] % (Auto) 7.1 % 12/27/24 18:36 Eos % (Auto) 2.4 % 12/27/24 18:36 Baso % (Auto) 0.9 % 12/27/24 18:36 Neut # (Auto) 3.37 10^3/uL (1.8-7.7) 12/27/24 18:36 Lymph # (Auto) 4.2 10^3/uL (0.8-4.8) 12/27/24 18:36 [place] # (Auto) 0.6 10^3/uL (0.2-0.9) 12/27/24 18:36 Eos # (Auto) 0.2 10^3/uL (0.0-0.8) 12/27/24 18:36 Baso # (Auto) 0.1 10^3/uL (0.0-0.1) 12/27/24 18:36 Nucleated RBC % (auto) 0 % 12/27/24 18:36 Nucleated RBCs # 0.0 /100WBC 12/27/24 18:36 Sodium 137 mmol/L (136-145) 12/27/24 18:36 Potassium 4.1 mmol/L (3.5-5.1) 12/27/24 18:36 Chloride 98 mmol/L (98-107) 12/27/24 18:36 Carbon Dioxide 23 mmol/L (22-29) 12/27/24 18:36 Anion Gap 20.1 (5-19) H 12/27/24 18:36 BUN 9 mg/dL (8-23) 12/27/24 18:36 Creatinine 0.9 mg/dL (0.7-1.2) 12/27/24 18:36 GFR Calculation 85.8 mL/min (90-130) L 12/27/24 18:36 Glucose 132 mg/dL (65-115) H 12/27/24 18:36 Calculated Osmolality 285 mOsm/kg (285-295) 12/27/24 18:36 Calcium 9.1 mg/dL (8.5-10.5) 12/27/24 18:36 Urine Color Yellow (Yellow) 12/27/24 18:30 Urine Appearance Clear (CLEAR) 12/27/24 18:30 Urine pH 6.5 (5-7) 12/27/24 18:30 Ur Specific [place] 1.003 (1.005-1.030) L 12/27/24 18:30 Urine Protein Negative (Negative) 12/27/24 18:30 Urine Glucose (UA) Negative (Normal) 12/27/24 18:30 Urine Ketones Negative (Negative) 12/27/24 18:30 Urine Blood Negative (Negative) 12/27/24 18:30 Urine Nitrate Negative (Negative) 12/27/24 18:30 Urine Bilirubin Negative (Negative) 12/27/24 18:30 Urine Urobilinogen 0.2 mg/dL (Negative) 12/27/24 18:30 Ur Leukocyte Esterase Negative (Negative) 12/27/24 18:30 Urine RBC 0-2 /hpf (0-2) 12/27/24 18:30 Urine WBC 0-5 /hpf (0-5) 12/27/24 18:30 Ur Squamous Epith Cells 0-5 /hpf (0-5) 12/27/24 18:30 Amorphous Sediment Not Reportable 12/27/24 18:30 Urine Bacteria None seen /hpf (NONE) 12/27/24 18:30 Hyaline Casts 0-4 /lpf H 12/27/24 18:30 All radiology interpretation(s) finalized by discharge Discharge Plan Discharge Patient Disposition: Home Clinical Impression: Back pain Condition: Stable Prescriptions: New tizanidine 4 mg tablet 4 mg PO Q6H PRN (Reason: muscle spasticity) Qty: 20 0RF Rx Instructions: do not exceed 3 doses per 24 hrs prednisone 20 mg tablet 20 mg PO TID Qty: 15 0RF Rx Instructions: 1 p.o. 3 times daily x3 days, 1 p.o. twice daily x2 days, 1 p.o. daily x2 days diclofenac sodium 75 mg tablet,delayed release (DR/EC) 75 mg PO Q12H PRN (Reason: pain) Qty: 20 0RF No Action sotalol 80 mg tablet 80 mg PO BID albuterol sulfate 2.5 mg /3 mL (0.083 %) solution for nebulization 2.5 mg inhalation QID Qty: 75 0RF gabapentin 100 mg capsule 100 mg PO BID Qty: 60 2RF atorvastatin [Lipitor] 20 mg tablet 20 mg PO DAILY Qty: 90 1RF cyclobenzaprine 10 mg tablet 10 mg PO BID PRN (Reason: muscle spasm) Qty: 180 1RF fluticasone propionate [Flonase Allergy Relief] 50 mcg/actuation spray,suspension 1 spray intranasal BID Qty: 16 2RF Rx Instructions: administer into each nostril (DME) gulcometer, stips, and lancets See Rx Instructions .Route .MEDSUPPLY Qty: 1 0RF Rx Instructions: As directed Eliquis 5 mg tablet 5 mg PO BID Qty: 60 2RF glimepiride 1 mg tablet 1 mg PO QAM Qty: 90 0RF Rx Instructions: administer with breakfast metformin 500 mg tablet extended release 24 hr 500 mg PO BID Qty: 60 2RF citalopram [Celexa] 20 mg tablet 20 mg PO DAILY Qty: 30 2RF hydrocodone-acetaminophen 5-325 mg tablet 1 tab PO Q6H PRN (Reason: pain) Qty: 12 0RF Discharge Orders: Discharge ED (Routine); Ordered 12/27/24 Ordered By: Flavio Skinner Referrals: Yuki Mahan MD [Primary Care Provider, Family Practice] Discharge Diet: Usual diet Discharge Activity: Increase activity as tolerated Patient Instructions: Opioid Safety, Pain Management, Patient Portal & Dena Instructions Activity Restrictions/Additional Instructions: Thank you for choosing [email or web address] for your healthcare needs today. It is very important that you follow up as instructed or that you return to the Emergency Department should you have concerns or if your condition changes or worsens in any way. Emergency department visits are focused on emergent conditions, in some cases you may require further evaluation on an outpatient basis. You are seen in the emergency room with a complaint of left-sided back pain and flank pain. Your initial presentation was suggestive because of your history of a kidney stone however the CT does not show any kidney stones and there is no sign of blood in your urine suggestive of a kidney stone. Your pain did improve with pain medications given suspect this is musculoskeletal in nature the rest of the CT was unremarkable labs likewise did not show any significant abnormality. Will discharge you home with a steroid taper muscle relaxer and anti-inflammatory follow-up with your primary care doctor. (Please note that included in your discharge packet is information concerning opioid safety and pain management. This information is given to all patients were discharged from the ER regardless of their discharge diagnosis or the medicines they usually take or are prescribed.) Print Language: [place] Coding Level of Care Code ED Casino Floorperson for Colleen Vaughan
[2024-12-27 18:30] VITALS: BP 142/84; PULSE 95; RESP 20; O2SAT 95
--- NOTE | 2024-12-27 18:31 | CTR_ITS ---
PROCEDURE INFORMATION: Exam: CT Abdomen And Pelvis Without Contrast Exam date and time: 12/27/2024 6:48 PM Age: 59 years old Clinical indication: Abdominal pain; Prior surgery; Surgery date: 6+ months; Surgery type: Pacer. Lumbar fusion; Left flank pain with dysuria TECHNIQUE: Imaging protocol: Computed tomography of the abdomen and pelvis without contrast. Radiation optimization: All CT scans at this facility use at least one of these dose optimization techniques: automated exposure control; mA and/or kV adjustment per patient size (includes targeted exams where dose is matched to clinical indication); or iterative reconstruction. COMPARISON: CR XR lumbar spine 2-3V* [id number] 05/15/2024 7:23 PM RADIATION DOSE METRICS: Total DLP (mGy-cm): 703.13 FINDINGS: Liver: Normal. No mass. Gallbladder and biliary ducts: Normal. No calcified stones. No ductal dilation. Pancreas: Normal. No ductal dilation. Spleen: There are multiple punctate splenic calcifications consistent with old granulomatous disease. Adrenal glands: Normal. No mass. Kidneys and ureters: Normal. No hydronephrosis. Stomach and bowel: Unremarkable. No obstruction. No mucosal thickening. Appendix: No evidence of appendicitis. Intraperitoneal space: Unremarkable. No free air. No significant fluid collection. Vasculature: Unremarkable. No abdominal aortic aneurysm. Lymph nodes: One or more calcified pulmonary, hilar and/or mediastinal lymph nodes are observed consistent with old granulomatous disease. Urinary bladder: Unremarkable as visualized. Reproductive: Unremarkable as visualized. Bones/joints: Status post anterior and posterior fusion and decompression L4-S1. Soft tissues: Unremarkable. CT/CT kidney stone [id number] IMPRESSION: No acute findings.
--- OUTSIDE RECORDS SUMMARY | 2024-12-27 18:36 | XMS_ITS | Patient Health Record ---
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 confirmed Problem Information temporarily unavailable Other chronic pain (G89.29) Active confirmed Problem Information temporarily unavailable Cigarette nicotine dependence without complication (F17.210) Active confirmed Problem Information temporarily unavailable Postlaminectomy syndrome, not elsewhere classified (M96.1) 02/15/20 Active confirmed Problem Information temporarily unavailable Acute bilateral low back pain without sciatica (M54.50) 02/15/20 Active confirmed Plan Of Treatment No Information Insurance Providers Payer Name Payer Address Payer Phone Subscriber Number Group Number Insured Name Patient Relationship to Insured Coverage Start Date Coverage End Date Medicare Part B [facility] [address] [address] [facility] [place] [id number] MAYDA WEINBERG Self - patient is the insured Medical (General) History Surgical History Surgery Date(Month/Year) x5 back
--- OUTSIDE RECORDS SUMMARY | 2024-12-27 18:37 | XMS_ITS | Patient Health Record ---
Author Organization [facility] Address [address] [place], [place] [id number] Care Team Providers Care Pc Maintenance Technician Name Role Phone Kalli VANG, Yuki Primary Care Provider Audrey Bunn MD, Gatito Unavailable [phone] Ward METER CHANGES RECORDS CLERKFaye Unavailable [phone] Allergies No Known Allergies Results Component Value [...] icine Referred Organization [facility] [employer] Referred Provider Gatito Bunn Referred Address [address] [place], [id number], Referred Provider Specialty Pain Managem ent General Notes Vale Morales 01/2025 10:40:56 AM >Sent for insurance verification. Need SSN also., Emi Balderrama 06/08/2024 10:49:04 AM >ACTIVE. $30.00 COPAY. Vale Morales 06/10/2024 04:06:05 PM >Mailbox is full and cannot accept messages. Will mail letter tomorrow if patient does not respond to missed call., Andrew Vale 06/11/2024 08:59:26 AM >Mailed letter. Referral Priority Routine Reason Sleep Study (80445)/ CPAP Titration Study (75266) as appropriate Diagnosis 1 Hypersomnia, unspeci fied (G47.10) Referral Organization [facility] Referring Provider First Name Gatito Referring Provider Last Name Sepideh Referring Provider Speciality Pain Manag ement Referred Provider Lab, Sleep General Notes CPT code 45238 appro abe at [facility]; Authorization number, [employer] - [id number]; Dates of service, 07/17/2024 - 09/15/2024, Sara Son 07/20/2024 11:01:48 AM > referral faxed, Sara Son 07/27/2024 03:05:26 PM > spoke with Dianne at [facility] - patient is scheduled as above Referral Priority Routine Referral Appointment Date 08/17/2024 Medications Medication SIG (Take, Route, Frequency, Duration) Notes Start Date End Date Status citalopram 20 mg 1 tab(s) orally once a day Active oxyCODONE 10 mg 1 tab orally Q4-6H p rn pain (max 3/day; hold within 4H of planned sleep); Duration: 28 days ICD-10: G89.29 08/26/2024 Active glimepiride 1 mg 1 tab(s) orally once a day Active oxyCODONE 10 mg 1 tab orally Q4-6H p rn pain (max 3/day; hold within 4H of planned sleep); Duration: 28 days Do not fill prior to 10/21/24. ICD-10: G89.29 08/26/2024 Active metFORMIN 500 mg 1 tab(s) orally 2 ti mes a day Active sotalol 80 mg 1 tab(s) orally 2 ti mes a day Active oxyCODONE 10 mg 1 tab orally Q4-6H p rn pain (max 3/day; hold within 4H of planned sleep); Duration: 28 days Do not fill prior to [...] Status Risk Notes Problem Information temporarily unavailable Sacroiliitis, not elsewhere classified (M46.1) Active confirmed Problem Information temporarily unavailable residential (current) use of opiate analgesic (Z79.891) Active confirmed Problem Information temporarily unavailable Hypersomnia, unspecified (G47.10) Active confirmed Problem Information temporarily unavailable Other sleep disorders (G47.8) Active confirmed Problem Information temporarily unavailable Other chronic pain (G89.29) Active confirmed Problem Information temporarily unavailable Essential (primary) hypertension (I10) Active confirmed Problem Information temporarily unavailable Dorsalgia, unspecified (M54.9) Active confirmed Problem Information temporarily unavailable Postlaminectomy syndrome, not elsewhere classified (M96.1) Active confirmed Problem Information temporarily unavailable Other fci (current) drug therapy (Z79.899) Active confirmed Problem Information temporarily unavailable Other specified postprocedural states (Z98.890) Active confirmed Problem Information temporarily unavailable Vertebrogenic low back pain (M54.51) Active confirmed Vital Signs Temperature 97.6 degrees Fahrenheit 08/26/2024 Oximetry 97 % 08/26/2024 Blood pressure diastolic 100 mm Hg 08/26/2024 Height 70 in 08/26/2024 Blood pressure systolic 157 mm Hg 08/26/2024 Weight 184.4 lbs 08/26/2024 BMI 26.46 kg/m2 08/26/2024 Encounters Encounter Location Date Provider Diagnosis [facility] [address] [place] [id number] 07/06/2024 Faye Ward Vertebrogenic low ba ck pain M54.51 ; Postlaminectomy syndrome, not elsewhere classified M96.1 ; Sacroiliitis, not elsewhere classified M46.1 ; Essential (primary) hypertension I10 ; Other sleep disorders G47.8 and Other fci (current) drug therapy Z79.899 [facility] [address] [place] [id number] 07/16/2024 Gatito Bunn Vertebrogenic low ba ck pain M54.51 ; Other chronic pain G89.29 ; Postlaminectomy syndrome, not elsewhere classified M96.1 ; Essential (primary) hypertension I10 ; Hypersomnia, unspecified G47.10 and Other fci (current) drug therapy Z79.899 [facility] [address] [place] [id number] 08/26/2024 Gatito Bunn Vertebrogenic low ba ck pain M54.51 ; Other chronic pain G89.29 ; Essential (primary) hypertension I10 ; Hypersomnia, unspecified G47.10 and terminologist (current) use of opiate analgesic Z79.891 Assessments [...] would be at patient's increased risk. 08/26/2024 residential (current) use of opiate analgesic (ICD-10 - [...] in the high risk category. 07/16/2024 Other terminal gauger supervisor (current) drug therapy (ICD-10 - Z79.899) Patient [...] outside lab for definitive testing. 07/06/2024 Other fci (current) drug therapy (ICD-10 - Z79.899) Patient [...] clinic is closing due to Dr. Bunn's detention; see scanned document. Terminal prescriptions were given [...] Insured Coverage Start Date Coverage End Date [employer] [address] [address] [place] [address] [id number] Reji Remy Self - patient is the [...] History Surgery Date(Month/Year) Lumbar laminectomy, performed in [place], [place] by Dr. Erick Parra, 1994 Colonoscopy, performed in [place], 2018 Revision of laminectomy, per formed at [facility] in [place], [place], by Dr. Richardson, 2019 L4-5, L5-S1 fusion / fixatio n, performed at [facility] in [place], [place], 2020 Revision of fusion, performe d at [facility] in [place], [place], 2021 Placement of pacemaker, perf ormed at [facility] by Dr. Rhodes, 2023 Hospitalization History Reason Date(Month/Year) Kidney stones, treated at [facility], 2019
[2024-12-27 18:38] VITALS: RESP 22; O2SAT 95
[2024-12-27] MEDS: ondansetron 2 mg/ML SDV 2 mL 4 MG IVP (18:38)
[2024-12-27] MEDS: morphine 4 mg/mL SDV 1 mL IVP ×2 (18:38→19:03)
[2024-12-27 18:46] LABS: Hematocrit 39.6 % (37-53); Hemoglobin 14.60 g/dL (11.27-16.99); Mean Corpuscular HGB Conc 36.9 g/dL (30-55); Mean Corpuscular Hemoglobin 31.7 pg (27-33); Mean Corpuscular Volume 86.1 fl (82-101); Nucleated Red Blood Cells % 0 %; Platelet Count 234 10^3/cmm (157-399); Red Blood Count 4.60 10^6/uL (3.85-5.65); White Blood Count 8.50 10^3/uL (3.29-11.43)
[2024-12-27 18:46] LABS: Glucose Urine UA Negative (Normal); Nitrate Urine Negative (Negative); Specific Gravity, Urine 1.003 (1.005-1.030)
[2024-12-27 18:51] LABS: Add Urine Microscopic? YES
[2024-12-27 19:01] LABS: Anion Gap 20.1 (5-19); Blood Urea Nitrogen 9 mg/dL (8-23); Calcium 9.1 mg/dL (8.5-10.5); Carbon Dioxide 23 mmol/L (22-29); Chloride 98 mmol/L (98-107); Glucose 132 mg/dL (65-115); Osmolality Calculated 285 mOsm/kg (285-295); Potassium 4.1 mmol/L (3.5-5.1); Sodium 137 mmol/L (136-145)
[2024-12-27 19:03] VITALS: RESP 20; O2SAT 96
[2024-12-27 20:03] VITALS: BP 136/86; PULSE 90; RESP 18; O2SAT 96
[2024-12-27] MEDS: HYDROmorphone 0.5 MG/0.5 ML INJ IVP (20:05)
[2024-12-27] MEDS: methylPREDNISolone sod succ 125 mg/2 mL INJ IVP (20:24)
--- NOTE | 2024-12-27 20:29 | ECG_ITS ---
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 Measurements Intervals [place] Rate: 87 P: 55 AR: 161 QRS: 37 QRSD: 99 T: 54 QT: 383 QTc: 462 Interpretive Statements SINUS RHYTHM Compared to ECG 05/15/2024 18:57:36 no significant change Electronically Signed On 12-27-2024 21:31:45 CDT by Myke Francois M.D. [email or web address]
== END 2024-12-27 22:01 | disposition home or self-care (01) ==
PROVIDERS: Emergency Provider Family Medicine; PCP Family Medicine
DX: M54.9 Dorsalgia, unspecified (principal)
CPT/HCPCS: 36415; 74176; 80048; 81001; 85025; 93005; 96361; 96374; 96375; 96376; 99285; J1171; J2270; J2405; J2919; J7030

== ENCOUNTER 2025-01-07 18:21 | Emergency (ER) | payer MEDICARE, SELFPAY ==
--- OUTSIDE RECORDS SUMMARY | 2020-06-05 19:00 | XMS_ITS | Continuity of Care Document ---
Author Organization [facility] o[facility] Address [address] [place] [address] Phone Care Team Providers Care Solar[employer] Name Role Phone Waylon Holder MD Unavailable [...] Procedure Date Medical Records Fee Office/outpatient visit, [facility] Advance Directives Directive Yes / No Effective Date File Name No Information Encounters Encounter Description Practice Location Reason(s) For Visit Diagnoses Date Provider Providers Copied on Encounter [facility], [address], [place], [place], [address], tel:[phone] [email or web address] [email or web address] [facility] No Information 1 Glory Connors. [address], [place], [place], [address] , . tel: [phone] Referring Provider: Referred Self. Office/outpat ient visit, [facility], [address], [place], [place], [address], tel:[phone] [place] [facility] Freeform HPI (chief complaint) Hx TIA/stroke w/o residHistory of chest pain at restBorderline hypertension 0 Glory Connors. [address], [place], [place], [address] , [place]. tel: [phone] Referring Provider: Referred Self. [facility], [address], [place], [address], tel:[phone] [facility] No Information 0 Glory Connors. [address], [place], [address] , . 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 He [...]
--- OUTSIDE RECORDS SUMMARY | 2022-05-30 19:00 | XMS_ITS | Continuity of Care Document ---
Author Organization [facility] Address [address] [place] [address] Phone Care Team Providers Care Ceramic Designer Name Role Phone Carmelo Hale MD Unavailable [...] Procedures Procedure Date CONFERENCE With Atty Or Beam Department Supervisor 2022 Deposition In House Deposition In House CONFERENCE With Atty Or Beam Department Supervisor 2022 Copies Medical Records/Xrays Postop followup visit [...] Level Jun Open bone biopsy, lumbar/cervical Office/outpatient visit,new mod 2019 Postop followup visit Postop followup visit Postop followup visit Office/outpatient visit,umer mod 2019 Laminectomy/foraminotomy Laminectomy/foraminotomy Advance Directives Directive Yes / No Effective Date File Name No Information Encounters Encounter Description Practice Location Reason(s) For Visit Diagnoses Date Provider Providers Copied on Encounter [facility], [address], [place], [place], [address], tel:[phone] Miscellaneou s-Legal No Information 3 Geoffrey Rhodes. 1050 [facility], [address], [id number], . tel:[phone] Referring Provider: Carmelo Hale MD, [address], [address]. tel:[phone] [facility], [address], [place], [place], [address], tel:[phone] Miscellaneou s-Legal No Information 3 Debra Montilla. [address], [id number], . tel:[phone] Referring Provider: Roldan Richardson MD, [address], [address]. tel:[phone] [facility], [address], [place], [place], [address], tel:[phone] Miscellaneou s-Legal No Information 3 Geoffrey Rhodes. 1050 [facility], [facility] [address], [address], . tel:[phone] Referring Provider: Carmelo Hale MD, 1050 [facility] [address], [address]. tel:[phone] [facility], [address], [place], [place], [address], tel:[phone] Thao s-Legal No Information 3 Debra VANG Roldan. [address] [facility], [address], [address], . tel:[phone] Referring Provider: Roldan Richardson MD, [address] [facility] [address], [place], [address]. tel:[phone] [facility], [address], [address], tel:[phone] Thao s-Medical Records No Information 2 Debra VANG [facility] [place]. [address] [facility], [facility] [address], [address], . tel:[phone] Referring Provider: Roldan Richardson MD, [address] [facility] [address], [place], [address]. tel:[phone] [facility], [address], [place], [place], [address], tel:[phone] [facility] 400 lumbar spine (chief complaint) Lumbar radiculopathy 2 Cristiano Mai. 10[address] [facility], [address], [place], [place], [address], . tel:[phone] Referring Provider: Carmelo Hale MD, [address] [facility] [address], [place], [address]. tel:[phone] Office/outpa tient visit,est, [facility], [address], [place], [place], [address], tel:[phone] [facility] 204 lumbar spine (chief complaint) Facet arthritis of lumbar regionLumbar post-laminect maciel syndromeEncou nter for therapeutic drug level monitoringLon g term (current) use of opiate analgesic 2 Khris Wharton. [address], [address], [place], [place], [address], [place]. tel:[phone] Referring Provider: Dio Pinedo MD, [address], [place], [address]. tel:[phone] [facility], [address], [place], [place], [address], [place] tel:[phone] [facility] No Information 2 Geoffrey Rhodes. [address], [address], [place], [place], [address], [place]. tel:[phone] Referring Provider: Carmelo Hale MD, [address], [place], [address]. tel:[phone] Office/outpa tient visit,[facility], [address], [place], [place], [address], [place] tel:[phone] [facility] [address] lumbar spine (chief complaint) Facet arthritis of lumbar regionLumbar post-laminect maciel syndromeLong term (current) use of opiate analgesicEnco unter for therapeutic drug level monitoring 2 Khris Wharton. [address], [address], [place], [place], [address], [place]. tel:[phone] Referring Provider: Dio Pinedo MD, [address], [place], [address]. tel:[phone] Office/outpa tient visit,[facility], [address], [place], [place], [address], [place] tel:[phone] [facility] [address] lumbar spine (chief complaint) Spinal stenosis, lumbar region with neurogenic claudicationL umbar radiculopathy Hx MRSA infection 2 Cristiano Mai. [address], [address], [place], [place], [address], . tel:[phone] Referring Provider: Carmelo Hale MD, [address]50 [facility] [address], [place], [address]. tel:[phone] Office/outpa tient visit,est, [facility], [address], [place], [place], [address], tel:[phone] [facility] 400 lumbar spine (chief complaint) Lumbar post-laminect maciel syndromeNeura l foraminal stenosis of lumbosacral spineSpinal stenosis, lumbar region with neurogenic claudicationN eural foraminal stenosis of lumbar spine 2 Geoffrey Rhodes. [address] [facility], [address], [place], [place], [address], . tel:[phone] Referring Provider: Carmelo Hale MD, [address] [facility] [address], [place], [address]. tel:[phone] [facility], [address], [place], [place], [address], tel:[phone] [facility] s-Medical Records No Information 2 Debra Montilla. [address] [facility], [facility] [address], [address], . tel:[phone] Referring Provider: Roldan Richardson MD, [address] [facility] [address], [place], [address]. tel:[phone] [facility], [address], [place], [place], [address], tel:[phone] [facility] 204 lumbar spine pain (chief complaint) Facet arthritis of lumbar regionLong term (current) use of opiate analgesicLumb ar post-laminect maciel syndrome 2 Khris Wharton. [address], [address], [place], [place], [address], [place]. tel:[phone] Referring Provider: Dio Pinedo MD, [address], [place], [address]. tel:[phone] Office/outpa tient visit,[facility], [address], [place], [place], [address], [place] tel:[phone] [place] [address] lumbar spine (chief complaint) Lumbar post-laminect maciel syndromeNeura l foraminal stenosis of lumbosacral spineSpinal stenosis, lumbar region with neurogenic claudicationN eural foraminal stenosis of lumbar spine 2 Geoffrey Rhodes. [address], [address], [place], [place], [address], [place]. tel:[phone] Referring Provider: Carmelo Hale MD, [address], [place], [address]. [phone] Office/outpa tient visit,[facility], [address], [place], [place], [address], [place] tel:[phone] [place] [address] lumbar spine (chief complaint) halfway (current) use of opiate analgesicEnco unter for therapeutic drug level monitoringFac et arthritis of lumbar region Apr-0 2 Amparo Silva. [address], [address], [place], [place], [address], [place]. tel:[phone] Referring Provider: Shira Donohue, [address], [place], [address]. tel:[phone] Office/outpa tient visit,[facility], [address], [place], [place], [address], [place] tel:[phone] [facility] 204 lumbar spine (chief complaint) halfway (current) use of opiate analgesicFace t arthritis of lumbar regionSpinal stenosis, lumbar region with neurogenic claudication 2 Amparo Silva. [address], [address], [place], [place], [address], [place]. tel:[phone] Referring Provider: Shira Donohue, [address], [place], [address]. tel:[phone] [facility], [address], [place], [place], [address], [place] tel:[phone] [facility] 400 lumbar spine (chief complaint) Lumbar radiculopathy 1 Candido Oh. [address], [address], [place], [place], [address], [place]. tel:[phone] Referring Provider: Carmelo Hale MD, [address], [place], [address]. tel:[phone] [facility], [address], [place], [place], [address], [place] tel:[phone] [facility] s-Medical Records No Information 1 Geoffrey Rhodes. [address], [address], [place], [place], [address], [place]. tel:[phone] Referring Provider: Carmelo Hale MD, [address], [place], [address]. tel:[phone] [facility], [address], [place], [place], [address], [place] tel:[phone] [place] [address] No Information 1 Rogelio Cortez. [address], [address], [place], [place], [address], [place]. tel:[phone] Referring Provider: Carmelo Hale MD, [address], [place], [address]. [phone] [facility], [address], [place], [place], [address], [place] tel:[phone] [facility] No Information 1 Geoffrey Rhodes. [address], [address], [place], [address], [place]. tel:[phone] Referring Provider: Carmelo Hale MD, [address], [place], [address]. [phone] [facility], [address], [place], [place], [address], [place] tel:[phone] [facility] s-Medical Records No Information 1 Geoffrey Rhodes. [address], [address], [place], [place], [address], [place]. tel:[phone] Referring Provider: Carmelo Hale MD, [address], [place], [address]. tel:[phone] Office/outpa tient visit,est, high [facility], [address], [place], [place], [address], [place] tel:[phone] [facility] 400 lumbar spine (chief complaint) Lumbar post-laminect maciel syndromeNeura l foraminal stenosis of lumbosacral spineSpinal stenosis, lumbar region with neurogenic claudicationN eural foraminal stenosis of lumbar spineFoot drop, left foot 1 Geoffrey Rhodes. [address], [address], [place], [address], [place]. tel:[phone] Referring Provider: Carmelo Hale MD, [address], [place], [address]. tel:[phone] [facility], [address], [place], [place], [address], [place] tel:[phone] [address] Foot drop, left foot Oct- 1 Geoffrey Rhodes. [address], [address], [place], [address], [place]. tel:[phone] Referring Provider: Carmelo Hale MD, [address], [place], [address]. tel:[phone] Office/outpa tient visit,[facility], high [facility], [address], [place], [place], [address], [place] tel:[phone] [facility] 400 lumbar spine (chief complaint) Lumbar post-laminect maciel syndromeNeura l foraminal stenosis of lumbosacral spineSpinal stenosis, lumbar region with neurogenic claudicationF oot drop, left footNeural foraminal stenosis of lumbar spine Sep-2 1 Geoffrey Rhodes. [address], [address], [place], [place], [address], [place]. tel:[phone] Referring Provider: Carmelo Hale MD, [address], [place], [address]. tel:[phone] [facility], [address], [place], [place], [address], tel:[phone] [facility] [address] Postlaminecto my syndrome, not elsewhere classifiedOth symptoms and signs involving the musculoskelet al systemFoot drop, left foot Sep-2 1 Lashae Milton. [address], [address], [place], [place], [address], [place]. tel:[phone] Referring Provider: Carmelo Hale MD, [address], [place], [address]. tel:[phone] [facility], [address], [place], [place], [address], tel:[phone] [facility] [address] Weakness of left lower extremityLeft foot dropPostlamin ectomy syndrome, not elsewhere classified Sep-1 1 Lashae JEANINE Yoan. [address], [address], [place], [place], [address], [place]. tel:[phone] Referring Provider: Carmelo Hale MD, [address], [place], [address]. tel:[phone] [facility], [address], [place], [place], [address], tel:[phone] [facility] s-Medical Records No Information 1 Geoffrey Rhodes. [address], [address], [place], [place], [address], [place]. tel:[phone] Referring Provider: Carmelo Hale MD, [address] [facility] [address], [place], [address]. tel:[phone] [facility], [address], [place], [place], [address], tel:[phone] [facility] [address] Lumbar post-laminect maciel syndrome 1 Alla Juarez. [address] [facility], [address], [place], [place], [address], . tel:[phone] Referring Provider: Roldan Richardson MD, [address] [facility] [address], [place], [address]. tel:[phone] Office/outpa tient visit,[facility], [facility], [address], [place], [place], [address], [place] tel:[phone] [facility] [address] lumbar spine (chief complaint) Lumbar post-laminect maciel syndromeLumba r radiculopathy Neural foraminal stenosis of lumbar spineNeural foraminal stenosis of lumbosacral spineSpinal stenosis, lumbar region with neurogenic claudication 1 Geoffrey Rhodes. [address], [address], [place], [place], [address], [place]. tel:[phone] Referring Provider: Roldan Richardson MD, [address] [facility] [address], [place], [address]. tel:[phone] [facility], [address], [place], [place], [address], tel:[phone] [facility] s-Medical Records No Information 1 Geoffrey Rhodes. [address] [facility], [address], [place], [place], [address], [place]. tel:[phone] Referring Provider: Carmelo Hale MD, [address] [facility] [address], [place], [address]. tel:[phone] Office/outpa tient visit,[facility], [facility], [address], [place], [place], [address], tel:[phone] [facility] 400 lumbar spine (chief complaint) Lumbar post-laminect maciel syndrome 1 Debra Montilla. [address] [facility], [address], [place], [place], [address], . tel:[phone] Referring Provider: Roldan Richardson MD, [address] [facility] [address], [place], [address]. [phone] [facility], [address], [place], [place], [address], [place] tel:[phone] [facility] 204 Facet arthritis of lumbar region 1 Khris Wharton. [address] [facility], [address], [place], [place], [address], [place]. tel:[phone] Referring Provider: Gisselle GARCIA, [address] [facility] [address], [place], [address]. tel:[phone] Office/outpa tient visit,[facility], [address], [place], [place], [address], [place] tel:[phone] [facility] [address] lumbar spine (chief complaint) Postlaminecto my syndromeLong term (current) use of opiate analgesic Jun- 9- 1 Jagjit Pitts. [address], [address], [place], [place], [address], . tel:[phone] Referring Provider: Gisselle GARCIA, [address] [facility] [address], [place], [address]. tel:[phone] [facility], [address], [place], [address], [place] tel:[phone] [facility] [address] Lumbar post-laminect maciel syndrome Jun- 0- 1 Debra AVNG [facility] [place]. [address] [facility], [address], [place], [place], [address], . tel:[phone] Referring Provider: Roldan Richardson MD, [address] [facility] [address], [place], [address]. tel:[phone] Office/outpa tient visit,[facility], high [facility], [address], [place], [place], [address], tel:[phone] [facility] 201 lumbar spine (chief complaint) Lumbar post-laminect maciel syndrome Jun-0 - 1 Debra VANG [facility] [place]. [address] [facility], [address], [place], [place], [address], . tel:[phone] Referring Provider: Roldan Richardson MD, [address] [facility] [address], [place], [address]. tel:[phone] [facility], [address], [place], [place], [address], tel:[phone] [facility] s-Medical Records No Information - 0 Khris Wharton. [address] [facility], [address], [place], [place], [address], [place]. tel:[phone] Referring Provider: Dio Pinedo MD, [address], [place], [address]. tel:[phone] Office/outpa tient visit,[facility], [address], [place], [address], [place] tel:[phone] [facility] 204 lumbar spine (chief complaint) Postlaminecto my syndromeLong term (current) use of opiate analgesic Dec- 0 Khris Wharton. [address], [address], [place], [place], [address], [place]. tel:[phone] Referring Provider: Dio Pinedo MD, [address], [place], [address]. tel:[phone] Office/outpa tient visit,[facility], [address], [place], [place], [address], [place] tel:[phone] [facility] 204 lumbar spine (chief complaint) Body mass index (BMI) 28.0-28.9, adultPostlami nectomy syndromeLong term (current) use of opiate analgesicPain management contract agreement 0 Khris Wharton. [address], [address], [place], [place], [address], [place]. tel:[phone] Office/outpa tient visit,[facility], [address], [place], [place], [address], [place] tel:[phone] [facility] 204 lumbar spine (chief complaint) Body mass index (BMI) 28.0-28.9, adultLumbar post-laminect maciel syndrome Oct- 0 Yanelis Duke. [address], [place], [place], [address], [place]. tel:[phone] Referring Provider: Srikanth Hilario MD, [address], [place], [address]. tel:[phone] [facility], [address], [place], [place], [address], [place] tel:[phone] [facility] No Information 0 Yanelis Duke. [address], [place], [place], [address], [place]. tel:[phone] Referring Provider: Srikanth Hilario MD, [address], [place], [address]. tel:[phone] [facility], [address], [place], [place], [address], [place] tel:[phone] [facility] Lumbar radiculopathy 0 Yanelis Duke. [address], [place], [place], [address], [place]. tel:[phone] Referring Provider: Srikanth Hilario MD, [address], [place], [address]. tel:[phone] Office/outpa tient visit,est, [facility], [address], [place], [place], [address], [place] tel:[phone] [facility] lumbar spine pain (chief complaint) Body mass index (BMI) 28.0-28.9, adultLumbar post-laminect maciel syndrome 0 Yanelis Duke. [address], [place], [address], [place]. tel:[phone] Referring Provider: Srikanth Hilario MD, [address], [place], [address]. tel:[phone] [facility], [address], [address], [place] tel:[phone] [facility] No Information 0 Yanelis Duke. [address], [place], [address], [place]. tel:[phone] Referring Provider: Srikanth Hilario MD, [address], [place], [address]. tel:[phone] [facility], [address], [place], [place], [address], tel:[phone] [facility] Information 0 Yanelis Duke. [address], [address], [place]. tel:[phone] Referring Provider: Srikanth Hilario MD, [address], [place], [address]. tel:[phone] [facility], [address], [address], tel:[phone] [facility] No Information 0 Yanelis Duke. [address], [address], [place]. tel:[phone] Referring Provider: Srikanth Hilario MD, [address], [place], [address]. tel:[phone] Office/outpa tient visit,est, mod [facility], [address], [address], tel:[phone] [facility] [address] lumbar spine pain (chief complaint) Lumbar post-laminect maciel syndromeBody mass index (BMI) 28.0-28.9, adult 0 Yanelis Duke. [address], [place], [place], [address], [place]. tel:[phone] Referring Provider: Srikanth Hilario MD, [address], [place], [address]. tel:[phone] [facility], [address], [place], [place], [address], tel:[phone] [facility] [address] Lumbar post-laminect maciel syndrome 0 Yanelis Duke. [address], [place], [address], [place]. tel:[phone] Referring Provider: Srikanth Hilario MD, [address], [place], [address]. tel:[phone] Office/outpa tient visit,est, mod [facility], [address], [place], [place], [address], [place] tel:[phone] [facility] lumbar spine pain (chief complaint) Body mass index (BMI) 26.0-26.9, adultLumbar post-laminect maciel syndrome Apr-2 0 Yanelis Duke. [address], [place], [address], [place]. tel:[phone] Referring Provider: Srikanth Hilario MD, [address], [place], [address]. tel:[phone] [facility], [address], [place], [place], [address], [place] tel:[phone] [facility] [address] lumbar spine (chief complaint) Lumbar post-laminect maciel syndromeBody mass index (BMI) 26.0-26.9, adult Apr-2 0 Debra Montilla. [address] [facility], [address] [facility], [place], [place], [address], [place]. tel:[phone] Referring Provider: Roldan Richardson MD, [address] [facility] [address] [place] [address], [address]. tel:[phone] [facility], [address], [place], [place], [address], [place] tel:[phone] [facility] s-Medical Records No Information Jul-2 0 Debra Montilla. [address] [facility], [address], [place], [address], [place]. tel:[phone] Referring Provider: Roldan Richardson MD, [address] [facility] [address], [place], [address]. tel:[phone] [facility], [address], [place], [place], [address], [place] tel:[phone] [facility] s-Medical Records No Information Jul-0 0 Debra Montilla. [address] [facility], [address], [place], [place], [address], [place]. tel:[phone] Referring Provider: Roldan Richardson MD, [address] [facility] [address], [place], [address]. tel:[phone] Office/outpa tient visit,[facility], [facility], [address], [place], [place], [address], [place] tel:[phone] [facility] 204 lumbar spine pain (chief complaint) Body mass index (BMI) 26.0-26.9, adultLumbar post-laminect maciel syndrome Apr-0 0 Yanelis Duke. [address], [place], [place], [address], [place]. tel:[phone] Referring Provider: Srikanth Hilario MD, [address], [place], [address]. tel:[phone] [facility], [address], [place], [place], [address], [place] tel:[phone] [facility] 400 lumbar spine (chief complaint) Facet arthritis of lumbar regionLumbar post-laminect maciel syndromeBody mass index (BMI) 26.0-26.9, adult Mar-3 0 Debra Montilla. [address], [address], [place], [place], [address], [place]. tel:[phone] Referring Provider: Roldan Richardson MD, [address], [place], [address]. tel:[phone] Office/outpa tient visit,est, high [facility], [address], [place], [place], [address], [place] tel:[phone] [facility] 204 lumbar spine pain (chief complaint) Body mass index (BMI) 26.0-26.9, adultLumbar post-laminect maciel syndrome Jun-06 02- 0 Yanelis Duke. [address], [place], [place], [address], [place]. tel:[phone] Referring Provider: Srikanth Hilario MD, [address], [place], [address]. tel:[phone] [facility], [address], [place], [place], [address], [place] tel:[phone] [facility] 400 lumbar spine (chief complaint) Lumbar post-laminect maciel syndromeLumba r radiculopathy Jun- 0-202 0 Laverne Morgan. [address], [place], [place], [address], [place]. tel:[phone] Referring Provider: Eddie Donohue, [address], [place], [address]. tel:[phone] [facility], [address], [place], [place], [address], [place] tel:[phone] [facility] 400 lumbar spine (chief complaint) Body mass index (BMI) 26.0-26.9, adultLumbar post-laminect maciel syndromeFacet arthritis of lumbar region Jun- 0 Debra Montilla. [address], [address], [place], [place], [address], [place]. tel:[phone] Referring Provider: Roldan Richardson MD, [address], [place], [address]. tel:[phone] [facility], [address], [place], [place], [address], [place] tel:[phone] [facility] s-Medical Records No Information - 0 Yanelis Duke. [address], [place], [place], [address], [place]. tel:[phone] Referring Provider: Srikanth Hilario MD, [address], [place], [address]. tel:[phone] [facility], [address], [place], [place], [address], [place] tel:[phone] [facility] In Pt No Information Jun-0 0 Debra Montilla. [address] [facility], [address], [place], [place], [address], [place]. tel:[phone] Referring Provider: Aliyah Morrison DO [facility], [address] , [place], [address]. tel:[phone] [facility], [address], [place], [place], [address], [place] tel:[phone] [facility] 400 Lumbar post-laminect maciel syndrome Mar-0 0 Suzanne Otero. [address] [facility], [address], [place], [place], [address], [place]. tel:[phone] [facility], [address], [place], [place], [address], [place] tel:[phone] [facility] 204 No Information Mar-0 0 Yanelis Duke. [address], [place], [place], [address], [place]. tel:[phone] Office/outpa tient visit,[facility], [facility], [address], [place], [place], [address], [place] tel:[phone] [facility] 204 lumbar spine (chief complaint) Body mass index (BMI) 26.0-26.9, adultLumbar post-laminect maciel syndromeLong term (current) use of opiate analgesicEnco unter for therapeutic drug level monitoring 0 Yanelis Duke. [address], [place], [place], [address], . tel:[phone] Referring Provider: Srikanth Hilario MD, [address], [place], [address]. [phone] [facility], [address], [place], [place], [address], [place] tel:[phone] [facility] 400 lumbar spine (chief complaint) Body mass index (BMI) 26.0-26.9, adultLumbar post-laminect maciel syndromeFacet arthritis of lumbar region May- 0 Debra Fernandezuj. [address] [address], [place], [place], [address], . tel:[phone] Referring Provider: Roldan Richardson MD, [address] [address], [place], [address]. tel:[phone] [facility], [address], [place], [place], [address], tel:[phone] [facility] 400 lumbar spine (chief complaint)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
[2025-01-07] VITALS (7 sets, daily range): BP systolic 127–160; BP diastolic 86–95; PULSE 97–103; RESP 17–22; TEMP 36.6; O2SAT 93–96; BMI 28.7
--- OUTSIDE RECORDS SUMMARY | 2025-01-07 18:29 | XMS_ITS | Patient Health Record ---
Author Organization [facility] Address [address] [place] [address] Care Team Providers Care Business Partner Name Role Phone Srikanth Hilario Primary Care [...] W/U Status Risk Notes Problem Testicular hypofunction (414128316) Testicular hypofunction (E29.1) Active confirmed Problem Chronic pain (49242958) Other chronic pain (G89.29) Active confirmed Problem Tobacco user (588811040) Cigarette nicotine dependence without complication (F17.210) Active confirmed Problem Post-laminectomy syndrome (50325539) Postlaminectomy syndrome, not elsewhere classified (M96.1) 02/15/20 Active confirmed Problem Acute bilateral low back pain without sciatica (M54.50) 02/15/20 Active confirmed Plan Of Treatment No Information Insurance Providers Payer Name Payer Address Payer Phone Subscriber Number Group Number Insured Name Patient Relationship to Insured Coverage Start Date Coverage End Date Medicare Part B [facility] [address] [address] TREMAINEMARIANNA MCDANIELS [id number] MAYDA WEINBERG Self - patient is the insured Medical (General) History Surgical History Surgery Date(Month/Year) x5 back
--- OUTSIDE RECORDS SUMMARY | 2025-01-07 18:29 | XMS_ITS | Clinical Summary ---
Author Organization [facility] Address [address] [place] [address] Phone Care Team Providers Care Dewaxer Name Role Phone Unavailable Primary Care Provider Unavailabl e Encounters Date Type Department Care Team Description 12/15/2024 External Device Data [facility] ABSTRACTION Provider, Abstract 10/20/2024 External Device Data [facility] ABSTRACTION Provider, [...] - Risk 60-74 years 1-dose series) 2023 INFLUENZA VACCINE (#1) 2024 2, 12/23/2020, 12/21/2019, Additional history exists COVID-19 Vaccine (5 - 2025-2 6 season) 2024 04/16/2022, 03/29/2021, 08/13/2020, Additional history exists Medical Devices Implanted Type Area Primer Powder Blender Wet Device Identifier Shelf Expiration Date Model / Serial / Lot Lead-07/24/2023 Rose [id number] Implanted:06/28 (Quantity not on file) Lead [employer] 8TC-46 / [id number] / Lead-07/24/2023 Rose [id number] Implanted:06/28 (Quantity not on file) Lead [employer] 8TC-52 / [id number] / Pacemaker-07/23 Abbotts [id number] Implanted:06/28 (Quantity not on file) Pacemaker [employer] [id number] / [id number] / Description:Dr. Thomas joseph [phone], fax [phone] [place] [address] [place] [address]
--- NOTE | 2025-01-07 20:22 | CTR_ITS ---
PROCEDURE INFORMATION: Exam: CT Lumbar Spine Without Contrast Exam date and time: 01/07/2025 8:29 PM Age: 59 years old Clinical indication: Low back pain; Prior surgery; Surgery date: 6+ months; Surgery type: Lspine TECHNIQUE: Imaging protocol: Computed tomography of the lumbar spine without contrast. Radiation optimization: All CT scans at this facility use at least one of these dose optimization techniques: automated exposure control; mA and/or kV adjustment per patient size (includes targeted exams where dose is matched to clinical indication); or iterative reconstruction. COMPARISON: CT lumbar spine wo con* [id number] 12/24/2023 2:54 PM RADIATION DOSE METRICS: Total DLP (mGy-cm): 966.63 FINDINGS: Bones/joints: Fixation rods and screws with postlaminectomy changes L4-S1 hardware intact. No suggestion of loosening. Mild degenerative changes of the bilateral sacroiliac joints. In the setting of moderate disc bulge L3-L4 there is moderate bilateral neural foraminal stenosis. In the setting of right eccentric posterior disc protrusion there is moderate right and no left neural foraminal stenosis L2-L3. Spleen: Calcified granuloma in the spleen. No acute abnormality visualized abdominal or pelvic viscera. Visualized lungs are well pneumatized. Soft tissues: Unremarkable. CT/CT lumbar spine wo con* [id number] IMPRESSION: 1. No acute fracture or subluxation status post posterior fixation rods and screws L4-S1, hardware intact. 2. Degenerative disc disease resulting in neural foraminal stenosis at L2-L3 and L3-L4 as described.
[2025-01-07] MEDS: HYDROmorphone tab 2 MG TABLET PO (20:24)
[2025-01-07] MEDS: orphenadrine 30 mg/mL Inj 2 mL 60 MG IM (21:29)
[2025-01-07] MEDS: morphine 4 mg/mL SDV 1 mL IM ×2 (21:29→23:16)
--- NOTE | 2025-01-07 21:53 | ED_ITS ---
HPI - Back Pain/Injury General: Chief Complaint: Back Pain/Injury Stated Complaint: Back pain Time Seen by Provider: 01/07/25 18:31 Source: patient Mode of arrival: ambulatory Limitations: no limitations History of Present Illness: Patient is a 59-year-old male who presents emergency department complaining of severe lower back pain that has been going on for couple of weeks. Was seen here in the emergency department on 12/27, diagnosed with nonspecific back pain. He has a history of multiple surgeries to his low back, he states that today he had numerous episodes of bladder incontinence and is starting to have numbness throughout the entirety of his lower extremities, including in his groin region. No fever. States that the medications he was sent home with the other day have not been helping at all. He is noted to be bent over the bed at this time stating this is the only thing that helps the pain, has been ambulatory though with significant pain. Tachycardic secondary to pain. MD elicited complaint: back pain Pertinent past history: prior back pain, back surgery and neurological deficit Onset (ago): week(s) Timing: constant Severity: severe Similar Symptoms Previously: Yes Location: lumbar spine Associated symptoms: Reports difficulty walking; Deny abdominal pain, fecal incontinence, fever(s) or syncope Related Data Home Medications ?Medication ?Instructions ?Recorded ?Confirmed sotalol 80 mg tablet 80 mg PO BID 12/04/23 Previous Rx's ?Medication ?Instructions ?Recorded albuterol sulfate 2.5 mg/3 mL 2.5 mg (3 mL) inhalation QID #75 mL 12/04/23 (0.083 %) solution for nebulization gulcometer, stips, and lancets #1 ea 03/25/24 atorvastatin 20 mg tablet (Lipitor) 20 mg PO DAILY cho lesterol #90 tabs 06/02/24 gabapentin 100 mg capsule 100 mg PO BID #60 caps 06/02 apixaban 5 mg tablet (Eliquis) 5 mg PO BID #60 tabs glimepiride 1 mg tablet 1 mg PO QAM #90 tabs 5 metformin 500 mg tablet,extended 500 mg PO BID #60 tab s 10/14/24 release 24 hr hydrocodone 5 mg-acetaminophen 325 1 tab PO Q6H PRN pa in #12 tabs 11/14/24 mg tablet citalopram 20 mg tablet (Celexa) 20 mg PO DAILY #30 ta bs 11/17/24 cyclobenzaprine 10 mg tablet 10 mg PO BID PRN muscle s pasm #180 11/19/24 tabs fluticasone propionate 50 1 spray intranasal BID #16 g dominique 11/19/24 mcg/actuation nasal spray,suspension (Flonase Allergy Relief) diclofenac sodium 75 mg 75 mg PO Q12H PRN pain #20 t abs 12/27/24 tablet,delayed release prednisone 20 mg tablet 20 mg PO TID #15 tabs tizanidine 4 mg tablet 4 mg PO Q6H PRN muscle spast icity 12/27/24 #20 tabs Allergies Allergy/AdvReac Type Severity Reaction Status Date / Time No Known Allergies Allergy Verified 11/19/24 13:51 Review of Systems General: Reports: 10 or more systems reviewed and unremarkable except in HPI and below Const: Reports: other (denies trauma); Denies: fever(s), change in weight or night sweats Card: Denies: chest pain, lightheadedness or syncope Resp: Denies: dyspnea GI: Denies: abdominal pain or fecal incontinence : Reports: urinary incontinence Musc: Reports: back pain and extremity pain; Denies: neck pain Skin/Breast: Denies: rash or skin pain Neuro: Reports: numbness in extremities, weakness in extremities, sensory changes and difficulty walking; Denies: headache(s), lack of coordination, frequent falls or involuntary movements PFSH ED PFSH: Medical History Nephrolithiasis Mixed hyperlipidemia Alcohol abuse Chronic hyponatremia Low testosterone in male 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 Chronic back pain greater than 3 months duration 5 back surgeries; has had injections; has been on opiates in past Nicotine dependence, cigarettes, with other nicotine-induced disorders LDCT 3.4.25 done--repeat one year Hx of hepatitis C treated and cleared with antiviral Generalized anxiety disorder Syncope Other male erectile dysfunction Diabetes mellitus Depression Nocturia COPD (chronic obstructive pulmonary disease) Atrial fibrillation Pacemaker 2023 Surgical History Hx of cardiac pacemaker placed 2023 by [facility] Hx of colonoscopy 2019--in [place]; normal History of lumbar surgery has had 5 surgeries Family History Father Congestive heart failure (CHF) Mother Heart disease Diabetes Brother Diabetes Social History Smoking and tobacco/nicotine status: current every day tobacco/nicotine user cigarettes Packs smoked per day: 1 [ Other cigarette details: started age 12] Alcohol intake: current Alcohol intake frequency: 3 or more drinks per day Alcohol type: beer Substance/Drug Use: former Date of last use: last use 40yrs ago Former substance use details: 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 Household members: spouse Marital status: Number of children: 2 Highest education level completed: GED or Equivalent Current occupational status: disabled 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; 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 No significant reproducible spinous process tenderness or paracervical, parathoracic, or paralumbar tenderness to palpation. Range of motion severely limited with flexion and extension at the low back, as well as lateral rotation secondary to pain. Postoperative scar to lower lumbar spine. Extremity: COMMON NORMALS: normal to inspection and full ROM Neuro: COMMON NORMALS: patient oriented x3, moves all extremities, no focal motor deficits, deep tendon reflexes 2+ bilaterally and gait normal SENSORIUM/ORIENTATION: Yes alert OTHER: Endorsing bilateral diminished sensation to light touch from anterior thigh all the way to feet. Skin: COMMON NORMALS: no rashes or lesions noted GENERAL SKIN EXAM: no rashes or lesions noted Course Vital Signs: Vital signs: Vital Signs Temperature 97.8 F 01/07/25 18:26 Pulse Rate 97 01/07/25 23:17 Respiratory Rate 20 H 01/07/25 23:17 Blood Pressure 130/95 01/07/25 23:17 Pulse Oximetry 94 01/07/25 23:17 Oxygen Delivery Me thod Room Air 01/07/25 22:26 MDM - Back Pain/Injury Medical Decision Making Patient presenting here with low back pain, has been seen here previously on 12/27 diagnosed with back pain nonspecific. States pain has worsened, he has history of multiple low back surgeries which she states were performed in [place]. Notes that today he had onset of urinary incontinence and numbness diffusely in bilateral lower extremities, including in the groin. Notably uncomfortable on exam as he is leaning over the bed, stating this is only where he can feel comfortable. Tachycardic secondary to pain, requesting pain medications. He does have a history of a pacemaker. Lumbar spine CT ordered does not show any acute hardware abnormalities or other abnormal findings. With his onset of symptoms concerning for cauda equina syndrome, I spoke to Dr. Sanford, ER doc with [facility], who accepts patient for transfer for MRI. Patient's pacemaker is evaluated and his model appears compatible with certain MRI. Informed him of this plan, he will transfer by ambulance. Labs Radiology Impressions Lumbar Spine CT 01/07/25 20:22 IMPRESSION: 1. No acute fracture or subluxation status post posterior fixation rods and screws L4-S1, hardware intact. 2. Degenerative disc disease resulting in neural foraminal stenosis at L2-L3 and L3-L4 as described. All radiology interpretation(s) finalized by discharge Discharge Plan Discharge Patient Disposition: Xfer Short-Term Hosp Clinical Impression: Back pain, Urinary incontinence Condition: Stable Referrals: Yuki Mahan MD [Primary Care Provider, [facility]] Print Language: Indonesian Coding Level of Care Code ED Fuel Efficient Automobile Designer for Colleen Vaughan
== END 2025-01-07 23:19 | disposition short-term general hospital (02) ==
PROVIDERS: Emergency Provider Physician Assistant; PCP Family Medicine
DX: M54.9 Dorsalgia, unspecified (principal); R32 Unspecified urinary incontinence; F17.210 Nicotine dependence, cigarettes, uncomplicated; Z95.0 Presence of cardiac pacemaker; E78.2 Mixed hyperlipidemia; J44.9 Chronic obstructive pulmonary disease, unspecified; E11.40 Type 2 diabetes mellitus with diabetic neuropathy, unspecified
CPT/HCPCS: 72131; 96372; 99284; J1100; J2270; J2360; J9999

== ENCOUNTER 2025-01-11 14:15 | Emergency (ER) | payer MEDICARE, SELFPAY ==
[2025-01-11 14:37] VITALS: BP 140/73; PULSE 110; RESP 18; TEMP 36.7; O2SAT 96; BMI 28.7
--- OUTSIDE RECORDS SUMMARY | 2025-01-11 15:15 | XMS_ITS | Clinical Summary ---
Author Organization [facility] Address [address] [place] [address] Phone Care Team Providers Care Ward Supervisor Name Role Phone Unavailable Primary Care Provider [...] history exists Medical Devices Implanted Type Area Pharmacy Customer Care Specialist Device Identifier Shelf Expiration Date Model / Serial / Lot Lead-07/24/2023 Rose [id number] Implanted:06/28 (Quantity not on file) Lead [employer] [facility] [employer] 8TC-46 / [id number] / Lead-07/24/2023 Rose 2088tc-52 Implanted:06/28 (Quantity not on file) Lead [employer] [facility] [employer] 8TC-52 / [id number] / Pacemaker-07/23 Abbotts [id number] Implanted:06/28 (Quantity not on file) Pacemaker [facility] [employer] [id number] / [id number] / Description:Dr. Thomas joseph [phone], fax [phone] [place] [address] [address]
--- OUTSIDE RECORDS SUMMARY | 2025-01-11 15:15 | XMS_ITS | Patient Health Record ---
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 until pt. responsive or EMS arrives; Duration: 30 days 02/02/2021 Active Cyclobenzaprine HCl 10 MG Tablet 1 tablet as needed Orally BID prn spasms; Duration: 30 days for spasms 09/22/2020 Active oxyCODONE-Acetaminophen 10-325 MG Tablet 1 tablet as needed Orally BID as needed for pain.; Duration: 30 days FOR NON ACUTE PAIN. Fill on or after March 30, 2021 03/30/2021 Active tiZANidine HCl 4 MG Tablet 1 tablet as needed Orally Three times a day; Duration: 30 days 12/23/2020 Active Morphine Sulfate ER 15 MG Tablet Extended Release 1 tablet Orally Q8H for pain.; Duration: 30 days FOR NON ACUTE PAIN. Fill on or after March 30, 2021 03/30/2021 Active Meclizine HCl 25 MG Tablet TK 1 T PO TID PRF DIZZINESS OR NAUSEA Oral; Duration: 10 Active Testosterone Cypionate 200 MG/ML Solution (Schedule III Drug) INJECT 1ML INTO THE MUSCLE Q 7 DAYS UTD Intramuscular; Duration: 70 Active Ibuprofen 200 MG Tablet 1 tablet with fo od or milk as needed Orally Three times a day 07/27/2020 Active Cialis 10 MG Tablet 1 tablet as needed Orally; Duration: 30 day(s) 07/27/2020 Active Social History Tobacco Use: Social History Observation Description Date Details (start date - stop date) Current Smoker NA - NA Social History Drugs/Alcohol: Social Info Question Answer Notes OPIOID Risk Tool Family Hx Alcohol? No Family Hx Illegal Drugs? No Family Hx Rx Drugs? No Personal Hx Alcohol? No Personal Hx Illegal Drugs? No Personal Hx Rx Drugs? No Age between 16-45 years? No History of Preadolescent Sexual Abuse? No ADD, OCD, Bipolar, Schizophrenia? No Depression? No TOTAL SCORE 0 Risk Level for Opioid Use low Alcohol Screen Did you have a drink containing alcohol in the past year? Yes How often did you have a drink containing alcohol in the past year? 2 to 4 times a month (2 points) How many drinks did you have on a typical day when you were drinking in the past year? 5 or 6 drinks (2 points) How often did you have 6 or more drinks on one occasion in the past year? Less than monthly (1 point) Points 5 Interpretation Positive Tobacco Use: Social Info Question Answer Notes Tobacco Use/Smoking Are you a: current smoker How many cigarettes a day do you smoke? - Are you interested in quitting? Not ready to quit Section Notes: MRI lumbar 2020 MRI lumbar 2020 MRI lumbar 2020 MRI L-SPINE DOS 10/17/20 MRI lumbar 2020 MRI L-SPINE DOS 10/17/20 MRI lumbar 2020 MRI L-SPINE DOS 10/17/20 MRI lumbar 2020 MRI L-SPINE DOS 10/17/20 MRI lumbar 2020 MRI L-SPINE DOS 10/17/20 MRI lumbar 2020 MRI L-SPINE DOS 10/17/20 Problems Problem Type SNOMED Code ICD Code Onset Dates Problem Status W/U Status Risk Notes Problem Sciatica (49441307) Lumbago with sciatica, right side (M54.41) Active confirmed Problem Sciatica (34299464) Lumbago with sciatica, left side (M54.42) Active confirmed Problem Lumbar post-laminectomy syndrome (016520967) Lumbar post-laminectomy syndrome (M96.1) Active confirmed Problem High risk drug monitoring status (037570452) [facility]FP (current) use of opiate analgesic (Z79.891) Active confirmed Problem Lumbar radiculopathy (598951247) Lumbar radiculopathy (M54.16) Active confirmed Plan Of Treatment Pending Test Test Name Order Date MRI : Lumbar Spine With And Without Cont rast 07/27/2020 Caudal Epidural Steroid Injection - Diag nostic 08/26/2020 Caudal Epidural Steroid Injection - Diag nostic 07/27/2020 Transforaminal Injection (Lumbar) (Left) Diagnostic 10/21/2020 Functional Capacity Evaluation (FCE) POC Urine Drug Screen IRSF Pain 11 07/27 Insurance Providers Payer Name Payer Address Payer Phone Subscriber Number Group Number Insured Name Patient Relationship to Insured Coverage Start Date Coverage End Date Medicare [place] ONLY [address] [address] [place] [address] [id number] Reji Remy Jr Self - patient is the insured 2 Poncho Puga, Esq [address] [facility] [address] [place] [phone] [id number] Reji Remy Jr Self - patient is the insured Medical (General) History Medical History History ICD Code vertigo Surgical History Surgery Date(Month/Year) Lumbar surgery 1999 lumbar laminectomy 04/2019 laminectomy revision 06/2019 Lumbar Fusion-Dr Hale 01/2021 Hospitalization History Reason Date(Month/Year) See Surgical History
--- OUTSIDE RECORDS SUMMARY | 2025-01-11 15:15 | XMS_ITS | Patient Health Record ---
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 Name Role Phone Srikanth Hilario Primary Care [...] W/U Status Risk Notes Problem Testicular hypofunction (976486790) Testicular hypofunction (E29.1) Active confirmed Problem Chronic pain (24863240) Other chronic pain (G89.29) Active confirmed Problem Tobacco user (935304539) Cigarette nicotine dependence without complication (F17.210) Active confirmed Problem Post-laminectomy syndrome (46772988) Postlaminectomy syndrome, not elsewhere classified (M96.1) 02/15/20 Active confirmed Problem Acute bilateral low back pain without sciatica (M54.50) 02/15/20 Active confirmed Plan Of Treatment No Information Insurance Providers Payer Name Payer Address Payer Phone Subscriber Number Group Number Insured Name Patient Relationship to Insured Coverage Start Date Coverage End Date Medicare Part B [facility] [address] [address] TREMAINEMARIANNA MCDANIELS [id number] MAYDA WEINBERG Self - patient is the insured Medical (General) History Surgical History Surgery Date(Month/Year) x5 back
== END 2025-01-11 15:22 | disposition left against medical advice (07) ==
PROVIDERS: Emergency Provider Family Medicine; PCP Family Medicine
DX: Z53.21 Procedure and treatment not carried out due to patient leaving prior to being seen by health care provider (principal); M54.50 Low back pain, unspecified

== ENCOUNTER 2025-02-05 15:35 | Emergency (ER) | payer MEDICARE, SELFPAY ==
[2025-02-05 15:36] VITALS: BP 147/89; PULSE 97; RESP 18; TEMP 36.7; O2SAT 96; BMI 28.7
--- NOTE | 2025-02-05 15:37 | CTR_ITS ---
PROCEDURE INFORMATION: Exam: CT Lumbar Spine Without Contrast Exam date and time: 02/05/2025 3:57 PM Age: 59 years old Clinical indication: Injury or trauma; Fall; Blunt trauma (contusions or hematomas); Prior surgery; Surgery date: 3-7 days post-operative; Surgery type: Lower back; Additional info: Postop back pain fall TECHNIQUE: Imaging protocol: Computed tomography of the lumbar spine without contrast. Radiation optimization: All CT scans at this facility use at least one of these dose optimization techniques: automated exposure control; mA and/or kV adjustment per patient size (includes targeted exams where dose is matched to clinical indication); or iterative reconstruction. COMPARISON: CT lumbar spine wo con* [id number] 01/07/2025 8:29 PM RADIATION DOSE METRICS: Total DLP (mGy-cm): 803.23 FINDINGS: Bones/joints: Status post laminectomies and posterior spinal fusion at L3-L4 with bilateral pedicle screws at L3 and L4. Screw tracts are seen at the L5 and S1 level bilaterally. Alignment of the lumbar spine is anatomic. Vertebral body heights are preserved. Evidence of discectomies at the L4-L5 and L5-S1 level. Vacuum disc phenomenon seen at L4-L5 and L3-L4. No severe spinal stenosis. The spinal canal is focally obscured at the level of the hardware due to beam hardening artifact. There is gas/packing material in the posterior paraspinal soft tissues at L3-L4 consistent with recent surgery. Also subcutaneous posterior paraspinal fluid. Soft tissues: See Bones/joints finding. CT/CT lumbar spine wo con* [id number] IMPRESSION: 1. Posterior spinal fusion at the L3-L4 level with posterior paraspinal postoperative changes. 2. Evidence of prior spine surgery at L5-S1.
[2025-02-05 17:21] VITALS: BP 148/96; PULSE 98; O2SAT 99
[2025-02-05] MEDS: morphine 4 mg/mL SDV 1 mL IVP (17:29)
--- NOTE | 2025-02-05 17:46 | W.ED.BACK ---
HPI - Back Pain/Injury General: Chief Complaint: Back Pain/Injury Stated Complaint: fall - post op back surgery Time Seen by Provider: 02/05/25 15:36 History of Present Illness: 59-year-old male presents to the emergency room complaining of back pain. Patient had back surgery last week immediately postop he had a drain in place drain was removed at the time of discharge yesterday he let his dogs out slipped on some wet grass and has severe back pain. He did not completely fall or hit his back. He also has some swelling around his low back. Immediately surgery to drain in place it was removed prior to his discharge. His surgery was done at [facility] in [place] by Dr. Avalos. No fecal incontinence no urinary retention no fever sweats or chills Associated symptoms: Deny abdominal pain, chills, dysuria, fever(s) or urinary urgency Related Data Home Medications ?Medication ?Instructions ?Recorded ?Confirmed sotalol 80 mg tablet 80 mg PO BID 12/04/23 11/19/24 Previous Rx's ?Medication ?Instructions ?Recorded albuterol sulfate 2.5 mg/3 mL 2.5 mg (3 mL) inhalation QID #75 mL 12/04/23 (0.083 %) solution for nebulization gulcometer, stips, and lancets #1 ea 03/25/24 atorvastatin 20 mg tablet (Lipitor) 20 mg PO DAILY cholesterol #90 tabs 06/02/24 gabapentin 100 mg capsule 100 mg PO BID #60 caps 06/02/24 apixaban 5 mg tablet (Eliquis) 5 mg PO BID #60 tabs 09/08/24 glimepiride 1 mg tablet 1 mg PO QAM #90 tabs 10/02/24 hydrocodone 5 mg-acetaminophen 325 1 tab PO Q6H PRN pain #12 tabs 11/14/24 mg tablet citalopram 20 mg tablet (Celexa) 20 mg PO DAILY #30 tabs 11/17/24 fluticasone propionate 50 1 spray intranasal BID #16 grams 11/19/24 mcg/actuation nasal spray,suspension (Flonase Allergy Relief) metformin 500 mg tablet,extended 500 mg PO BID #60 tabs 01/23/25 release 24 hr diclofenac sodium 75 mg 75 mg PO Q12H PRN pain #20 tabs 02/05/25 tablet,delayed release hydrocodone 5 mg-acetaminophen 325 1 tab PO Q6H PRN pain #12 tabs 02/05/25 mg tablet prednisone 20 mg tablet 20 mg PO TID #15 tabs 02/05/25 tizanidine 4 mg tablet 4 mg PO Q6H PRN muscle spasticity 02/05/25 #20 tabs Allergies Allergy/AdvReac Type Severity Reaction Status Date / Time No Known Allergies Allergy Verified 11/19/24 13:51 Review of Systems Const: Denies: fever(s) or chills Card: Denies: chest pain Resp: Denies: dyspnea GI: Denies: abdominal pain : Denies: dysuria, urinary frequency or urinary urgency Musc: Reports: back pain; Denies: neck pain Skin/Breast: Denies: rash PFSH ED PFSH: Medical History (Updated 02/05/25 @ 18:17 by Flavio Skinner DO) Nephrolithiasis Mixed hyperlipidemia Alcohol abuse Chronic hyponatremia Low testosterone in male 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 Chronic back pain greater than 3 months duration 5 back surgeries; has had injections; has been on opiates in past Nicotine dependence, cigarettes, with other nicotine-induced disorders LDCT 3.4.25 done--repeat one year Hx of hepatitis C treated and cleared with antiviral Generalized anxiety disorder Syncope Other male erectile dysfunction Diabetes mellitus Depression Nocturia COPD (chronic obstructive pulmonary disease) Atrial fibrillation Pacemaker 2023 Surgical History (Updated 02/05/25 @ 18:17 by Flavio Skinner DO) Hx of cardiac pacemaker placed 2023 by Ram[facility]rez melchor [facility] Hx of colonoscopy 2018--in [place]; normal History of lumbar surgery has had 5 surgeries Family History Father Congestive heart failure (CHF) Mother Heart disease Diabetes Brother Diabetes Social History Smoking and tobacco/nicotine status: current every day tobacco/nicotine user cigarettes Packs smoked per day: 1 [ Other cigarette details: started age 12] Alcohol intake: current Alcohol intake frequency: 3 or more drinks per day Alcohol type: beer Substance/Drug Use: former Date of last use: last use 40yrs ago Former substance use details: 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 Household members: spouse Marital status: Number of children: 2 Highest education level completed: GED or Equivalent Current occupational status: disabled 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; 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 Physical Exam Const: GENERAL APPEARANCE: cooperative ORIENTATION/CONSCIOUSNESS: Yes awake, Yes oriented to person, Yes oriented to place and Yes oriented to time HENMT: COMMON NORMALS: normocephalic, atraumatic and hearing grossly normal bilaterally HEAD & SCALP: normocephalic and atraumatic Resp: COMMON NORMALS: normal respiratory effort, No retractions, No use of accessory muscles and clear to auscultation bilaterally AUSCULTATION: clear to auscultation bilaterally Cardio: COMMON NORMALS: regular rate, regular rhythm and No murmurs present (Cardio) RATE: regular rate RHYTHM: regular rhythm GI: COMMON NORMALS: Soft to palpation and No hepatosplenomegaly present AUSCULTATION: Yes normoactive bowel sounds PALPATION: Yes Soft to palpation, No Tenderness to palpation present (GI), No Guarding due to palpation present (GI) and Yes No hepatosplenomegaly present Back/Pelvis: OTHER: Examination of the back incision is well-approximated no drainage no redness no erythema there is slight bulging in the midportion of the incision in the lumbar spine it is fluid-filled bulge with no tenderness, no fluid expressed with palpation Extremity: COMMON NORMALS: normal to inspection, capillary refill normal, no clubbing, cyanosis or edema, no calf tenderness and no pedal edema Neuro: SENSORIUM/ORIENTATION: Yes oriented to person, Yes oriented to place and Yes oriented to time Skin: COMMON NORMALS: no rashes or lesions noted GENERAL SKIN EXAM: no rashes or lesions noted Course Vital Signs: Vital signs: Vital Signs Temperature 98.1 F 02/05/25 15:36 Pulse Rate 85 02/05/25 18:32 Respiratory Rate 18 02/05/25 15:36 Blood Pressure 148/96 02/05/25 17:21 Pulse Oximetry 96 02/05/25 18:32 Oxygen Delivery Me thod Room Air 02/05/25 15:36 MDM - Back Pain/Injury Medical Decision Making Severe low back pain after slip and near fall. Patient has palpable flexion over the area in the low back with no overlying redness no drainage. He has not had a fever. Believe the fluctuant area is seroma. This pain is improved after medications to discharge him home with diclofenac tizanidine and steroid taper hydrocodone to use as needed should continue to follow the same restrictions he was given at the time of discharge and follow-up with Dr. Avalos at [place] as per his discharge instructions return if he develops fever redness or erythema at the incision site or intractable pain Medical Records I reviewed the patient's medical records. Labs I reviewed the patient's lab results. Radiology Impressions Lumbar Spine CT 02/05/25 15:37 IMPRESSION: 1. Posterior spinal fusion at the L3-L4 level with posterior paraspinal postoperative changes. 2. Evidence of prior spine surgery at L5-S1. All radiology interpretation(s) finalized by discharge Discharge Plan Discharge Patient Disposition: Home Clinical Impression: Postoperative seroma, History of back surgery, Strain of lumbar region Condition: Stable Prescriptions: New tizanidine 4 mg tablet 4 mg PO Q6H PRN (Reason: muscle spasticity) Qty: 20 0RF Rx Instructions: do not exceed 3 doses per 24 hrs hydrocodone-acetaminophen 5-325 mg tablet 1 tab PO Q6H PRN (Reason: pain) Qty: 12 0RF prednisone 20 mg tablet 20 mg PO TID Qty: 15 0RF Rx Instructions: 1 p.o. 3 times daily x3 days, 1 p.o. twice daily x2 days, 1 p.o. daily x2 days diclofenac sodium 75 mg tablet,delayed release (DR/EC) 75 mg PO Q12H PRN (Reason: pain) Qty: 20 0RF Discontinued cyclobenzaprine 10 mg tablet 10 mg PO BID PRN (Reason: muscle spasm) Qty: 180 1RF tizanidine 4 mg tablet 4 mg PO Q6H PRN (Reason: muscle spasticity) Qty: 20 0RF Rx Instructions: do not exceed 3 doses per 24 hrs prednisone 20 mg tablet 20 mg PO TID Qty: 15 0RF Rx Instructions: 1 p.o. 3 times daily x3 days, 1 p.o. twice daily x2 days, 1 p.o. daily x2 days diclofenac sodium 75 mg tablet,delayed release (DR/EC) 75 mg PO Q12H PRN (Reason: pain) Qty: 20 0RF No Action sotalol 80 mg tablet 80 mg PO BID albuterol sulfate 2.5 mg /3 mL (0.083 %) solution for nebulization 2.5 mg inhalation QID Qty: 75 0RF gabapentin 100 mg capsule 100 mg PO BID Qty: 60 2RF atorvastatin [Lipitor] 20 mg tablet 20 mg PO DAILY Qty: 90 1RF fluticasone propionate [Flonase Allergy Relief] 50 mcg/actuation spray,suspension 1 spray intranasal BID Qty: 16 2RF Rx Instructions: administer into each nostril (DME) gulcometer, stips, and lancets See Rx Instructions .Route .MEDSUPPLY Qty: 1 0RF Rx Instructions: As directed Eliquis 5 mg tablet 5 mg PO BID Qty: 60 2RF glimepiride 1 mg tablet 1 mg PO QAM Qty: 90 0RF Rx Instructions: administer with breakfast citalopram [Celexa] 20 mg tablet 20 mg PO DAILY Qty: 30 2RF metformin 500 mg tablet extended release 24 hr 500 mg PO BID Qty: 60 2RF hydrocodone-acetaminophen 5-325 mg tablet 1 tab PO Q6H PRN (Reason: pain) Qty: 12 0RF Discharge Orders: Discharge ED (Routine); Ordered 02/05/25 Ordered By: Flavio Skinner Referrals: Yuki Mahan MD [Primary Care Provider, Family Practice] Discharge Diet: Usual diet Discharge Activity: Limit activity as instructed Patient Instructions: Opioid Safety, Pain Management, Patient Portal & Dena Instructions Activity Restrictions/Additional Instructions: Thank you for choosing [facility] for your healthcare needs today. It is very important that you follow up as instructed or that you return to the Emergency Department should you have concerns or if your condition changes or worsens in any way. Emergency department visits are focused on emergent conditions, in some cases you may require further evaluation on an outpatient basis. You were seen in the emergency room with complaints of back pain after slipping 1 week after your back surgery. CT does not show any acute injury. On exam there is a seroma which is a fluid collection under the skin these usually resolve on their own. Continue your same discharge instructions as per your back surgeon. If you have a fever uncontrolled pain you can return to the emergency room. You are given pain medications here we will discharge you home with pain medicine as well as steroid muscle relaxer and anti-inflammatory follow-up with your back surgeon as scheduled. (Please note that included in your discharge packet is information concerning opioid safety and pain management. This information is given to all patients were discharged from the ER regardless of their discharge diagnosis or the medicines they usually take or are prescribed.) Print Language: Guatemalan Coding Level of Care Code ED Applications Support Engineer for Colleen Vaughan
[2025-02-05] MEDS: HYDROmorphone 0.5 MG/0.5 ML INJ IVP (18:20)
[2025-02-05 18:32] VITALS: PULSE 85; O2SAT 96
== END 2025-02-05 18:39 | disposition home or self-care (01) ==
PROVIDERS: Emergency Provider Family Medicine; PCP Family Medicine
DX: L76.34 Postprocedural seroma of skin and subcutaneous tissue following other procedure (principal); Y83.8 Other surgical procedures as the cause of abnormal reaction of the patient, or of later complication, without mention of misadventure at the time of the procedure; S39.012A Strain of muscle, fascia and tendon of lower back, initial encounter; W01.0XXA Fall on same level from slipping, tripping and stumbling without subsequent striking against object, initial encounter
CPT/HCPCS: 72131; 96374; 96375; 99285; J1171; J2270

== ENCOUNTER → 2025-03-11 10:11 | Outpatient (BNVA) | payer MEDICARE, SELFPAY | PROVIDERS: PCP Family Medicine; Visit Provider Family Medicine | DX: E78.2 Mixed hyperlipidemia (principal); I48.91 Unspecified atrial fibrillation; R79.89 Other specified abnormal findings of blood chemistry; E11.65 Type 2 diabetes mellitus with hyperglycemia; Z12.5 Encounter for screening for malignant neoplasm of prostate | CPT/HCPCS: 80053; 80061; 84402; G0103 ==